=== PATIENT | female | born 1935 | race Caucasian/White ===

== ENCOUNTER 2016-12-16 13:09 | Observation (INO) | payer MEDICARE, OTHER ==
[~2016-12-16] VITALS: Ht 154.9 cm; Wt 85.9 kg
--- NOTE | ~2016-12-16 | OP ---
PATIENT NAME: VINAY SYED MEDICAL RECORD: [id number] :37 LOCATION:D.M2 D.2120 ADMISSION DATE:12/16/16 SURGEON: CYRUS JOHANSEN MD DATE OF OPERATION: 12/17/2016 PROCEDURES: 1. PTCA stent of the LAD. 2. Intravascular ultrasound of the LAD. 3. Left heart catheterization. 4. Selective coronary angiography. 5. Left ventriculogram. INDICATION: Angina and coronary artery disease. PROCEDURE IN DETAIL: After informed consent was obtained and after a detailed explanation of the risks, benefits as well as alternative therapies, the patient elected to proceed with angiogram and angioplasty. The right radial area was prepped and draped in normal sterile fashion. The right radial artery was cannulated via modified Seldinger technique with placement of 6-Pashto sheath. All catheters exchanged through this sheath. FINDINGS: The left ventriculogram was performed in standard 30-degree CHAHAL view, reveals preserved cardiac wall motion, ejection fraction 55%. SELECTIVE CORONARY ANGIOGRAPHY: 1. Left main showed no significant angiographic disease. 2. Left anterior descending has greater than 70% stenosis throughout the proximal portion confirmed by intravascular ultrasound. 3. Left circumflex shows moderate irregularities, but no flow-limiting stenosis. 4. Right coronary has mild irregularities, but no flow-limiting stenosis. PTCA STENT OF THE LAD: The stent used was a 3.0 x 26 mm Integrity. Result was 0% residual stenosis. OVERALL IMPRESSION: Successful percutaneous transluminal coronary angioplasty stent of the left anterior descending going from greater than 70% initial stenosis to 0% residual stenosis. TRANSINT:[id number] Voice Confirmation ID: [id number] DOCUMENT ID: [id number] CYRUS JOHANSEN MD CC: [id number] DICTATION DATE: 12/17/16 1126 ELASTIC ATTACHER OVERLOCK: 12/18/16 0136 DIS IN 12/17/16 [facility] [address] [place] [address]
--- NOTE | ~2016-12-16 | HEMODYNAMI ---
PATIENT:VINAY SYED MEDICAL RECORD: [id number] : 39 LOCATION:[facility] D.2120 ADMISSION DATE: 12/16/16 Generatedon:12/17/201611:31 Patient name: VINAY SYED Patient #: [id number] SSN: DO B: 1935 Date of study: 12/17/2016 Page: Of Hemodynamic Procedure Report Patient Data Patient Demographics Procedure consent was obtained First Name: VINAY Gender: Female Last Name: YAHAIRA : 1935 [facility] Initial: ANUPAM Age: 81 year(s) Patient #: [id number] Race: Unknown Additional ID: [id number] Contact details Address: [address] [place] [address] [address] State: [place] City: [facility] Zip code: [address] Past Medical History Allergies Allergen Reaction Date Comments Reported Other allergy 12/17/2016 codiene Admission Admission Data Admission Date: 12/16/2016 Admission Time: 17:47 Room #: D.2120 Procedure Procedure Types Cath Procedure Diagnostic Procedure [facility] w/Coronaries FFR/IVUS Intra-Coronary IVUS Initial PCI Procedure Coronary Stent Initial Miscellaneous Procedures Moderate Sedation up to 15 minutes Procedure Description Procedure Date Procedure Date: 12/17/2016 Procedure Start Time: 11:07 Procedure End Time: 11:26 Procedure Staff Name Function Will Kelly MD Performing Physician Adriano Peter RN Nurse Lorna Stevenson RT Monitor Toni Howard RT Scrub Rody Means RT Scrub Procedure Data Cath Procedure Fluoroscopy Diagnostic fluoroscopy Total fluoroscopy Time: 5.9 time: 5.9 min min Diagnostic fluoroscopy Total fluoroscopy dose: 674 dose: 674 mGy mGy Contrast Material Contrast Material Type Amount (ml) Isovue 300 89 Entry Location Entry Primary Successful Side Size Upsize Upsize Entry Closure Marsh ccessful Closure Location (Fr) 1 (Fr) 2 (Fr) Remarks Device Remarks Radial Right 6 Fr Mechanical TR band artery Short Compression Estimated blood loss: 10 ml Diagnostic catheters Device Type Used For End Catheter Placement Diagnostic Terumo 5Fr Procedure [place] 110cm catheter Procedure Complications No complications Procedure Medications Medication Administration Route Dosage 0.9% NaCl I.V. 100 ml/hr Oxygen NC 2 l/min Heparin Flush Bag added to field 2 bags (1000units/500ml NS) Lidocaine 2% added to field 20 Radial Cocktail added to field 1 syringe (Verapomil 2mg/Nitro 400mcg/Heparin 1500units) Versed I.V. 1 mg Fentanyl I.V. 50 mcg Versed I.V. 1 mg Fentanyl I.V. 50 mcg Radial Cocktail I.A. 1 syringe (Verapomil 2mg/Nitro 400mcg/Heparin 1500units) Heparin Bolus I.V. 4000 units Integrilin (Bolus I.V. 8.5 ml 2mg/ml) Plavix P.O. 600 mg Hemodynamics Rest Heart Rate: 85 (bpm) Snapshots Pre Cath Intra NCS Post Cath Vital Signs Time Heart Resp SPO2 etCO2 [id number] NIBP (mmHg) Rhythm Pain Sedation Rate (ipm) (%) (mmHg) (mmHg) Status Level (bpm) 10:57:43 86 26 94 0 0 165/89(121) NSR 0 (11) 10(A) , No pain 11:02:41 85 16 88 0 0 160/81(126) NSR 0 (11) 10(A) , No pain 11:07:31 84 14 98 0 0 153/74(116) NSR 0 (11) 10(A) , No pain 11:12:22 85 16 92 0 0 137/65(106) NSR 0 (11) 10(A) , No pain 11:17:11 87 19 94 0 0 145/75(113) NSR 0 (11) 10(A) , No pain 11:22:02 86 15 96 0 0 145/78(119) NSR 0 (11) 10(A) , No pain 11:26:54 86 14 97 0 0 153/78(127) NSR 0 (11) 10(A) , No pain Medications Time Medication Route Dose Verified Delivered Reason Note s Effectiveness by by 10:54:46 0.9% NaCl I.V. 100 Adriano Adriano Per physician ml/hr Brittani Peter RN RN 10:55:01 Oxygen NC 2 l/min Adriano Adriano Per physician Brittani Peter RN RN 10:55:22 Heparin Flush added 2 bags Adriano Adriano used for Bag to Brittani Peter procedure (1000units/500ml field RN RN NS) 10:55:44 Lidocaine 2% added 20ml Adriano Adriano for local to vial Lormessi Peter anesthetic RN RN 11:05:31 Radial Cocktail added 1 Adriano Adriano used for (Verapomil to syringe Brittani Peter procedure 2mg/Nitro RN RN 400mcg/Heparin 1500units) 11:05:42 Versed I.V. 1 mg Adriano Adriano for sedation Brittani Peter RN RN 11:05:54 Fentanyl I.V. 50 mcg Adriano Adriano for sedation Brittani Peter RN RN 11:08:12 Versed I.V. 1 mg Adriano Adriano for sedation Brittani Peter RN RN 11:08:23 Fentanyl I.V. 50 mcg Adriano Adriano for sedation Brittani Peter RN RN 11:09:17 Radial Cocktail I.A. 1 Adriano Will for (Verapomil syringe Brittani Kelly MD vasodilation 2mg/Nitro RN 400mcg/Heparin 1500units) 11:19:59 Heparin Bolus I.V. 4000 Adriano Adriano for units Brittani Peter anticoagulation RN RN 11:20:22 Integrilin I.V. 8.5ml Adriano Adriano for (Bolus 2mg/ml) Brittani Peter antiplatelet RN RN therapy 11:22:12 Plavix P.O. 600 mg Adriano Adriano for Brittani Peter antiplatelet RN RN therapy Procedure Log Time Note 10:35:36 Toni Howard RT(R) sent for patient. Start room use. 10:50:38 Time tracking: Regular hours 10:50:43 Plan of Care:Hemodynamics will remain stable., Cardiac rhythm will remain stable., Comfort level will be maintained., Respiratory function will remain adequate., Patient/ family verbilizes understanding of procedure., Procedure tolerated without complication., Recovers from procedure without complications.. 10:50:58 Patient received from PCU to CCL 1 Alert and oriented. Tansferred to table in Supine position. 10:50:59 Warm blankets applied, and pauline hugger turned on for patient comfort. 10:51:00 Correct patient and procedure confirmed by team. 10:51:01 Signed procedure consent form obtained from patient. 10:51:01 ECG and BP/O2 sat monitors applied to patient. 10:54:46 0.9% NaCl 100 ml/hr I.V. was administered by Adriano Peter RN; Per physician; 10:55:01 Oxygen 2 l/min NC was administered by Adriano Peter RN; Per physician; 10:55:22 Heparin Flush Bag (1000units/500ml NS) 2 bags added to field was administered by Adriano Peter RN; used for procedure; 10:55:44 Lidocaine 2% 20ml vial added to field was administered by Adriano Peter RN; for local anesthetic; 10:56:37 Baseline sample Acquired. 10:56:37 Vital chart was started 10:56:42 Rhythm: sinus rhythm 10:56:44 Full Disclosure recording started 10:57:07 H&P Date Dictated: 12/17/2016 Within 30 days and on chart.. 10:57:10 Pre-procedure instructions explained to patient. 10:57:12 Family in waiting room. 10:57:19 Patient NPO since Midnight. 10:57:32 Patient allergic to Other allergycodiene 10:57:35 Is the patient allergic to Iodine/contrast media? No. 10:57:46 Is patient on blood thinner?Yes 10:57:54 ACC The patient was administered the following blood thiners within the last 24 hours: Coumadin 10:57:59 Patient diabetic? No. 10:58:04 Snore? Yes 10:58:05 Sleep apnea? Yes 10:58:11 Airway obstruction? Yes COPD 10:58:15 Dentures? No ? 10:58:28 Patient pain scale 0/10 ?. 10:58:38 IV patent on arrival in right hand with 0.9% NaCl at O. 10:58:47 Lab results completed and on chart. 10:58:53 Right Radial & Right Groin area was prepped with chlora-prep and draped in sterile fashion 10:58:55 Alarms reviewed by R. N. 10:58:56 Sharps counted by scrub and verified by R.N. 10:58:58 Physician paged 10:59:09 Use device set Radial Dx 10:59:10 Acist Syringe opened to sterile field. 10:59:11 Medline Cath Pack opened to sterile field. 10:59:11 Bag Decanter opened to sterile field. 10:59:12 Terumo 6Fr Slender Glidesheath opened to sterile field. 10:59:12 St Elliot 260cm J .035 wire opened to sterile field. 10:59:12 Acist Hand Control opened to sterile field. 10:59:13 Acist Manifold opened to sterile field. 10:59:13 Tegaderm 4 x 4 opened to sterile field. 10:59:14 MBrace Wrist Support opened to sterile field. 11:02:31 Physician arrived ::32 --------ALL STOP TIME OUT------ ::32 Final Timeout: patient, procedure, and site verified with staff and physician. All members of the team are in agreement. 11:02:35 Right Radial & Right Groin site verified by team. 11:02:38 Physical assessment completed. ASA score P 2 - A patient with mild systemic disease as per Will Kelly MD. 11:02:42 Sedation plan: IV Moderate Sedation Versed, Fentanyl 11:03:38 Zero performed for pressure channel P1 11:05:31 Radial Cocktail (Verapomil 2mg/Nitro 400mcg/Heparin 1500units) 1 syringe added to field was administered by Adriano Peter RN; used for procedure; 11:05:42 Versed 1 mg I.V. was administered by Adriano Peter RN; for sedation; 11:05:54 Fentanyl 50 mcg I.V. was administered by Adriano Peter RN; for sedation; 11:07:32 Procedure started. 11:07:47 Local anesthetic to right radial artery with Lidocaine 2% by Will Kelly MD.INITIAL ACCESS ONLY 11:08:00 A 6 Fr Short sheath was inserted into the Right Radial artery 11:08:12 Versed 1 mg I.V. was administered by Adriano Peter RN; for sedation; 11:08:23 Fentanyl 50 mcg I.V. was administered by Adriano Peter RN; for sedation; :09:17 Radial Cocktail (Verapomil 2mg/Nitro 400mcg/Heparin 1500units) 1 syringe I.A. was administered by Will Kelly MD; for vasodilation; 11::17 A Diagnostic Terumo 5Fr [place] 110cm catheter was advanced over the wire and used for Procedure. 11:10:03 LV angiography performed. 11:10:23 LCA angiography performed. 11:12:28 RCA angiography performed. 11:12:30 Catheter removed. 11:13:51 6 Fr jl3.5 guide catheter was inserted over the wire 11:14:08 Whisper wire advanced. 11:16:06 Wire advanced across lesion. 11:16:15 IVUS catheter advanced over wire. 11:19:20 IVUS catheter removed over wire. 11:19:59 Heparin Bolus 4000 units I.V. was administered by Adriano Peter RN; for anticoagulation; 11:20:22 Integrilin (Bolus 2mg/ml) 8.5ml I.V. was administered by Adriano Peter RN; for antiplatelet therapy; 11:20:40 Inflation Number: 1 A [employer] Networkstr[employer] Integrity 3.0 X 26 stent was prepped and advanced across the Mid LAD. The stent was deployed at 13 RAYA for 0:10 (min:sec). 11:20:49 Medtronic Launcher 6Fr JL 3.5 guide catheter opened to sterile field. 11:20:50 [employer] BasixCompak Inflation Kit opened to sterile field. 11:20:51 [place] Kiana Eagleye IVUS Catheter opened to sterile field. 11:21:35 Stent catheter was removed intact over wire. 11:21:37 Wire removed. 11:21:39 Guide catheter removed. 11:22:12 Plavix 600 mg P.O. was administered by Adriano Peter RN; for antiplatelet therapy; 11:22:20 Terumo TR Band Standard opened to sterile field. 11:23:26 Sheath removed intact; hemostasis achieved with Mechanical Compression to the Right Radial artery. 11:23:32 Procedure ended.(Physican Out) 11:23:48 Fluoroscopy time 05.90 minutes. 11:23:54 Flurop Dose total: 674 11:23:54 Fluoroscopy dose: 674 mGy 11:23:57 Contrast amount:Isovue 300 89ml. 11:23:59 Sharps counted by scrub and verified by R.N. 11:24:05 TR band inflated with 10cc of air. 11:24:06 Insertion/operative site no bleeding no hematoma. 11:24:08 Post Procedure Pulses reassessed and unchanged 11:24:13 Post procedure rhythm: unchanged. 11:24:16 Estimated blood loss: 10 ml 11:24:18 Post procedure instruction explained to patient.Patient verbalizes understanding. 11:24:37 Procedure type changed to Cath procedure, Diagnostic procedure, LHC, LHC w/Coronaries, FFR/IVUS, Intra-Coronary IVUS Initial, PCI procedure, Coronary Stent Initial, Miscellaneous Procedures, Moderate Sedation up to 15 minutes 11:25:07 Procedure and supply charges have been captured, reviewed, submitted and are correct. 11:26:10 Procedure Complication : No complications 11:26:14 Vital chart was stopped 11::14 See physician's report for complete and final results. 11:26:17 Report given to [facility]. 11:26:20 Patient transfered to [facility] with Bed. 11:26:24 Procedure ended. 11:26:24 Full Disclosure recording stopped 11:26:27 End room use (Document Last) 11:26:44 ACC-PCI Only Patient was given prescriptions, or instructed by Will Kelly MD to start/continue the following medications upon discharge: Plavix Intervention Summary Intervention Notes Time ActionType Lesion and Equipment Action# Pressure Duration Attributes Used 11:20:40 Place stent Mid LAD Medtronic 1 13 00:10 Integrity 3.0 X 26 stent Device Usage Item Name Manufacture Quantity Catalog Hospital Part Current Minimal Lot# / Number Charge Number Stock Stock Serial# Code Acist Acist 1 62274 228234 946476 [id number] 20 Syringe Medical Systems Inc Medline Cardinal 1 [id number] 539140 91541 035293 5 Cath Pack Health Bag Microtek 1 2001S 828638 22181 906456 5 Polymer Vision Medical Inc. Terumo 6Fr Terumo 1 [id number] 113504 920610 330241 [address] Elliot 1 517442 932570 774402 304200 30 260cm J .035 wire Acist Hand Acist 1 05551 581331 870034 242852 5 Control Medical Systems Inc Acist Acist 1 75951 552845 232760 940075 5 Manifold Medical Systems Inc Tegaderm 4 3M 1 1626W 999808 001691 086729 5 x 4 MBrace Advanced 1 140-0250-00 195694 75845 420103 5 Wrist Vascular Support Dynamics Diagnostic Terumo 1 40-5013 231437 327705 406098 5 Terumo 5Fr [place] 110cm catheter Medtronic Medtronic 1 [id number] 023175 573012 1 [id number] Integrity 3.0 X 26 stent Medtronic Medtronic 1 [id number] 839384 02148 934460 1 Launcher 6Fr JL 3.5 guide catheter [facility] 1 [id number] 464135 797362 612306 15 BasixCompak Medical Inflation Kit [place] 1 [id number] 146039 752973 885531 8 Kiana Eagleye IVUS Catheter Terumo TR Terumo 1 [id number] 179556 790703 167719 40 Band Standard Signature Audit [place] Stage Time Signature Unsigned Intra-Procedure 12/17/2016 Lorna Stevenson 11:31:07 AM RT(R) Signatures Monitor : Lorna Stevenson Signature : RT Date : Time : [place] [address] [place] [address]
[2016-12-16 13:44] LABS: BASOPHILS 1.4 % (0-2); EOSINOPHILS 4.2 % (0-7); HEMATOCRIT 38.5 % (36.0-48.0); HEMOGLOBIN 12.5 g/dL (12-16); IMMATURE GRANULOCYTES 0.2 % (0-5); LYMPHOCYTES 31.1 % (15-50); MCH 29.9 pg (26.0-34.0); MCHC 32.5 g/dL (31.0-37.0); MCV 92.1 fL (80.0-100.0); MONOCYTES 9.2 % (2-11); NEUTROPHILS 53.9 % (40-80); PLATELET COUNT 236 10x3/uL (130-400); RBC 4.18 10x6/uL (4.00-5.40); RDW 16.2 % (11.5-14.5); WBC 5.7 10x3/uL (4.8-10.8)
[2016-12-16 14:20] LABS: ALKALINE PHOSPHATASE 105 U/L (46-116); ALT (SGPT) 16 U/L (10-68); BILIRUBIN - TOTAL 0.33 mg/dL (0.2-1.3); CALC OSMOLALITY 283 mosm/kg (275-300); CALCIUM 8.2 mg/dL (8.5-10.1); CARBON DIOXIDE 26.9 mmol/L (21.0-32.0); CHLORIDE - SERUM 104 mmol/L (98-107); GLUCOSE 148 mg/dL (74-106); PROTEIN - SERUM 7.4 g/dL (6.4-8.2); SODIUM 140 mmol/L (136-145); UREA NITROGEN 17 mg/dL (7-18); eGFR NON AFRICAN AMERICAN 57 mL/min (90-120)
[2016-12-16 14:28] LABS: D-DIMER-QUANTITATIVE < 0.27 ug/mLFEU (0.20-0.54)
[2016-12-16 14:32] LABS: CKMB 0.6 U/L (0.0-3.6); CREATINE KINASE 67 UL (21-215)
[2016-12-16 14:33] LABS: TROPONIN-I < 0.017 ng/mL (0.000-0.060)
[2016-12-16 14:34] LABS: INR 2.16 (0.85-1.17); PROTIME 24.1 SECONDS (11.6-15.0)
[2016-12-16 14:35] LABS: APTT 41.6 SECONDS (22.8-39.4)
[2016-12-16 19:00] VITALS: BP 115/48
--- NOTE | 2016-12-16 20:08 | NUR ---
RECIEVED PT TO ROOM 2120 @1930. PT ALERT/ORIENTED. TRANSFERRED FROM STRETCHER TO BED. ADMISSION ASSESSMENT COMPLETED. HISTORY OBTAINED. HOME MEDS REVIEWED. CALL TO DR JOHANSEN REGARDING PT BEING ON COUMADIN, ORDERS TO HOLD COUMADIN FOR TONIGHT, GIVE 2 UNITS OF FFP AND RECHECK PT/INR IN AM. ALSO TO PLACE PT ON CATH LIST FOR TOMORROW.
--- NOTE | 2016-12-16 22:07 | NUR ---
ASSISTED PT UP TO BATHROOM USING HER ROLLING WALKER. BACK TO BED AND STARTED IVF NS @ 50ML/HR TO LEFT A/C. WAITING FOR FFP TO BE READY.
--- NOTE | 2016-12-16 23:30 | NUR ---
CHECKED WITH BLOOD BANK AND THE FFP IS NOT READY YET.
[2016-12-17] VITALS: BP 114/58
--- NOTE | 2016-12-17 05:00 | NUR ---
0230 PT'S IV LEAKING. REMOVED FROM LEFT A/C. SITE 20 G TO RFA. 0310 OBTAINED FFP X 2 UNITS FROM LAB. BOTH UNITS INFUSED AND COMPLETED BY 0345AM. PT TOLERATED WELL. 0400 ASSISTED PT UP TO BATHROOM AND BACK TO BED. 0600 PT RESTING. MENTAL HEALTH TECH JUST TOOK PT TO BATHROOM TO VOID AGAIN. IVF INFUSING. PT HAS BEEN NPO SINCE MIDNIGHT
[2016-12-17 06:01] LABS: BASOPHILS 0.5 % (0-2); EOSINOPHILS 3.8 % (0-7); HEMATOCRIT 35.4 % (36.0-48.0); HEMOGLOBIN 11.4 g/dL (12-16); IMMATURE GRANULOCYTES 0.4 % (0-5); LYMPHOCYTES 28.8 % (15-50); MCH 29.5 pg (26.0-34.0); MCHC 32.2 g/dL (31.0-37.0); MCV 91.7 fL (80.0-100.0); MEAN PLATELET VOLUME 9.2 fL (7.4-10.4); MONOCYTES 11.6 % (2-11); NEUTROPHILS 54.9 % (40-80); PLATELET COUNT 236 10x3/uL (130-400); RBC 3.86 10x6/uL (4.00-5.40); RDW 16.3 % (11.5-14.5); WBC 5.5 10x3/uL (4.8-10.8)
[2016-12-17 06:05] VITALS: BP 115/48; Ht 154.9 cm; Wt 85.9 kg
[2016-12-17 06:05] LABS: PROTIME 19.7 SECONDS (11.6-15.0)
[2016-12-17 06:06] LABS: INR 1.67 (0.85-1.17)
[2016-12-17 06:15] LABS: CALC OSMOLALITY 279 mosm/kg (275-300); CALCIUM 8.7 mg/dL (8.5-10.1); CARBON DIOXIDE 28.7 mmol/L (21.0-32.0); CHLORIDE - SERUM 105 mmol/L (98-107); CREATININE - SERUM 0.8 mg/dL (0.6-1.3); GLUCOSE 107 mg/dL (74-106); POTASSIUM - SERUM 3.7 mmol/L (3.5-5.1); SODIUM 139 mmol/L (136-145); TROPONIN-I < 0.017 ng/mL (0.000-0.060); UREA NITROGEN 17 mg/dL (7-18); eGFR NON AFRICAN AMERICAN 73 mL/min (90-120)
[2016-12-17] MEDS ORDERED: DIOVAN320 MG PO (07:57)
[2016-12-17] MEDS ORDERED: FLOVENT DI50 MCG/DIS INH (07:59)
[2016-12-17] MEDS ORDERED: COREG6.25 MG PO (08:01)
[2016-12-17] MEDS ORDERED: KENALOG 0.1 % O15 GM TOPICAL (08:01)
[2016-12-17] MEDS ORDERED: ZYLOPRIM300 MG PO (08:02)
[2016-12-17] MEDS ORDERED: FUROSEMIDE20 MG PO (08:03)
[2016-12-17] MEDS ORDERED: PROTONIX40 MG PO (08:04)
[2016-12-17] MEDS ORDERED: ALBUTEROL1.25 MG/3 INH (08:06)
[2016-12-17] MEDS ORDERED: ADVAIR 250/501 DISK INH (08:07)
[2016-12-17] MEDS ORDERED: COUMADIN2 MG PO (08:07)
[2016-12-17] MEDS ORDERED: NORVASC5 MG PO (08:08)
[2016-12-17] MEDS ORDERED: MECLIZINE HCL25 MG PO (08:09)
[2016-12-17] MEDS ORDERED: XANAX0.5 MG PO (08:09)
[2016-12-17] MEDS ORDERED: CYMBALTA60 MG PO (08:10)
[2016-12-17] MEDS ORDERED: ULTRAM50 MG PO (08:11)
[2016-12-17] MEDS ORDERED: ATIVAN0.5 MG PO (08:11)
[2016-12-17] MEDS ORDERED: FERROUS GLUCON324 MG PO (08:13)
[2016-12-17 08:25] VITALS: BP 152/75
--- NOTE | 2016-12-17 09:57 | NUR ---
FFP INFUSING AT THIS TIME. TOLERATING FFP WELL. PATIENT TO MERCERIZER MACHINE OPERATOR AFTER INFUSION COMPLETE. NO DISTRESS.
--- NOTE | 2016-12-17 10:37 | NUR ---
PREOP MEDICATIONS ADMINSTERED AT THIS TIME AFTER FFP COMPLETED INFUSING. NO DISTRESS.
--- NOTE | 2016-12-17 10:50 | NUR ---
1040 PATIENT LEFT FOR CERTIFIED ORTHOTIST PRACTICE MANAGER VIA BED. NO DISTRESS UPON LEAVING UNIT.
--- NOTE | 2016-12-17 11:41 | NUR ---
RECEIVED PATIENT BACK FROM RVDA MASTER CERTIFIED RV TECHNICIAN. ONE STENT PLACED. TR BAND TO RIGHT WRIST. PULSES PATENT. NO BLEEDING FROM SITE. IV FLUIDS INFUSING ORDERED. NO DISTRESS. RESTING WITH EYES CLOSED, EASILY AROUSED.
--- NOTE | 2016-12-17 12:39 | NUR ---
5CC RELEASED FROM TR BAND TO RIGHT WRIST. ASSISTED PATIENT TO RESTROOM AND BACK TO BED. STUDENT NURSES AT BEDSIDE. NO DISTRESS.
--- NOTE | 2016-12-17 14:16 | NUR ---
TR BAND TO RIGHT WRIST REMOVED. NO BLEEDING FROM SITE. BOOD CAPILLARY REFIL. 2X2 APPLIED TO RIGHT WRIST AND COVERED WITH CLEAR TEGADERM. NO DISTRESS. CALL LIGHT WITHIN REACH.
[2016-12-17] MEDS ORDERED: ASPIRIN81 MG PO (15:27)
[2016-12-17] MEDS ORDERED: PLAVIX75 MG PO (15:27)
--- NOTE | 2016-12-17 18:23 | NUR ---
1630 20 GAUGE REMOVED FROM RIGHT FOREARM. CATHETER TIP INTACT.NO BLEEDING FROM SITE. 2X2 GAUZE APPLIED AND SECURED WITH TAPE. 1640 DISCHARGE INSTRUCTIONS PROVIDED. VERBALIZED UNDERSTANDING OF ALL INSTRUCTIONS PROVIDED. PRESCRIPTION GIVEN FOR PLAVIX. 1730 PATIENT LEFT UNIT VIA WHEELCHAIR. PATIENT DISCHARGING TO HOME. PATIENT LEFT UNIT VIA WHEELCHAIR WITH ALL PERSONAL BELONIGINGS IN NO ACUTE DISTRESS.
== END 2016-12-17 17:30 | disposition home or self-care (01) ==
LOC: D.ER 13:09 → D.M2 17:47 → OBSVTIME 17:47 → D.M2 17:47
PROVIDERS: Emergency Medicine; ADMIT Internal Medicine Interventional Cardiology
DX: I25.119 Atherosclerotic heart disease of native coronary artery with unspecified angina pectoris (principal)

== ENCOUNTER → 2017-01-14 12:23 | Outpatient (CLI) | payer MEDICARE, OTHER ==
[2016-12-17 06:05] VITALS: BMI 35.8
[~2017-01-14 12:23] MED LIST: ADVAIR 250/501 DISK INH; ALBUTEROL1.25 MG/3 INH; ASPIRIN81 MG PO; ATIVAN0.5 MG PO; COREG6.25 MG PO; COUMADIN2 MG PO; CYMBALTA60 MG PO; DIOVAN320 MG PO; FERROUS GLUCON324 MG PO; FLOVENT DI50 MCG/DIS INH; FLUTICASONE PRO16 GM NASAL; FUROSEMIDE20 MG PO; GABAPENTIN100 MG PO; K-TAB10 MEQ PO; KENALOG 0.1 % O15 GM TOPICAL; MECLIZINE HCL25 MG PO; NORVASC5 MG PO; PLAVIX75 MG PO; PROTONIX40 MG PO; ULTRAM50 MG PO; VOLTAREN100 GM TOPICAL; XANAX0.5 MG PO; ZYLOPRIM300 MG PO
[2017-01-14 13:17] LABS: INR 2.37 (0.85-1.17)
== END | disposition home or self-care (01) ==
LOC: D.LABREF 12:23
PROVIDERS: Family Medicine
DX: I25.119 Atherosclerotic heart disease of native coronary artery with unspecified angina pectoris (principal)

== ENCOUNTER → 2017-01-23 11:49 | Outpatient (CLI) | payer MEDICARE, OTHER ==
[2016-12-17 06:05] VITALS: BMI 35.8
[2017-01-23 15:10] LABS: INR 1.99 (0.85-1.17); PROTIME 22.6 SECONDS (11.6-15.0)
== END | disposition home or self-care (01) ==
LOC: D.LABREF 11:49
PROVIDERS: Family Medicine
DX: I21.3 ST elevation (STEMI) myocardial infarction of unspecified site (principal); Z51.81 Encounter for therapeutic drug level monitoring; Z79.01 Long term (current) use of anticoagulants

== ENCOUNTER → 2017-01-30 15:27 | Outpatient (CLI) | payer MEDICARE, OTHER ==
[2016-12-17 06:05] VITALS: BMI 35.8
[2017-01-30 16:09] LABS: INR 1.32 (0.85-1.17); PROTIME 16.3 SECONDS (11.6-15.0)
== END | disposition home or self-care (01) ==
LOC: D.LABREF 15:27
PROVIDERS: Family Medicine
DX: I25.119 Atherosclerotic heart disease of native coronary artery with unspecified angina pectoris (principal)

== ENCOUNTER → 2017-02-06 11:21 | Outpatient (CLI) | payer MEDICARE, OTHER ==
[2016-12-17 06:05] VITALS: BMI 35.8
[2017-02-06 13:51] LABS: INR 1.88 (0.85-1.17); PROTIME 21.6 SECONDS (11.6-15.0)
== END | disposition home or self-care (01) ==
LOC: D.LABREF 11:21
PROVIDERS: Family Medicine
DX: I25.119 Atherosclerotic heart disease of native coronary artery with unspecified angina pectoris (principal)

== ENCOUNTER → 2017-02-14 13:31 | Outpatient (CLI) | payer MEDICARE, OTHER ==
[2016-12-17 06:05] VITALS: BMI 35.8
[2017-02-14 14:55] LABS: INR 2.2 (0.85-1.17); PROTIME 24.5 SECONDS (11.6-15.0)
== END | disposition home or self-care (01) ==
LOC: D.LABREF 13:31
PROVIDERS: Family Medicine
DX: I25.119 Atherosclerotic heart disease of native coronary artery with unspecified angina pectoris (principal)

== ENCOUNTER 2017-03-24 20:34 | Inpatient (IN) | payer MEDICARE, OTHER ==
[~2017-03-24] VITALS: Ht 154.9 cm; Wt 85.5 kg
--- NOTE | ~2017-03-24 | HEMODYNAMI ---
PATIENT:VINAY SYED MEDICAL RECORD: [id number] : 39 LOCATION:[facility] D.2118 ADMISSION DATE: 03/24/17 Generatedon:03/25/201711:10 Patient name: VINAY SYED Patient #: [id number] SSN: DO B: 1935 Date of study: 03/25/2017 Page: Of Hemodynamic Procedure Report Patient Data Patient Demographics Procedure consent was obtained First Name: VINAY Gender: Female Last Name: YAHAIRA : 1935 [facility] Initial: ANUPAM Age: 81 year(s) Patient #: [id number] Race: Unknown Additional ID: [id number] Contact details Address: [address] [place] [address] [address] State: [place] City: [facility] Zip code: [address] Past Medical History Allergies Allergen Reaction Date Comments Reported Other allergy 12/17/2016 codiene Admission Admission Data Admission Date: 03/24/2017 Admission Time: 22:26 Room #: D.2118 Lab Results Lab Result Date: 03/25/2017 Lab Result Time: 0:00 Biochemistry Name Units Result Min Max BUN mg/dl 20 --(----)*- 7 18 Creatinine mg/dl 1 --(--*-)-- 0.6 1.3 CBC Name Units Result Min Max Hemoglobin g/dl 11.2 *-(----)-- 13.5 17.5 Procedure Procedure Types Cath Procedure Diagnostic Procedure LHC LHC w/Coronaries Miscellaneous Procedures Moderate Sedation up to 15 minutes Procedure Description Procedure Date Procedure Date: 03/25/2017 Procedure Start Time: 10:13 Procedure Staff Name Function Nitin Camacho MD Performing Physician Toni Howard RT Monitor Lorna Stevenson RT Scrub Rody Means RT Monitor Dianne Aly RN Livestock Producer Trena Leggett RN Nurse Procedure Medications Medication Administration Route Dosage 0.9% NaCl I.V. 100 ml/hr Oxygen NC 2 l/min Lidocaine 2% added to field 20 Heparin Flush Bag added to field 2 bags (1000units/500ml NS) Versed I.V. 1 mg Hemodynamics Rest HGB: 11.2 (g/dl) Heart Rate: 85 (bpm) Snapshots Pre Cath Intra NCS Post Cath Vital Signs Time Heart Resp SPO2 etCO2 NIBP (mmHg) Rhythm Pain Sedation Rate (ipm) (%) (mmHg) Status Level (bpm) 10:37:00 84 14 98 40.2 133/73(116) NSR 0 (11) 10(A) , No pain 10:41:49 84 14 99 34.2 126/71(103) NSR 0 (11) 10(A) , No pain 10:46:35 84 16 98 36.4 121/67(97) NSR 0 (11) 10(A) , No pain 10:51:20 84 14 98 35.7 120/70(95) NSR 0 (11) 10(A) , No pain 10:56:03 87 16 97 0 124/85(111) NSR 0 (11) 10(A) , No pain 11:00:47 83 14 98 38 135/72(109) NSR 0 (11) 10(A) , No pain 11:05:34 83 14 95 41.8 133/69(106) NSR 0 (11) 10(A) , No pain 11:10:15 0 No Cuff NSR 0 (11) 10(A) , No pain Medications Time Medication Route Dose Verified Delivered Reason Notes E ffectiveness by by 10:32:28 0.9% NaCl I.V. 100 Nitin Trena used for ml/hr Leonardo Leggett RN procedure 10:32:49 Oxygen NC 2 Nitin Trena Per l/min Leonardo Leggett RN physician 10:32:57 Lidocaine 2% added 20ml Nitin Nitin for local to vial Leonardo Camacho MD anesthetic field 10:33:07 Heparin Flush added 2 Nitin Nitin used for Bag to bags Leonardo Camacho MD procedure (1000units/500ml field GODOY NS) 10:58:12 Versed I.V. 1 mg Nitin Trena for given due Leonardo Leggett RN anxiety to MD patient anxiety awaiting lab results per dr. camacho, not for sedation. Procedure Log Time Note 10:14:13 Lorna Stevenson RT(R) sent for patient. Start room use. 10:14:14 Time tracking: Regular hours 10:14:19 Plan of Care:Hemodynamics will remain stable., Cardiac rhythm will remain stable., Comfort level will be maintained., Respiratory function will remain adequate., Patient/ family verbilizes understanding of procedure., Procedure tolerated without complication., Recovers from procedure without complications.. 10:15:01 Lab Result : BUN 20 mg/dl 10:15:01 Lab Result : Creatinine 1 mg/dl 10:15:01 Lab Result : Hemoglobin 11.2 g/dl 10:15:05 Lab results completed and on chart. 10:15:22 H&P Date Dictated: 03/24/2017 Within 30 days and on chart.. 10:20:32 Patient received from Med II to CCL 1 Alert and oriented. Tansferred to table in Supine position. 10:20:33 Warm blankets applied, and pauline hugger turned on for patient comfort. 10:20:34 Correct patient and procedure confirmed by team. 10:20:35 Signed procedure consent form obtained from patient. 10:20:36 ECG and BP/O2 sat monitors applied to patient. 10:23:18 Pre-procedure instructions explained to patient. 10:23:21 Family unavailable. 10:23:23 Patient NPO since Midnight. 10:23:29 Is the patient allergic to Iodine/contrast media? No. 10:23:44 Is patient on blood thinner?Yes 10:23:49 ACC The patient was administered the following blood thiners within the last 24 hours: Coumadin 10:23:52 Patient diabetic? No. 10:24:07 Snore? Yes 10:24:09 Sleep apnea? Yes 10:24:11 Deviated septum? No 10:24:18 Opens mouth fully? Yes 10:24:21 Sticks out tongue? Yes 10:24:49 Dentures? No ? 10:24:54 Patient pain scale 0/10 ?. 10:25:09 IV patent on arrival in right forearm with 0.9% NaCl at O. 10:25:18 Right groin area was prepped with chlora-prep and draped in sterile fashion 10:25:21 Alarms reviewed by R. N. 10:25:21 Sharps counted by scrub and verified by R.N. 10:31:37 Vital chart was started 10:32:28 0.9% NaCl 100 ml/hr I.V. was administered by Trena Leggett RN; used for procedure; 10:32:49 Oxygen 2 l/min NC was administered by Trena Leggett RN; Per physician; 10:32:57 Lidocaine 2% 20ml vial added to field was administered by Nitin Camacho MD; for local anesthetic; 10:33:07 Heparin Flush Bag (1000units/500ml NS) 2 bags added to field was administered by Nitin Camacho MD; used for procedure; 10:36:42 Baseline sample Acquired. 10:36:50 Rhythm: sinus rhythm 10:36:52 Full Disclosure recording started 10:40:07 Pt states she takes Warfarin daily. Lab was drawn in the General Service Technician and taken to Lab for a PT/INR. Results pending. 10:58:12 Versed 1 mg I.V. was administered by Trena Leggett RN; for anxiety; given due to patient anxiety awaiting lab results per dr. camacho, not for sedation. 11:09:11 PT/INR results called by John in the lab. Results are PT 29, INR 2.82. Procedure cancelled due to labs. 11:10:11 Report given to PCU. 11:10:16 Patient transfered to PCU with Bed. 11:10:17 End room use (Document Last) 11:10:37 Vital chart was stopped Signature Audit [place] Stage Time Signature Unsigned Intra-Procedure 03/25/2017 Toni Howard 11:10:34 AM RT(R) Signatures Monitor : Toni Howard RT Signature : Date : Time : Monitor : Rody Means Signature : RT Date : Time : [id number] [facility] [place] [address]
--- NOTE | ~2017-03-24 | HEMODYNAMI ---
PATIENT:VINAY SYED MEDICAL RECORD: [id number] : 39 LOCATION:[facility] D.2118 ADMISSION DATE: 03/26/17 Generatedon:03/27/20179:48 Patient name: VINAY SYED Patient #: [id number] SSN: DO B: 1935 Date of study: 03/27/2017 Page: Of Hemodynamic Procedure Report Patient Data Patient Demographics Procedure consent was obtained First Name: VINAY Gender: Female Last Name: YAHAIRA : 1935 [facility] Initial: ANUPAM Age: 81 year(s) Patient #: [id number] Race: Unknown Additional ID: [id number] Contact details Address: [address] [place] [address] [address] State: [place] City: [facility] Zip code: [address] Past Medical History Allergies Allergen Reaction Date Comments Reported Other allergy 12/17/2016 codiene Admission Admission Data Admission Date: 03/26/2017 Admission Time: 13:03 Room #: D.2118 Lab Results Lab Result Date: 03/27/2017 Lab Result Time: 0:00 Biochemistry Name Units Result Min Max BUN mg/dl 20 --(----)*- 7 18 Creatinine mg/dl 0.8 --(-*--)-- 0.6 1.3 CBC Name Units Result Min Max Hemoglobin g/dl 10.4 *-(----)-- 13.5 17.5 Procedure Procedure Types Cath Procedure Diagnostic Procedure LHC LHC w/Coronaries PCI Procedure PTCA PTCA Initial Miscellaneous Procedures Moderate Sedation up to 45 minutes Procedure Description Procedure Date Procedure Date: 03/27/2017 Procedure Start Time: 9:10 Procedure End Time: 9:43 Procedure Staff Name Function Nitin Patterson MD Performing Physician Gena Silva RT Monitor Lorna Stevenson RT Scrub Trena Leggett RN Nurse Toni Howard RT Contract Accountant Procedure Data Cath Procedure Fluoroscopy Diagnostic fluoroscopy Total fluoroscopy Time: 5.8 time: 5.8 min min Diagnostic fluoroscopy Total fluoroscopy dose: dose: 1498 mGy 1498 mGy Contrast Material Contrast Material Type Amount (ml) Isovue 300 106 Entry Location Entry Primary Successful Side Size Upsize Upsize Entry Closure Succes sful Closure Location (Fr) 1 (Fr) 2 (Fr) Remarks Device Remarks Femoral Right 5 Fr 6 Fr Exoseal artery Short Estimated blood loss: 5 ml Diagnostic catheters Device Type Used For End Catheter Placement MULTIPACK JL 4.0 5Fr Left Coronary catheter Angiography MULTIPACK 3DRC 5Fr Right Coronary catheter Angiography MULTIPACK Pigtail 5 Fr LV Angiography catheter Procedure Complications No complications Procedure Medications Medication Administration Route Dosage 0.9% NaCl I.V. 100 ml/hr Oxygen NC 2 l/min Lidocaine 2% added to field 20 Heparin Flush Bag added to field 2 bags (1000units/500ml NS) Versed I.V. 1 mg Fentanyl I.V. 25 mcg Versed I.V. 1 mg Versed I.V. 1 mg Heparin Bolus I.V. 6000 units Versed I.V. 0.5 mg Fentanyl I.V. 25 mcg Nitroglycerin IC/IA I.C. 150 mcg Fentanyl I.V. 50 mcg Hemodynamics Rest Heart Rate: 84 (bpm) Pressure Samples Time Site Value (mmHg) Purpose Heart Use Rate(bpm) 9:21 LV 119/-9,17 EDP 75 9:21 AO 112/53(79) Pullback 87 9:21 LV 114/12,22 Pullback 87 Gradients Valve Time Site 1 Site 2 Mean SEP/DFP Peak To Heart Use (mmHg) (sec/min) Peak Rate (mmHg) (bpm) Aortic 9:21 LV AO 5 16 2 87 114/12,22 112/53(79) Calculations Valve P-P Mean Valve Index Valve Source Name Gradient Area Flow (cm2) Aortic 2 5 2 5 Snapshots Pre Cath Intra NCS Post Cath Vital Signs Time Heart Resp SPO2 etCO2 NIBP (mmHg) Rhythm Pain Sedation Rate (ipm) (%) (mmHg) Status Level (bpm) 9:01:03 83 16 98 0 152/61(104) NSR 0 (11) 10(A) , No pain 9:05:23 87 16 98 13.7 134/69(104) NSR 0 (11) 10(A) , No pain 9:09:42 83 16 96 30.4 117/61(87) NSR 0 (11) 10(A) , No pain 9:13:58 83 15 98 28.9 125/65(98) NSR 0 (11) 10(A) , No pain 9:18:11 84 14 96 0 121/61(92) NSR 0 (11) 10(A) , No pain 9:22:27 85 16 96 0 123/64(97) NSR 0 (11) 10(A) , No pain 9:26:48 84 16 97 24.3 123/62(92) NSR 0 (11) 10(A) , No pain 9:31:06 84 18 97 18.2 125/67(100) NSR 0 (11) 9(A) , No pain 9:35:22 85 15 96 9.9 131/65(93) NSR 0 (11) 9(A) , No pain 9:39:38 83 17 95 130/67(102) NSR 0 (11) 9(A) , No pain 9:43:58 86 16 98 133/67(88) NSR 0 (11) 10(A) , No pain Medications Time Medication Route Dose Verified Delivered Reason Notes Effectiveness by by 8:45:25 0.9% NaCl I.V. 100 Nitin Trena used for ml/hr Leonardo alba MD 8:45:34 Oxygen NC 2 Nitin Trena Per physician l/min Leonardo Leggett RN, MD 8:45:41 Lidocaine 2% added 20ml Nitin Nitin for local to vial Leonardo Patterson MD anesthetic field GODOY 8:45:47 Heparin Flush added 2 bags Nitin Nitin used for Bag to Leonardo Patterson MD procedure (1000units/500ml field GODOY NS) 9:09:42 Versed I.V. 1 mg Nitin Trena for sedation Leonardo Leggett RN, MD 9:09:54 Fentanyl I.V. 25 mcg Nitin Trena for sedation Leonardo Leggett RN, MD 9:11:22 Versed I.V. 1 mg Nitin Trena for sedation Leonardo Leggett RN, MD 9:13:47 Heparin Bolus I.V. 6000 Nitin Trena for verifi ed units Leonardo Leggett RN anticoagulation by MD hairston 9:13:47 Versed I.V. 1 mg Nitin Trena for sedation Leonardo Leggett RN, MD 9:23:47 Versed I.V. 0.5 mg Nitin Trena for sedation verifi ed Leonardo Leggett RN by MD hairston 9:31:37 Fentanyl I.V. 25 mcg Nitin Trena for sedation verifi ed Leonardo Leggett RN by MD hairston 9:36:57 Nitroglycerin I.C. 150mcg Nitin Nitin for verifi ed IC/IA Leonardo Patterson MD vasodilation by MD hairston 9:40:53 Fentanyl I.V. 50 mcg Nitin Trena for back pain verifi ed Leonardo Leggett RN by MD hairston Procedure Log Time Note 8:30:21 Toni Howard RT(R) sent for patient. Start room use. 8:43:18 Diagnostic Cath status Elective 8:43:22 Time tracking: Regular hours 8:43:27 Plan of Care:Hemodynamics will remain stable., Cardiac rhythm will remain stable., Comfort level will be maintained., Respiratory function will remain adequate., Patient/ family verbilizes understanding of procedure., Procedure tolerated without complication., Recovers from procedure without complications.. 8:43:33 Patient received from Med II to CCL 2 Alert and oriented. Tansferred to table in Supine position. 8:45:25 0.9% NaCl 100 ml/hr I.V. was administered by Trena Leggett RN; used for procedure; 8:45:34 Oxygen 2 l/min NC was administered by Trena Leggett RN; Per physician; 8:45:41 Lidocaine 2% 20ml vial added to field was administered by Nitin Patterson MD; for local anesthetic; 8:45:47 Heparin Flush Bag (1000units/500ml NS) 2 bags added to field was administered by Nitin Patterson MD; used for procedure; 8:53:27 Warm blankets applied, and pauline hugger turned on for patient comfort. 8:53:28 Correct patient and procedure confirmed by team. 8:53:29 Signed procedure consent form obtained from patient. 8:53:29 ECG and BP/O2 sat monitors applied to patient. 8:56:31 H&P Date Dictated: 03/26/2017 Within 30 days and on chart.. 8:56:32 Pre-procedure instructions explained to patient. 8:56:33 Pre-op teaching completed and patient verbalized understanding. 8:56:35 Family unavailable. 8:56:36 Patient NPO since Midnight. 8:56:37 Is the patient allergic to Iodine/contrast media? No. 8:56:40 Is patient on blood thinner?Yes 8:56:43 ACC The patient was administered the following blood thiners within the last 24 hours: ACCPlavix 8:57:03 Patient diabetic? No. 8:57:06 Patient not . Patient is over age 55. 8:57:08 Previous problem with sedation/anesthesia? No ? 8:57:12 Snore? Yes 8:57:13 Sleep apnea? Yes 8:57:14 Deviated septum? No 8:57:15 Opens mouth fully? Yes 8:57:16 Sticks out tongue? Yes 8:57:21 Airway obstruction? Yes Asthma 8:57:25 Dentures? No ? 8:57:27 Pre procedure: right dorsailis pedis pulse 1+ Palpable, but thready & weak; easily obliterated 8:57:52 Physician opted for groin approach. 8:57:58 Patient pain scale 0/10 ?. 8:58:04 Lab results completed and on chart. 8:58:10 Right groin area was prepped with chlora-prep and draped in sterile fashion 8:58:11 Alarms reviewed by R. N. 8:58:11 Sharps counted by scrub and verified by R.N. 8:59:42 Vital chart was started 9:06:01 Physician arrived 9:06:01 --------ALL STOP TIME OUT------ 9:06:01 Final Timeout: patient, procedure, and site verified with staff and physician. All members of the team are in agreement. 9:06:10 Right groin site verified by team. 9:06:13 Physical assessment completed. ASA score P 2 - A patient with mild systemic disease as per Nitin Patterson MD. 9:06:16 Sedation plan: IV Moderate Sedation Medication:Versed, Fentanyl 9:07:09 Lab Result : Hemoglobin 10.4 g/dl 9:07:09 Lab Result : Creatinine 0.8 mg/dl 9:07:09 Lab Result : BUN 20 mg/dl 9:08:34 Use device set Femoral Dx 9:08:36 ACIST Syringe (93230) opened to sterile field. 9:08:36 Bag Decanter (2002S) opened to sterile field. 9:08:36 Medline Cath Pack ([id number]) opened to sterile field. 9:08:37 SHEATH 5FR [place]ola (AMS345) opened to sterile field. 9:08:38 DIAGNOSTIC WIRE .035 260cm J wire (786725) opened to sterile field. 9:08:40 ACIST Hand Control (70241) opened to sterile field. 9:08:40 ACIST Manifold (53938) opened to sterile field. 9:08:41 DIAGNOSTIC Multipack 5Fr catheter set (FF6535) opened to sterile field. 9:08:42 Tegaderm 4 x 4 (1626W) opened to sterile field. 9:09:42 Versed 1 mg I.V. was administered by Trena Leggett RN; for sedation; 9:09:54 Fentanyl 25 mcg I.V. was administered by Trena Leggett RN; for sedation; 9:10:14 Procedure started. 9:10:14 Full Disclosure recording started 9:10:19 Local anesthetic to right femoral artery with Lidocaine 2% by Nitin Patterson MD.INITIAL ACCESS ONLY 9:11:22 Versed 1 mg I.V. was administered by Trena Leggett RN; for sedation; 9:11:52 Access obtained with 4Fr micropunture. 9:12:16 Baseline sample Acquired. 9:12:28 Rhythm: sinus tachycardia 9:13:47 Heparin Bolus 6000 units I.V. was administered by Trena Leggett RN; for anticoagulation; verified by 9:13:47 Versed 1 mg I.V. was administered by Trena Leggett RN; for sedation; 9:15:02 A 5 Fr sheath was inserted into the Right Femoral artery 9:15:37 A MULTIPACK JL 4.0 5Fr catheter was advanced over the wire and used for Left Coronary Angiography. 9:16:45 Injector settings: Ml/sec: 3, Volume: 6, 9:18:31 Catheter removed. 9:18:36 A MULTIPACK 3DRC 5Fr catheter was advanced over the wire and used for Right Coronary Angiography. 9:18:48 RCA angiography performed. 9:18:52 Injector settings: Ml/sec: 3, Volume: 6, 9:20:29 Catheter removed. 9:20:35 A MULTIPACK Pigtail 5 Fr catheter was advanced over the wire and used for LV Angiography. 9:21:15 LV hemodynamics recorded. 9:21:17 LV gram done using CHAHAL 9:21:21 Injector settings: Ml/sec: 12, Volume: 8, 9:21:55 Catheter removed. 9:22:04 Proceeding to intervention. 9:22:33 SHEATH 6FR [place] (TEI500) opened to sterile field. 9:22:34 INFLATOR Merit BasixCompak (HZ0603) opened to sterile field. 9:22:35 GUIDE 6FR XBLAD 3.5 catheter ([id number]) opened to sterile field. 9:22:45 BMW 190cm [place] 2 J wire ([id number]) opened to sterile field. 9:22:46 BMW 190cm [place] 2 J wire ([id number]) opened to sterile field. 9:23:02 Sheath upsized to a 6 Fr Short. 9:23:10 6 Fr xblad 3.5 guide catheter was inserted over the wire 9:23:47 Versed 0.5 mg I.V. was administered by Trena Leggett RN; for sedation; verified by 9:26:49 bmw wire advanced. 9:31:37 Fentanyl 25 mcg I.V. was administered by Trena Leggett RN; for sedation; verified by 9:32:47 one bmw wire down LAD, other bmw wire down diagonal 9:33:11 Inflation number: 1 A EUPHORA 2.0 x 15 Balloon ([id number]) was prepped and advanced across the 1st Diag, then inflated to 10 RAYA for 0:10 (min:sec). 9:35:05 Balloon removed over the wire. 9:36:57 Nitroglycerin IC/IA 150mcg I.C. was administered by Nitin Patterson MD; for vasodilation; verified by 9:37:12 Inflation number: 2 A EUPHORA 2.5 x 12 Balloon ([id number]) was prepped and advanced across the 1st Diag, then inflated to 8 RAYA for 0:10 (min:sec). 9:38:23 Balloon removed over the wire. 9:40:53 Fentanyl 50 mcg I.V. was administered by Trena Leggett RN; for back pain; verified by 9:41:28 Wire removed. 9:41:28 Guide catheter removed. 9:41:41 EXOSEAL 6Fr (EX600) opened to sterile field. 9:42:09 Sheath removed intact; hemostasis achieved with Exoseal to the Right Femoral artery. 9:42:10 Procedure ended.(Physican Out) 9:42:51 Fluoroscopy time 05.80 minutes. 9:42:55 Flurop Dose total: 1498 9:42:55 Fluoroscopy dose: 1498 mGy 9:42:58 Contrast amount:Isovue 300 106ml. 9:43:00 Sharps counted by scrub and verified by R.N. 9:43:02 Insertion/operative site no bleeding no hematoma. 9:43:05 Post-op/insertion site Right Femoral artery dressed using a 4 x 4 and Tegaderm. 9:43:08 Post right femoral artery:stable 9:43:09 Post Procedure Pulses reassessed and unchanged 9:43:12 Post procedure rhythm: unchanged. 9:43:14 Estimated blood loss: 5 ml 9:43:16 Post procedure instruction explained to patient.Patient verbalizes understanding. 9:43:16 Patient needs reinforcement of post procedure teaching. 9:43:28 Procedure type changed to Cath procedure, Diagnostic procedure, LHC, LHC w/Coronaries, PCI procedure, PTCA, PTCA Initial, Miscellaneous Procedures, Moderate Sedation up to 45 minutes 9:43:29 Procedure and supply charges have been captured, reviewed, submitted and are correct. 9:43:33 Procedure Complication : No complications 9:43:35 Vital chart was stopped 9:43:36 See physician's report for complete and final results. 9:43:44 Report given to Med II. 9:43:48 Patient transfered to Med II with Stretcher. 9:43:50 Procedure ended. 9:43:50 Full Disclosure recording stopped 9:44:27 ACC-PCI Only Patient was given prescriptions, or instructed by Nitin Patterson MD to start/continue the following medications upon discharge: Plavix 9:44:29 End room use (Document Last) Intervention Summary Intervention Notes Time ActionType Lesion and Equipment Action# Pressure Duration Attributes Used 9:33:11 Inflate 1st Diag EUPHORA 1 10 00:10 balloon 2.0 x 15 Balloon ([id number]) 9:37:12 Inflate 1st Diag EUPHORA 2 8 00:10 balloon 2.5 x 12 Balloon ([id number]) Device Usage Item Name Manufacture Quantity Catalog Hospital Part Current Minimal L ot# / Number Charge Number Stock Stock Serial# Code ACIST Acist 1 55485 082746 713804 331160 20 Syringe Medical (42133) Systems Inc Bag Microtek 1 2001S 039145 39848 352168 5 Decanter Medical Inc. () Medline Cardinal 1 [id number] 920726 48764 878120 5 Cath Pack Health ([id number]) SHEATH 5FR Terumo 1 EYJ156 305820 897617 722584 40 Toivola (TLV974) DIAGNOSTIC [place] 1 461533 314977 316775 009288 30 WIRE .035 260cm J wire (606691) ACIST Hand Acist 1 55407 796296 123763 023835 5 Control Medical (84504) Systems Inc ACIST Acist 1 81117 044012 066635 174299 5 Manifold Medical (71764) Systems Inc DIAGNOSTIC Cardinal 1 IW6749 304461 70246 842810 30 Multipack Health 5Fr catheter set (QM1112) Tegaderm 4 3M 1 1626W 303047 524355 522769 5 x 4 (1626W) MULTIPACK Cardinal 1 336508 5 JL 4.0 5Fr Health catheter MULTIPACK Cardinal 1 605456 5 3DRC 5Fr Health catheter MULTIPACK Cardinal 1 860683 5 Pigtail 5 Health Fr catheter SHEATH 6FR Terumo 1 GSU875 913093 223500 441847 40 [place]ivola (RBV300) INFLATOR Merit 1 ZQ3170 806996 713671 955525 15 ENDOTRONIX Medical BasixCompak (NN0156) GUIDE 6FR Cardinal 1 [id number] 274911 909879 438984 10 XBLAD 3.5 Health catheter ([id number]) BMW 190cm Miller 2 [id number] 139856 29579 281792 5 [place] 2 Vascular J wire (2622647H) EUPHORA 2.0 Medtronic 1 [id number] 020365 172136 482044 5 2 [id number] x 15 Balloon (CVZ9261U) EUPHORA 2.5 Medtronic 1 [id number] 541565 897395 776466 5 2 [id number] x 12 Balloon ([id number]) EXOSEAL 6Fr Cardinal 1 EX600 275703 244232 289771 10 (EX600) Health Signature Audit [place] Stage Time Signature Unsigned Intra-Procedure 03/27/2017 Gena Silva 9:48:17 AM RT(R) Signatures Monitor : Gena Silva RT Signature : Date : Time : [id number] [place] [address]
--- NOTE | ~2017-03-24 | DS ---
PATIENT:VINAY SYED :[birth year] MEDICAL RECORD: [id number] DISCHARGE SUMMARY ADMISSION DATE: 03/26/17 DISCHARGE DATE: 03/27/17 DATE OF DISCHARGE: 03/27/2017 from the inpatient hospital. DISCHARGE DIAGNOSES: 1. Chest pain. 2. Coronary artery disease. 3. History of deep venous thrombosis. 4. History of pulmonary embolism. 5. Vertigo. 6. Non-Q-wave myocardial infarction. 7. Elevated INR. 8. Hypertension. 9. Depression. CONSULTS THIS HOSPITALIZATION: Cardiology with Leonardo. HOSPITAL COURSE: Dr. Patterson loaded with 300 mg of Plavix with plans for evaluation with angiography. She underwent repeat cardiac cath with PTCA to the diagonal times 2 and was continued on Plavix. She was hemodynamically stable post procedure and considered stable for discharge on 03/27/2017. DISCHARGE MEDICATIONS: As per discharge medication reconciliation. DISCHARGE DISPOSITION: The patient is discharged home. She will continue her current diet and level of activity. She will have home health for observation and assessment and follow up with [facility]. She will see primary care and specialist as directed. At least 30 minutes was spent in this discharge activity. TRANSINT:[id number] Voice Confirmation ID: [id number] DOCUMENT ID: [id number] Dictated By: ZAHIRA HOLGUIN I have interviewed/examined the above patient and agree with these documented findings. GOOD LARSEN MD at 1459 at 1500 CC: [id number] DICTATION DATE: 04/27/17 1530 SENIOR MANAGER MMCOE: 04/28/17 1052 DIS IN 03/27/17 [address] [place] [address]
[~2017-03-24 20:34] MED LIST changes: -FLUTICASONE PRO16 GM NASAL; -GABAPENTIN100 MG PO; -K-TAB10 MEQ PO; -VOLTAREN100 GM TOPICAL
[2017-03-24 21:05] LABS: BASOPHILS 1.1 % (0-2); EOSINOPHILS 5.9 % (0-7); HEMOGLOBIN 12.3 g/dL (12-16); IMMATURE GRANULOCYTES 0.3 % (0-5); LYMPHOCYTES 26.5 % (15-50); MCH 28.1 pg (26.0-34.0); MCHC 31.5 g/dL (31.0-37.0); MEAN PLATELET VOLUME 9.1 fL (7.4-10.4); MONOCYTES 11.8 % (2-11); NEUTROPHILS 54.4 % (40-80); RBC 4.38 10x6/uL (4.00-5.40); RDW 15.6 % (11.5-14.5); WBC 6.6 10x3/uL (4.8-10.8)
[2017-03-24 21:17] LABS: ALKALINE PHOSPHATASE 109 U/L (46-116); ALT (SGPT) 16 U/L (10-68); BILIRUBIN - TOTAL 0.33 mg/dL (0.2-1.3); CALC OSMOLALITY 281 mosm/kg (275-300); CALCIUM 8.6 mg/dL (8.5-10.1); CARBON DIOXIDE 29.5 mmol/L (21.0-32.0); CHLORIDE - SERUM 103 mmol/L (98-107); CREATININE - SERUM 0.9 mg/dL (0.6-1.3); GLUCOSE 108 mg/dL (74-106); POTASSIUM - SERUM 4.4 mmol/L (3.5-5.1); PROTEIN - SERUM 7.5 g/dL (6.4-8.2); SODIUM 139 mmol/L (136-145); UREA NITROGEN 20 mg/dL (7-18); eGFR NON AFRICAN AMERICAN 64 mL/min (90-120)
[2017-03-24 21:20] LABS: PLATELET COUNT 319 10x3/uL (130-400)
[2017-03-24 21:32] LABS: CHOL - HDL RATIO 3.3 ratio (2.3-4.1); CHOLESTEROL, TOTAL 151 mg/dL (0-200); CKMB 1.2 U/L (0.0-3.6); CREATINE KINASE 50 UL (21-215); HDL CHOLESTEROL 46 mg/dL (32-96); LDL CHOLESTEROL 78 mg/dL (0-100); LDL-HDL RATIO 1.7 ratio (1.5-3.5); PRO BNP 700 pg/mL (0-450); TRIGLYCERIDE 138 mg/dL (30-200)
[2017-03-24 21:39] LABS: TROPONIN-I 0.212 ng/mL (0.000-0.060)
[2017-03-25] VITALS (7 sets, daily range): BP systolic 110–138; BP diastolic 54–75; Ht 154.9 cm; Wt 85.5 kg
[2017-03-25] MEDS ORDERED: K-TAB10 MEQ PO (00:37)
[2017-03-25] MEDS ORDERED: ULTRAM50 MG PO (00:37)
[2017-03-25] MEDS ORDERED: VOLTAREN100 GM TOPICAL (00:37)
[2017-03-25] MEDS ORDERED: GABAPENTIN100 MG PO (00:39)
[2017-03-25] MEDS ORDERED: FLUTICASONE PRO16 GM NASAL (00:39)
[2017-03-25 09:36] LABS: ANION GAP 8.6 mmol/L (8-16); CALCIUM 8.6 mg/dL (8.5-10.1); CARBON DIOXIDE 30.9 mmol/L (21.0-32.0); POTASSIUM - SERUM 4.5 mmol/L (3.5-5.1)
[2017-03-25 09:45] LABS: BASOPHILS 0.9 % (0-2); HEMATOCRIT 36.5 % (36.0-48.0); HEMOGLOBIN 11.2 g/dL (12-16); IMMATURE GRANULOCYTES 0.2 % (0-5); LYMPHOCYTES 25.3 % (15-50); MCH 27.9 pg (26.0-34.0); MCHC 30.7 g/dL (31.0-37.0); MCV 90.8 fL (80.0-100.0); MEAN PLATELET VOLUME 9.2 fL (7.4-10.4); MONOCYTES 11.9 % (2-11); NEUTROPHILS 56.7 % (40-80); PLATELET COUNT 329 10x3/uL (130-400); RBC 4.02 10x6/uL (4.00-5.40); RDW 15.7 % (11.5-14.5); WBC 6.7 10x3/uL (4.8-10.8)
[2017-03-25 11:01] LABS: INR 2.82 (0.85-1.17)
[2017-03-26 00:48] VITALS: BP 138/59
[2017-03-26 04:21] VITALS: BP 100/58
[2017-03-26 06:11] LABS: BASOPHILS 0.6 % (0-2); EOSINOPHILS 4.6 % (0-7); HEMATOCRIT 35.5 % (36.0-48.0); HEMOGLOBIN 10.9 g/dL (12-16); IMMATURE GRANULOCYTES 0.2 % (0-5); MCH 27.5 pg (26.0-34.0); MCHC 30.7 g/dL (31.0-37.0); MCV 89.6 fL (80.0-100.0); MEAN PLATELET VOLUME 8.8 fL (7.4-10.4); MONOCYTES 14.1 % (2-11); NEUTROPHILS 57.5 % (40-80); PLATELET COUNT 289 10x3/uL (130-400); RBC 3.96 10x6/uL (4.00-5.40); RDW 15.7 % (11.5-14.5); WBC 6.5 10x3/uL (4.8-10.8)
[2017-03-26 06:35] LABS: ALBUMIN 2.5 g/dL (3.4-5.0); ANION GAP 9.2 mmol/L (8-16); BILIRUBIN - TOTAL 0.6 mg/dL (0.2-1.3); CALCIUM 8.4 mg/dL (8.5-10.1); CARBON DIOXIDE 30.1 mmol/L (21.0-32.0); CREATININE - SERUM 0.8 mg/dL (0.6-1.3); POTASSIUM - SERUM 4.3 mmol/L (3.5-5.1); PROTEIN - SERUM 6.6 g/dL (6.4-8.2)
[2017-03-26 07:57] VITALS: BP 143/68
[2017-03-26 08:15] LABS: INR 1.72 (0.85-1.17); PROTIME 19.6 SECONDS (11.6-15.0)
[2017-03-26 11:45] VITALS: BP 122/51
[2017-03-26 16:00] VITALS: BP 126/62
[2017-03-26 22:38] VITALS: BP 135/54
[2017-03-27 03:54] VITALS: BP 139/61
[2017-03-27 06:17] LABS: BASOPHILS 0.5 % (0-2); EOSINOPHILS 4.2 % (0-7); HEMATOCRIT 33.8 % (36.0-48.0); HEMOGLOBIN 10.4 g/dL (12-16); LYMPHOCYTES 25.2 % (15-50); MCH 27.4 pg (26.0-34.0); MCHC 30.8 g/dL (31.0-37.0); MCV 89.2 fL (80.0-100.0); MONOCYTES 15.2 % (2-11); NEUTROPHILS 54.9 % (40-80); PLATELET COUNT 307 10x3/uL (130-400); RBC 3.79 10x6/uL (4.00-5.40); RDW 15.7 % (11.5-14.5); WBC 6.7 10x3/uL (4.8-10.8)
[2017-03-27 06:48] LABS: ALBUMIN 2.5 g/dL (3.4-5.0); ANION GAP 7.8 mmol/L (8-16); BILIRUBIN - TOTAL 0.49 mg/dL (0.2-1.3); CALCIUM 8.6 mg/dL (8.5-10.1); CARBON DIOXIDE 31.3 mmol/L (21.0-32.0); CREATININE - SERUM 0.8 mg/dL (0.6-1.3); POTASSIUM - SERUM 4.1 mmol/L (3.5-5.1); PROTEIN - SERUM 6.6 g/dL (6.4-8.2)
[2017-03-27 07:33] LABS: INR 1.23 (0.85-1.17); PROTIME 15.1 SECONDS (11.6-15.0)
[2017-03-27 07:48] VITALS: BP 135/66
== END 2017-03-27 15:46 | disposition home health service (06) | DRG 251 ==
LOC: D.ER 20:34 → D.M2 22:26 → OBSVTIME 22:26 → D.M2 22:26
PROVIDERS: Family Medicine; Internal Medicine Cardiovascular Disease
PROC: B2111ZZ Fluoroscopy of Multiple Coronary Arteries using Low Osmolar Contrast (ICD-10-PCS; 2017-03-27)
PROC: B2151ZZ Fluoroscopy of Left Heart using Low Osmolar Contrast (ICD-10-PCS; 2017-03-27)
PROC: 02713ZZ Dilation of Coronary Artery, Two Arteries, Percutaneous Approach (ICD-10-PCS; principal; 2017-03-27 10:30)
PROC: 4A023N7 Measurement of Cardiac Sampling and Pressure, Left Heart, Percutaneous Approach (ICD-10-PCS; 2017-03-27 10:30)
DX: I21.4 Non-ST elevation (NSTEMI) myocardial infarction (principal); I25.10 Atherosclerotic heart disease of native coronary artery without angina pectoris; Z98.61 Coronary angioplasty status; I10 Essential (primary) hypertension

== ENCOUNTER 2017-04-03 21:18 | Inpatient (IN) | payer MEDICARE, OTHER ==
[~2017-04-03] VITALS: Ht 156.2 cm; Wt 85.0 kg
--- NOTE | ~2017-04-03 | CN ---
PATIENT NAME:VINAY SYED MEDICAL RECORD: [id number] : 39 LOCATION:[facility] ADMIT DATE: 04/04/17 ACCOUNT: [id number] CONSULTING PHYSICIAN: DEION MONSIVAIS MD REFERRING PHYSICIAN: HALINA HANKINS MD DATE OF CONSULTATION: 04/05/2017 HISTORY OF PRESENT ILLNESS: A 81-year-old female with history of coronary artery disease, status post PTCA to the diagonal approximately 2 weeks ago, admitted with shoulder pain. This is atypical for angina, worse with movement, not pleuritic in nature. She has been found to have calcific tendinitis. Enzymes are negative. ECG without acute changes. We are asked to see her concerning her cardiovascular status. PAST MEDICAL HISTORY: Includes; 1. History of coronary artery disease. 2. Hypertension. 3. Hyperlipidemia. 4. Osteoarthritis. 5. Gastroesophageal reflux disease. ALLERGIES: CODEINE and HYDROCODONE. MEDICATIONS: Typically include Plavix 75 every day, iron supplementation, warfarin per scale, Coreg 6.25 b.i.d., valsartan 320 at bedtime, amlodipine 5 every day, aspirin 81 every day, Cymbalta 60 every day, lorazepam 0.5 q.6 as needed, trazodone 50 mg q.8 as needed, and Protonix 40 every day. SOCIAL HISTORY: , lives in [place]. Nonsmoker. Does try to exercise on a regular basis. REVIEW OF SYSTEMS: The patient reports easy bruising but reports no swollen glands. The patient reports no fever, no night sweats, no significant weight gain, no significant weight loss. No significant exercise tolerance. The patient reports no dry eyes, no irritation, no vision change. Patient reports no difficulty hearing and no ear pain. Patient reports no frequent nose bleeds or nose and sinus problems. Patient reports on arm pain on exertion. No shortness of breath while lying down. No history of heart murmur. Patient reports no cough, no wheezing or coughing up blood. Patient reports no abdominal pain, no vomiting. Normal appetite. No diarrhea and not vomiting blood. No nausea and no constipation. Patient reports no incontinence. No difficulty urinating. No hematuria. No increased frequency. Patient reports no muscle aches. No weakness, no arthralgias, no back pain. No swelling of the extremities. Patient reports no abnormal mole, no jaundice, no rashes. Reports no loss of consciousness. No weakness and no numbness. No seizures, dizziness, or headaches. The patient reports no depression, no sleep disturbance, feeling safe in a relationship and no alcohol abuse. Patient reports on fatigue. Reports no runny nose or sinus pressure. No itching, no hives, and no frequent sneezing. PHYSICAL EXAMINATION: GENERAL: Pleasant female in no acute distress. VITAL SIGNS: Blood pressure 131/58, pulse is 88 and regular. HEENT: Normocephalic, atraumatic. NECK: No JVD or bruit. CONSULT REPORT [id number] VINAY SYED HEART: Regular. LUNGS: Means clear. ABDOMEN: Soft, nontender. EXTREMITIES: Pulses well preserved, 2+. No edema. NEUROLOGIC: Grossly intact. IMPRESSION: Somewhat atypical for coronary artery disease. Agree with current management. Nothing to add from cardiovascular standpoint. TRANSINT:[id number] Voice Confirmation ID: [id number] DOCUMENT ID: [id number] DEION MONSIVAIS MD at 1129 CC: [id number] DICTATION DATE: 04/05/17 1246 VP ORGANIZATIONAL DEVELOPMENT: 04/05/17 1438 DIS IN 04/05/17 [facility] [address] [place] [address]
[~2017-04-03 21:18] MED LIST changes: +FLUTICASONE PRO16 GM NASAL; +GABAPENTIN100 MG PO; +K-TAB10 MEQ PO; +VOLTAREN100 GM TOPICAL
[2017-04-03 22:55] LABS: BASOPHILS 0.8 % (0-2); EOSINOPHILS 5.7 % (0-7); HEMATOCRIT 34.9 % (36.0-48.0); HEMOGLOBIN 10.9 g/dL (12-16); IMMATURE GRANULOCYTES 0.3 % (0-5); LYMPHOCYTES 24.7 % (15-50); MCH 27.7 pg (26.0-34.0); MCHC 31.2 g/dL (31.0-37.0); MCV 88.8 fL (80.0-100.0); MEAN PLATELET VOLUME 8.8 fL (7.4-10.4); MONOCYTES 12.6 % (2-11); NEUTROPHILS 55.9 % (40-80); PLATELET COUNT 311 10x3/uL (130-400); RBC 3.93 10x6/uL (4.00-5.40); RDW 15.8 % (11.5-14.5); WBC 6.1 10x3/uL (4.8-10.8)
[2017-04-03 23:13] LABS: INR 1.64 (0.85-1.17); PROTIME 18.9 SECONDS (11.6-15.0)
[2017-04-03 23:18] LABS: ALBUMIN 2.9 g/dL (3.4-5.0); ALKALINE PHOSPHATASE 101 U/L (46-116); ALT (SGPT) 11 U/L (10-68); BILIRUBIN - TOTAL 0.25 mg/dL (0.2-1.3); CALC OSMOLALITY 285 mosm/kg (275-300); CALCIUM 8.7 mg/dL (8.5-10.1); CARBON DIOXIDE 27.8 mmol/L (21.0-32.0); CHLORIDE - SERUM 106 mmol/L (98-107); CREATININE - SERUM 0.9 mg/dL (0.6-1.3); GLUCOSE 121 mg/dL (74-106); POTASSIUM - SERUM 4.5 mmol/L (3.5-5.1); PROTEIN - SERUM 7.1 g/dL (6.4-8.2); SODIUM 141 mmol/L (136-145); UREA NITROGEN 23 mg/dL (7-18); eGFR NON AFRICAN AMERICAN 64 mL/min (90-120)
[2017-04-03 23:31] LABS: AMYLASE - SERUM 16 U/L (25-115); CKMB 1.5 U/L (0.0-3.6); CREATINE KINASE 45 UL (21-215); PRO BNP 768 pg/mL (0-450)
[2017-04-03 23:35] LABS: TROPONIN-I < 0.017 ng/mL (0.000-0.060)
[2017-04-04 05:56] VITALS: BP 141/66; BMI 34.8
[2017-04-04 06:28] LABS: ALBUMIN 3.1 g/dL (3.4-5.0); ALKALINE PHOSPHATASE 100 U/L (46-116); ALT (SGPT) 13 U/L (10-68); BILIRUBIN - TOTAL 0.32 mg/dL (0.2-1.3); CALC OSMOLALITY 280 mosm/kg (275-300); CARBON DIOXIDE 28.5 mmol/L (21.0-32.0); CHLORIDE - SERUM 104 mmol/L (98-107); CREATININE - SERUM 0.8 mg/dL (0.6-1.3); GLUCOSE 87 mg/dL (74-106); POTASSIUM - SERUM 4.4 mmol/L (3.5-5.1); PRO BNP 814 pg/mL (0-450); PROTEIN - SERUM 6.8 g/dL (6.4-8.2); SODIUM 140 mmol/L (136-145); UREA NITROGEN 21 mg/dL (7-18); eGFR NON AFRICAN AMERICAN 73 mL/min (90-120)
[2017-04-04 06:30] LABS: CREATINE KINASE 231 UL (21-215); TROPONIN-I < 0.017 ng/mL (0.000-0.060)
[2017-04-04 08:17] VITALS: BP 142/62
[2017-04-04 12:45] VITALS: BP 141/76
[2017-04-04 12:51] VITALS: Ht 156.2 cm; Wt 85.0 kg
[2017-04-04 16:51] VITALS: BP 108/58
[2017-04-04 17:28] LABS: APPEARANCE CLEAR (CLEAR); BILIRUBIN NEGATIVE (NEGATIVE); COLOR YELLOW (YELLOW); GLUCOSE NEGATIVE (NEGATIVE); KETONE NEGATIVE (NEGATIVE); NITRITE NEGATIVE (NEGATIVE); PROTEIN NEGATIVE (NEGATIVE); SPECIFIC GRAVITY 1.015 (1.005-1.020); UROBILINOGEN NORMAL (NORMAL)
[2017-04-04 20:00] VITALS: BP 154/74
[2017-04-05 04:46] LABS: BASOPHILS 0.8 % (0-2); EOSINOPHILS 4.4 % (0-7); HEMATOCRIT 36.2 % (36.0-48.0); HEMOGLOBIN 11.3 g/dL (12-16); IMMATURE GRANULOCYTES 0.2 % (0-5); LYMPHOCYTES 29.4 % (15-50); MCH 27.4 pg (26.0-34.0); MCHC 31.2 g/dL (31.0-37.0); MCV 87.9 fL (80.0-100.0); MEAN PLATELET VOLUME 9.1 fL (7.4-10.4); MONOCYTES 14.7 % (2-11); NEUTROPHILS 50.5 % (40-80); PLATELET COUNT 332 10x3/uL (130-400); RBC 4.12 10x6/uL (4.00-5.40); RDW 15.9 % (11.5-14.5); WBC 5.9 10x3/uL (4.8-10.8)
[2017-04-05 04:57] LABS: ANION GAP 10.6 mmol/L (8-16); CALCIUM 8.9 mg/dL (8.5-10.1); CARBON DIOXIDE 30.3 mmol/L (21.0-32.0); CREATININE - SERUM 0.8 mg/dL (0.6-1.3); POTASSIUM - SERUM 3.9 mmol/L (3.5-5.1)
[2017-04-05 08:16] VITALS: BP 153/82
[2017-04-05 12:11] VITALS: BP 131/58
== END 2017-04-05 17:15 | disposition home health service (06) | DRG 74 ==
LOC: D.ER 21:18 → D.MS 04-04 02:53 → OBSVTIME 04-04 02:53 → D.MS 04-04 13:04
PROVIDERS: Family Medicine; Internal Medicine Nephrology; Nurse Practitioner Family
DX: M54.12 Radiculopathy, cervical region (principal); M50.021 Cervical disc disorder at C4-C5 level with myelopathy; M75.32 Calcific tendinitis of left shoulder; I25.10 Atherosclerotic heart disease of native coronary artery without angina pectoris; I10 Essential (primary) hypertension; E78.5 Hyperlipidemia, unspecified; K21.9 Gastro-esophageal reflux disease without esophagitis; K44.9 Diaphragmatic hernia without obstruction or gangrene; D64.9 Anemia, unspecified; Z86.718 Personal history of other venous thrombosis and embolism; Z95.5 Presence of coronary angioplasty implant and graft

== ENCOUNTER → 2017-04-22 19:35 | Outpatient (CLI) | payer MEDICARE, OTHER ==
[2017-04-04 12:51] VITALS: BMI 34.8
[2017-04-22 20:12] LABS: INR 2.66 (0.85-1.17); PROTIME 27.6 SECONDS (11.6-15.0)
== END | disposition home or self-care (01) ==
LOC: D.LABREF 19:35
PROVIDERS: Family Medicine
DX: Z51.81 Encounter for therapeutic drug level monitoring (principal); Z79.01 Long term (current) use of anticoagulants

== ENCOUNTER → 2017-05-06 10:30 | Outpatient (CLI) | payer MEDICARE, OTHER ==
[2017-04-04 12:51] VITALS: BMI 34.8
[2017-05-06 14:39] LABS: INR 3.44 (0.85-1.17); PROTIME 33.9 SECONDS (11.6-15.0)
== END | disposition home or self-care (01) ==
LOC: D.LABREF 10:30
PROVIDERS: Family Medicine
DX: Z51.81 Encounter for therapeutic drug level monitoring (principal); Z79.01 Long term (current) use of anticoagulants

== ENCOUNTER → 2017-05-19 13:20 | Outpatient (CLI) | payer MEDICARE, OTHER ==
[2017-04-04 12:51] VITALS: BMI 34.8
[2017-05-19 16:18] LABS: INR 3.42 (0.85-1.17); PROTIME 33.7 SECONDS (11.6-15.0)
== END | disposition home or self-care (01) ==
LOC: D.LABREF 13:20
PROVIDERS: Family Medicine
DX: Z51.81 Encounter for therapeutic drug level monitoring (principal); Z79.01 Long term (current) use of anticoagulants

== ENCOUNTER → 2017-05-28 13:02 | Outpatient (CLI) | payer MEDICARE, OTHER ==
[2017-04-04 12:51] VITALS: BMI 34.8
[~2017-05-28 13:02] MED LIST changes: +CARAFATE1 G/10 ML PO
[2017-05-28 13:18] LABS: BASOPHILS 1.6 % (0-2); EOSINOPHILS 4.9 % (0-7); HEMATOCRIT 32.5 % (36.0-48.0); HEMOGLOBIN 9.9 g/dL (12-16); IMMATURE GRANULOCYTES 0.2 % (0-5); LYMPHOCYTES 26.5 % (15-50); MCH 26.1 pg (26.0-34.0); MCHC 30.5 g/dL (31.0-37.0); MCV 85.5 fL (80.0-100.0); MONOCYTES 11.1 % (2-11); NEUTROPHILS 55.7 % (40-80); PLATELET COUNT 341 10x3/uL (130-400); WBC 4.9 10x3/uL (4.8-10.8)
[2017-05-28 13:33] LABS: INR 3.52 (0.85-1.17); PROTIME 34.5 SECONDS (11.6-15.0)
== END | disposition home or self-care (01) ==
LOC: D.LABREF 13:02
PROVIDERS: Internal Medicine Cardiovascular Disease
DX: I48.91 Unspecified atrial fibrillation (principal); Z51.81 Encounter for therapeutic drug level monitoring; Z79.01 Long term (current) use of anticoagulants

== ENCOUNTER → 2017-06-02 12:41 | Outpatient (CLI) | payer MEDICARE, OTHER ==
[2017-04-04 12:51] VITALS: BMI 34.8
[2017-06-02 14:12] LABS: INR 2.08 (0.85-1.17); PROTIME 22.8 SECONDS (11.6-15.0)
== END | disposition home or self-care (01) ==
LOC: D.LABREF 12:41
PROVIDERS: Family Medicine
DX: Z51.81 Encounter for therapeutic drug level monitoring (principal); Z79.01 Long term (current) use of anticoagulants

== ENCOUNTER → 2017-06-11 14:13 | Outpatient (CLI) | payer MEDICARE, OTHER ==
[2017-04-04 12:51] VITALS: BMI 34.8
[2017-06-11 14:36] LABS: INR 1.76 (0.85-1.17)
== END | disposition home or self-care (01) ==
LOC: D.LABREF 14:13
PROVIDERS: Family Medicine
DX: Z51.81 Encounter for therapeutic drug level monitoring (principal); Z79.01 Long term (current) use of anticoagulants; I25.10 Atherosclerotic heart disease of native coronary artery without angina pectoris

== ENCOUNTER → 2017-06-18 16:03 | Outpatient (CLI) | payer MEDICARE, OTHER ==
[2017-04-04 12:51] VITALS: BMI 34.8
[2017-06-18 17:15] LABS: PROTIME 12.8 SECONDS (11.6-15.0)
== END | disposition home or self-care (01) ==
LOC: D.LABREF 16:03
PROVIDERS: Family Medicine
DX: Z51.81 Encounter for therapeutic drug level monitoring (principal); Z79.01 Long term (current) use of anticoagulants; Z86.718 Personal history of other venous thrombosis and embolism

== ENCOUNTER 2017-07-16 13:15 | Inpatient (IN) | payer MEDICARE, OTHER ==
[~2017-07-16] VITALS: Ht 156.2 cm; Wt 91.3 kg
[~2017-07-16 13:15] MED LIST changes: -CARAFATE1 G/10 ML PO
[2017-07-16 14:36] LABS: BASOPHILS 2.5 % (0-2); EOSINOPHILS 4.7 % (0-7); HEMATOCRIT 25.6 % (36.0-48.0); IMMATURE GRANULOCYTES 0.3 % (0-5); LYMPHOCYTES 22.6 % (15-50); MCH 22.4 pg (26.0-34.0); MCHC 28.5 g/dL (31.0-37.0); MCV 78.5 fL (80.0-100.0); MEAN PLATELET VOLUME 9.1 fL (7.4-10.4); NEUTROPHILS 55.9 % (40-80); PLATELET COUNT 321 10x3/uL (130-400); RBC 3.26 10x6/uL (4.00-5.40); RDW 17.3 % (11.5-14.5); WBC 5.9 10x3/uL (4.8-10.8)
[2017-07-16 14:41] LABS: HEMOGLOBIN 7.3 g/dL (12-16)
[2017-07-16 15:03] LABS: ALBUMIN 2.8 g/dL (3.4-5.0); ALKALINE PHOSPHATASE 80 U/L (46-116); ALT (SGPT) 9 U/L (10-68); BILIRUBIN - TOTAL 0.47 mg/dL (0.2-1.3); CALC OSMOLALITY 275 mosm/kg (275-300); CALCIUM 8.4 mg/dL (8.5-10.1); CARBON DIOXIDE 26.7 mmol/L (21.0-32.0); CHLORIDE - SERUM 104 mmol/L (98-107); CREATININE - SERUM 1.1 mg/dL (0.6-1.3); GLUCOSE 91 mg/dL (74-106); POTASSIUM - SERUM 4.7 mmol/L (3.5-5.1); PROTEIN - SERUM 6.9 g/dL (6.4-8.2); SODIUM 137 mmol/L (136-145); UREA NITROGEN 19 mg/dL (7-18); eGFR NON AFRICAN AMERICAN 51 mL/min (90-120)
[2017-07-16 15:12] LABS: CKMB 0.9 U/L (0.0-3.6); CREATINE KINASE 32 UL (21-215); PRO BNP 350 pg/mL (0-450)
[2017-07-16 15:14] LABS: TROPONIN-I < 0.017 ng/mL (0.000-0.060)
[2017-07-16 16:25] LABS: % SATURATION 4 % (15-55); IRON 16 ug/dl (35-150); TOTAL IRON BIND CAPACITY 396 ug/dl (260-445); UNSAT IRON BIND CAPACITY 380 ug/dl (150-375)
[2017-07-16 16:37] LABS: INR 1.06 (0.85-1.17); PROTIME 13.4 SECONDS (11.6-15.0)
[2017-07-16 16:39] LABS: APTT 29.1 SECONDS (22.8-39.4)
[2017-07-16 16:40] LABS: D-DIMER-QUANTITATIVE 0.56 ug/mLFEU (0.20-0.54)
[2017-07-16 17:49] LABS: CKMB 0.8 U/L (0.0-3.6); CREATINE KINASE 32 UL (21-215); PRO BNP 358 pg/mL (0-450)
[2017-07-16 17:55] LABS: TROPONIN-I < 0.017 ng/mL (0.000-0.060)
[2017-07-16 18:20] LABS: % SATURATION 4 % (15-55); IRON 16 ug/dl (35-150); TOTAL IRON BIND CAPACITY 373 ug/dl (260-445); UNSAT IRON BIND CAPACITY 357 ug/dl (150-375)
[2017-07-16 18:35] LABS: FERRITIN 9 ng/mL (3-244); LDH 156 U/L (81-234)
[2017-07-16 19:00] VITALS: BP 141/69
[2017-07-16 23:44] VITALS: Ht 156.2 cm; Wt 91.3 kg
[2017-07-16 23:54] LABS: CKMB 0.9 U/L (0.0-3.6); CREATINE KINASE 34 UL (21-215); TROPONIN-I < 0.017 ng/mL (0.000-0.060)
[2017-07-17 04:00] VITALS: BP 143/61
[2017-07-17 06:10] LABS: BASOPHILS 1.3 % (0-2); EOSINOPHILS 4.3 % (0-7); IMMATURE GRANULOCYTES 0.1 % (0-5); LYMPHOCYTES 21.7 % (15-50); MCH 24.3 pg (26.0-34.0); MCHC 30.5 g/dL (31.0-37.0); MCV 79.9 fL (80.0-100.0); MEAN PLATELET VOLUME 9.5 fL (7.4-10.4); NEUTROPHILS 58.6 % (40-80); PLATELET COUNT 286 10x3/uL (130-400); WBC 6.9 10x3/uL (4.8-10.8)
[2017-07-17 06:16] LABS: HEMATOCRIT 32.5 % (36.0-48.0); HEMOGLOBIN 9.9 g/dL (12-16); RBC 4.07 10x6/uL (4.00-5.40)
[2017-07-17 06:38] LABS: ALBUMIN 2.8 g/dL (3.4-5.0); ALKALINE PHOSPHATASE 80 U/L (46-116); ALT (SGPT) 9 U/L (10-68); BILIRUBIN - TOTAL 1.55 mg/dL (0.2-1.3); CALC OSMOLALITY 279 mosm/kg (275-300); CALCIUM 8.3 mg/dL (8.5-10.1); CARBON DIOXIDE 27.6 mmol/L (21.0-32.0); CHLORIDE - SERUM 103 mmol/L (98-107); CKMB 0.7 U/L (0.0-3.6); CREATINE KINASE 24 UL (21-215); GLUCOSE 93 mg/dL (74-106); POTASSIUM - SERUM 4.2 mmol/L (3.5-5.1); PROTEIN - SERUM 6.8 g/dL (6.4-8.2); SODIUM 139 mmol/L (136-145); UREA NITROGEN 17 mg/dL (7-18)
[2017-07-17 06:40] LABS: CREATININE - SERUM 0.8 mg/dL (0.6-1.3); TROPONIN-I < 0.017 ng/mL (0.000-0.060); eGFR NON AFRICAN AMERICAN 73 mL/min (90-120)
[2017-07-17 08:36] VITALS: BP 144/67
[2017-07-17 09:16] LABS: FOLATE (FOLIC ACID) - SERUM >20.0 ng/mL (>3.0)
[2017-07-17 11:52] VITALS: BP 153/74
[2017-07-17 11:59] LABS: APPEARANCE CLEAR (CLEAR); BILIRUBIN NEGATIVE (NEGATIVE); COLOR YELLOW (YELLOW); GLUCOSE NEGATIVE (NEGATIVE); KETONE NEGATIVE (NEGATIVE); NITRITE NEGATIVE (NEGATIVE); PROTEIN NEGATIVE (NEGATIVE); SPECIFIC GRAVITY 1.015 (1.005-1.020); UROBILINOGEN NORMAL (NORMAL)
[2017-07-17 15:40] VITALS: BP 150/72
[2017-07-17 20:00] VITALS: BP 117/63
[2017-07-18] VITALS: BP 143/62
[2017-07-18 05:50] VITALS: BP 149/62
[2017-07-18 06:32] LABS: BASOPHILS 1.8 % (0-2); EOSINOPHILS 4.4 % (0-7); HEMATOCRIT 35.6 % (36.0-48.0); HEMOGLOBIN 10.6 g/dL (12-16); IMMATURE GRANULOCYTES 0.1 % (0-5); LYMPHOCYTES 26.1 % (15-50); MCH 24.1 pg (26.0-34.0); MCHC 29.8 g/dL (31.0-37.0); MCV 80.9 fL (80.0-100.0); MEAN PLATELET VOLUME 9.6 fL (7.4-10.4); MONOCYTES 12.6 % (2-11); PLATELET COUNT 310 10x3/uL (130-400); RDW 17.8 % (11.5-14.5); WBC 6.8 10x3/uL (4.8-10.8)
[2017-07-18 07:14] LABS: ALBUMIN 2.9 g/dL (3.4-5.0); ANION GAP 11.7 mmol/L (8-16); CALCIUM 8.4 mg/dL (8.5-10.1); CREATININE - SERUM 0.9 mg/dL (0.6-1.3); POTASSIUM - SERUM 3.7 mmol/L (3.5-5.1); PROTEIN - SERUM 7.3 g/dL (6.4-8.2)
[2017-07-18 11:23] VITALS: BP 150/58
[2017-07-18 13:18] LABS: SPE - A/G RATIO 1.1 (0.7-1.7); SPE - ALBUMIN 3.2 g/dL (2.9-4.4); SPE - ALPHA-1 GLOBULIN 0.2 g/dL (0.0-0.4); SPE - ALPHA-2 GLOBULIN 0.6 g/dL (0.4-1.0); SPE - GAMMA GLOBULIN 1.2 g/dL (0.4-1.8); SPE - M-SPIKE 0.6 g/dL (Not Observed); SPE - TOTAL PROTEIN 6.2 g/dL (6.0-8.5)
[2017-07-18 15:20] VITALS: BP 140/70
[2017-07-18 19:00] VITALS: BP 143/61
[2017-07-19] VITALS: BP 140/66
[2017-07-19 04:00] VITALS: BP 151/62
[2017-07-19 06:40] LABS: BASOPHILS 1.4 % (0-2); EOSINOPHILS 4.4 % (0-7); HEMATOCRIT 33.4 % (36.0-48.0); IMMATURE GRANULOCYTES 0.1 % (0-5); LYMPHOCYTES 25.7 % (15-50); MCH 24.2 pg (26.0-34.0); MCHC 29.9 g/dL (31.0-37.0); MCV 80.7 fL (80.0-100.0); MEAN PLATELET VOLUME 9.6 fL (7.4-10.4); MONOCYTES 14.5 % (2-11); NEUTROPHILS 53.9 % (40-80); PLATELET COUNT 290 10x3/uL (130-400); RBC 4.14 10x6/uL (4.00-5.40); RDW 18.8 % (11.5-14.5); WBC 7.1 10x3/uL (4.8-10.8)
[2017-07-19 06:58] LABS: ALBUMIN 2.6 g/dL (3.4-5.0); ALKALINE PHOSPHATASE 76 U/L (46-116); ALT (SGPT) 11 U/L (10-68); CALC OSMOLALITY 278 mosm/kg (275-300); CARBON DIOXIDE 26.7 mmol/L (21.0-32.0); CHLORIDE - SERUM 104 mmol/L (98-107); CREATININE - SERUM 0.7 mg/dL (0.6-1.3); GLUCOSE 97 mg/dL (74-106); POTASSIUM - SERUM 3.6 mmol/L (3.5-5.1); PROTEIN - SERUM 6.6 g/dL (6.4-8.2); SODIUM 139 mmol/L (136-145); UREA NITROGEN 14 mg/dL (7-18); eGFR NON AFRICAN AMERICAN 85 mL/min (90-120)
[2017-07-19 08:52] VITALS: BP 131/56
[2017-07-19] MEDS ORDERED: CARAFATE1 G/10 ML PO (11:11)
[2017-07-19 11:35] VITALS: BP 138/63
[2017-07-19 16:21] VITALS: BP 142/67
== END 2017-07-19 17:04 | disposition home or self-care (01) | DRG 812 ==
LOC: D.ER 13:15 → D.M2 16:42 → D.EDHOLD 16:42 → D.M2 18:50
PROVIDERS: Family Medicine; Internal Medicine Gastroenterology; Internal Medicine Hematology & Oncology
PROC: 0DB78ZX Excision of Stomach, Pylorus, Via Natural or Artificial Opening Endoscopic, Diagnostic (ICD-10-PCS; principal; 2017-07-18 07:20)
DX: D50.9 Iron deficiency anemia, unspecified (principal); D68.59 Other primary thrombophilia; I25.10 Atherosclerotic heart disease of native coronary artery without angina pectoris; Z79.01 Long term (current) use of anticoagulants; I50.9 Heart failure, unspecified; F32.9 Major depressive disorder, single episode, unspecified; K20.9 Esophagitis, unspecified; K25.9 Gastric ulcer, unspecified as acute or chronic, without hemorrhage or perforation; K29.80 Duodenitis without bleeding; K44.9 Diaphragmatic hernia without obstruction or gangrene; I11.0 Hypertensive heart disease with heart failure; Z86.718 Personal history of other venous thrombosis and embolism; Z86.711 Personal history of pulmonary embolism; Z95.5 Presence of coronary angioplasty implant and graft

== ENCOUNTER 2017-08-19 10:34 | Emergency (ER) | payer MEDICARE, OTHER ==
[~2017-08-19 10:34] MED LIST changes: +CARAFATE1 G/10 ML PO
[2017-08-19 11:30] LABS: HEMATOCRIT 36.8 % (36.0-48.0); LYMPHOCYTES 15.4 % (15-50); MCH 23.8 pg (26.0-34.0); MCHC 29.9 g/dL (31.0-37.0); MCV 79.5 fL (80.0-100.0); MEAN PLATELET VOLUME 8.3 fL (7.4-10.4); NEUTROPHILS 66.6 % (40-80); PLATELET COUNT 253 10x3/uL (130-400); RBC 4.63 10x6/uL (4.00-5.40); RDW 19.5 % (11.5-14.5); WBC 6.7 10x3/uL (4.8-10.8)
[2017-08-19 11:42] LABS: ALBUMIN 2.6 g/dL (3.4-5.0); ANION GAP 13.1 mmol/L (8-16); BILIRUBIN - TOTAL 0.39 mg/dL (0.2-1.3); CALCIUM 8.2 mg/dL (8.5-10.1); CARBON DIOXIDE 25.4 mmol/L (21.0-32.0); CREATININE - SERUM 0.8 mg/dL (0.6-1.3); POTASSIUM - SERUM 3.5 mmol/L (3.5-5.1); PROTEIN - SERUM 6.8 g/dL (6.4-8.2)
[2017-08-19 12:00] LABS: CREATINE KINASE 24 UL (21-215); PRO BNP 273 pg/mL (0-450); TROPONIN-I < 0.017 ng/mL (0.000-0.060)
== END 2017-08-19 13:32 | disposition home or self-care (01) ==
LOC: D.ER 10:34
PROVIDERS: Family Medicine
DX: J06.9 Acute upper respiratory infection, unspecified (principal); I50.9 Heart failure, unspecified; K21.9 Gastro-esophageal reflux disease without esophagitis; I10 Essential (primary) hypertension

== ENCOUNTER 2017-10-07 13:40 | Emergency (ER) | payer MEDICARE, OTHER ==
[~2017-10-07] VITALS: Ht 156.2 cm; Wt 90.9 kg
[2017-10-07 13:43] VITALS: BP 123/55; Ht 156.2 cm; Wt 90.9 kg
[2017-10-07 14:14] LABS: BASOPHILS 0.8 % (0-2); EOSINOPHILS 3.3 % (0-7); HEMATOCRIT 33.5 % (36.0-48.0); HEMOGLOBIN 9.9 g/dL (12-16); IMMATURE GRANULOCYTES 0.3 % (0-5); LYMPHOCYTES 22.6 % (15-50); MCH 23.5 pg (26.0-34.0); MCHC 29.6 g/dL (31.0-37.0); MCV 79.4 fL (80.0-100.0); MONOCYTES 15.6 % (2-11); NEUTROPHILS 57.4 % (40-80); PLATELET COUNT 301 10x3/uL (130-400); RBC 4.22 10x6/uL (4.00-5.40); RDW 18.6 % (11.5-14.5); WBC 7.7 10x3/uL (4.8-10.8)
[2017-10-07 14:22] LABS: APTT 31.8 SECONDS (22.8-39.4)
[2017-10-07 14:23] LABS: D-DIMER-QUANTITATIVE 0.56 ug/mLFEU (0.20-0.54)
[2017-10-07 14:28] LABS: INR 1.06 (0.85-1.17); PROTIME 13.4 SECONDS (11.6-15.0)
[2017-10-07 14:30] LABS: ALBUMIN 2.8 g/dL (3.4-5.0); ALKALINE PHOSPHATASE 102 U/L (46-116); ALT (SGPT) 14 U/L (10-68); BILIRUBIN - TOTAL 0.46 mg/dL (0.2-1.3); CALC OSMOLALITY 278 mosm/kg (275-300); CALCIUM 8.2 mg/dL (8.5-10.1); CARBON DIOXIDE 27.2 mmol/L (21.0-32.0); CHLORIDE - SERUM 105 mmol/L (98-107); CREATININE - SERUM 0.7 mg/dL (0.6-1.3); GLUCOSE 104 mg/dL (74-106); POTASSIUM - SERUM 3.6 mmol/L (3.5-5.1); PROTEIN - SERUM 7.4 g/dL (6.4-8.2); SODIUM 139 mmol/L (136-145); UREA NITROGEN 15 mg/dL (7-18); eGFR NON AFRICAN AMERICAN 85 mL/min (90-120)
[2017-10-07 14:43] LABS: CREATINE KINASE 29 UL (21-215)
[2017-10-07 14:50] LABS: TROPONIN-I < 0.017 ng/mL (0.000-0.060)
[2017-10-07 15:54] LABS: LIPASE 59 U/L (73-393); PRO BNP 241 pg/mL (0-450)
[2017-10-07 15:55] LABS: TROPONIN-I < 0.017 ng/mL (0.000-0.060)
== END 2017-10-07 17:24 | disposition home or self-care (01) ==
LOC: D.ER 13:40
PROVIDERS: Family Medicine
DX: I10 Essential (primary) hypertension (principal); R07.9 Chest pain, unspecified; K21.9 Gastro-esophageal reflux disease without esophagitis; Z86.718 Personal history of other venous thrombosis and embolism

== ENCOUNTER 2018-01-01 10:24 | Day surgery (SDC) | payer MEDICARE, OTHER ==
[~2018-01-01] VITALS: Ht 156.2 cm; Wt 92.7 kg
--- NOTE | ~2018-01-01 | OP ---
PATIENT NAME: VINAY SYED MEDICAL RECORD: [id number] :39 LOCATION:[facility] ADMISSION DATE: SURGEON: MARINA HINOJOSA MD DATE OF OPERATION: 01/01/2018 PROCEDURE: EGD with biopsy. INTERNET NETWORK SPECIALIST: Marina Hinojosa MD SCOPE: Olympus video gastroscope. MEDICATIONS: Per TIVA. The patient received 190 mg of propofol for this procedure, O2 4 liters. INDICATION FOR THE PROCEDURE: Previous EGD with multiple gastric ulcers in the antral area. Helicobacter pylori negative. Repeat EGD to document healing of ulcers. FINDINGS: Informed consent was given. The patient was made comfortable with the above medications. After reaching an adequate level of sedation by slow IV push, the patient was placed on her left side. The endoscope was then advanced under direct visualization through the posterior pharyngeal area and advanced to the distal esophagus. At the distal esophageal area, only mild inflammation was appreciated. A biopsy was obtained. On entering the stomach, very large hiatal hernia was encountered. The patient had very small ulcerations within this hernia as well as inflammation and erosions. We then advanced the scope to the antral area where the previously documented gastric ulcers were observed. The patient had had some resolution of this problem with residual erosions and a few scattered ulcers remaining. We did see some progress in healing. Multiple biopsies were taken in this area. The hiatal hernia was also noted on retroflexion of the scope. The duodenal bulb to the second portion had fairly normal tissue. The scope was then withdrawn. IMPRESSION: 1. Antral ulcers partially healed. A few ulcers were remaining. The patient mainly has some erythema and erosions. 2. Small ulcerations outlining the large hiatal hernia. 3. Normal duodenum. PLAN: 1. We will continue the Protonix at 40 mg p.o. b.i.d. 2. Carafate slurry 1 g p.o. q.i.d. 3. Repeat EGD in 3 months to fully document healing of the ulcerations. 4. No anti-inflammatory drugs. 5. It is my understanding that the patient has been told she could stop the Plavix and the only anticoagulant medicine she has right now is aspirin 81 mg. TRANSINT:[id number] Voice Confirmation ID: [id number] DOCUMENT ID: [id number] OPERATIVE REPORT [id number] VINAY SYED MARINA HINOJOSA MD at 1304 CC: [facility] [place] [id number] DICTATION DATE: 01/01/18 1259 [employer]ETERANS EMPLOYMENT REPRESENTATIVE: 01/01/18 1320 [facility] [place] 01/01/18 [place] [id number] [place] [address]
[2018-01-01 10:58] LABS: ANION GAP 9.9 mmol/L (8-16); CALCIUM 8.6 mg/dL (8.5-10.1); CARBON DIOXIDE 26.8 mmol/L (21.0-32.0); CREATININE - SERUM 0.9 mg/dL (0.6-1.3); POTASSIUM - SERUM 3.7 mmol/L (3.5-5.1)
[2018-01-01] MEDS ORDERED: ASPIRIN81 MG PO (10:59)
[2018-01-01] MEDS ORDERED: GABAPENTIN100 MG PO (10:59)
[2018-01-01 11:04] LABS: BASOPHILS 2.4 % (0-2); EOSINOPHILS 5.5 % (0-7); HEMATOCRIT 30.4 % (36.0-48.0); HEMOGLOBIN 8.7 g/dL (12-16); LYMPHOCYTES 26.9 % (15-50); MCH 21.2 pg (26.0-34.0); MCHC 28.6 g/dL (31.0-37.0); MCV 74.1 fL (80.0-100.0); MONOCYTES 10.2 % (2-11); PLATELET COUNT 326 10x3/uL (130-400); RDW 16.7 % (11.5-14.5); WBC 5.8 10x3/uL (4.8-10.8)
[2018-01-01 11:08] VITALS: BP 119/53; Ht 156.2 cm; Wt 92.7 kg
== END 2018-01-01 14:10 | disposition home or self-care (01) ==
LOC: D.OPS 10:24
PROVIDERS: Anesthesiology
DX: K29.50 Unspecified chronic gastritis without bleeding (principal); K44.9 Diaphragmatic hernia without obstruction or gangrene; K20.9 Esophagitis, unspecified; Z01.812 Encounter for preprocedural laboratory examination

== ENCOUNTER 2018-06-25 17:33 | Inpatient (IN) | payer MEDICARE, OTHER ==
[~2018-06-25] VITALS: Ht 156.2 cm; Wt 72.6 kg
[2018-06-25] MEDS ORDERED: MECLIZINE HCL25 MG PO (17:43)
[2018-06-25] MEDS ORDERED: TESSALON PERLE100 MG PO (17:44)
[2018-06-25] MEDS ORDERED: NITROSTAT0.4 MG SL (17:44)
[2018-06-25] MEDS ORDERED: POTASSIUM CHLO10 ME1 PO (17:46)
[2018-06-25] MEDS ORDERED: VOLTAREN100 GM TOPICAL (17:47)
[2018-06-25] MEDS ORDERED: ISOSORBIDE MONO10 MG PO (17:47)
[2018-06-25] MEDS ORDERED: MORPHINE SULFAT15 M4 PO (17:47)
[2018-06-25] MEDS ORDERED: FUROSEMIDE20 MG PO (17:48)
[2018-06-25] MEDS ORDERED: INDOCIN25 MG PO (17:48)
--- NOTE | 2018-06-25 18:45 | NUR ---
URINE COLLECTED FROM INDWELLING DOMINGO CATH AND SENT TO LAB
[2018-06-25 18:50] LABS: BASOPHILS 0.5 % (0-2); EOSINOPHILS 6.5 % (0-7); HEMATOCRIT 26.9 % (36.0-48.0); IMMATURE GRANULOCYTES 0.1 % (0-5); LYMPHOCYTES 20.3 % (15-50); MCV 69.7 fL (80.0-100.0); MEAN PLATELET VOLUME 9.2 fL (7.4-10.4); MONOCYTES 10.4 % (2-11); NEUTROPHILS 62.2 % (40-80); PLATELET COUNT 346 10x3/uL (130-400); RBC 3.86 10x6/uL (4.00-5.40); WBC 8.1 10x3/uL (4.8-10.8)
[2018-06-25 19:03] LABS: ALBUMIN 2.7 g/dL (3.4-5.0); ANION GAP 8.4 mmol/L (8-16); BILIRUBIN - TOTAL 0.68 mg/dL (0.2-1.3); CALCIUM 8.5 mg/dL (8.5-10.1); CREATININE - SERUM 1.3 mg/dL (0.6-1.3); POTASSIUM - SERUM 3.4 mmol/L (3.5-5.1); PROTEIN - SERUM 7.2 g/dL (6.4-8.2)
[2018-06-25 19:15] LABS: APPEARANCE CLEAR (CLEAR); BILIRUBIN NEGATIVE (NEGATIVE); COLOR YELLOW (YELLOW); GLUCOSE NEGATIVE (NEGATIVE); KETONE NEGATIVE (NEGATIVE); NITRITE NEGATIVE (NEGATIVE); PROTEIN NEGATIVE (NEGATIVE); UROBILINOGEN NORMAL (NORMAL)
[2018-06-25 19:16] LABS: BACTERIA MODERATE /hpf (NONE SEEN); RED CELLS - URINE 0-5 /hpf (0-5)
[2018-06-25 19:17] LABS: HYALINE CAST OCC /lpf (NONE SEEN)
[2018-06-25 19:18] LABS: MCH 18.1 pg (26.0-34.0)
[2018-06-25 22:05] VITALS: BP 149/52
[2018-06-25 22:20] VITALS: BP 152/57
[2018-06-25 22:30] VITALS: BP 149/52; BMI 29.8
[2018-06-26] VITALS (7 sets, daily range): BP systolic 129–156; BP diastolic 51–67; BMI 29.7
--- NOTE | 2018-06-26 07:30 | NUR ---
PT AWAKE AND CONFUSED. ASKING WHY HER ISN'T HERE YET. INFORMED PT IT WAS STILL VERY EARLY AND PERHAPS HE WAS STILL SLEEPING. NO OTHER QUESTIONS/COMPLAINTS AT THIS TME. CL IN REACH. SRX2.
[2018-06-26 09:58] LABS: ANION GAP 11.7 mmol/L (8-16); POTASSIUM - SERUM 3.7 mmol/L (3.5-5.1)
[2018-06-26 09:59] LABS: CREATININE - SERUM 0.9 mg/dL (0.6-1.3)
[2018-06-26 10:08] LABS: BASOPHILS 0.4 % (0-2); EOSINOPHILS 3.6 % (0-7); HEMATOCRIT 30.3 % (36.0-48.0); IMMATURE GRANULOCYTES 0.2 % (0-5); LYMPHOCYTES 17.4 % (15-50); MCH 21.1 pg (26.0-34.0); MCHC 28.7 g/dL (31.0-37.0); MEAN PLATELET VOLUME 9.3 fL (7.4-10.4); MONOCYTES 10.9 % (2-11); NEUTROPHILS 67.5 % (40-80); PLATELET COUNT 291 10x3/uL (130-400); RBC 4.12 10x6/uL (4.00-5.40); RDW 20.3 % (11.5-14.5); WBC 8.3 10x3/uL (4.8-10.8)
[2018-06-26 10:09] LABS: HEMOGLOBIN 8.7 g/dL (12-16); MCV 73.5 fL (80.0-100.0)
--- NOTE | 2018-06-26 11:22 | NUR ---
PT HAS HAD MOOD SWING. AID AND I WENT IN TO GET HER OFF THE BEDPN SHE HAD NOT YET HIT THE CALL LIGHT. PTS CL WAS PLACED IN HER HANDS WHEN I LEFT. UPON ENTERING CL WAS ON FLOOR AND PT STATED "OH SO YOU FINALLY CAME TO CHECK ON ME. I KNOW YA'LL HAVE BEEN OUT THERE TALKING SHIT. YOU HACE TO CALL ME. DON'T TALK TO ME IN THAT CUTESY VOICE". TREID TO EXPLAIN TO PT SHE NEEDED TO USE HER CL. PT WAS CLEARLY CONFUSED. NO BM NOTED. FAMILY COMING TO VISIT SOON. CL IN REACH. PHONE IN REACH. SRX2.
--- NOTE | 2018-06-26 14:52 | NUR ---
PT PULLED OUT IV. STATED IT WAS ITCHING SO SHE DIDNT WANT IT.
--- NOTE | 2018-06-26 15:45 | NUR ---
IV RESITED 22G RFA, 2 STICKS. N/S BACK AT 60CC/HR
--- NOTE | 2018-06-26 18:44 | NUR ---
PT I/V SL. DAUGHTER AT [facility]. CL IN REACH. SRX2. NO CONCNERNS/COMPLAINTS OTHER THAN WANTING TO LEAVE.
[2018-06-27 04:00] VITALS: BP 142/69
[2018-06-27 06:29] LABS: BASOPHILS 0.6 % (0-2); EOSINOPHILS 2.8 % (0-7); HEMATOCRIT 30.3 % (36.0-48.0); HEMOGLOBIN 8.7 g/dL (12-16); IMMATURE GRANULOCYTES 0.1 % (0-5); LYMPHOCYTES 14.2 % (15-50); MCH 21.2 pg (26.0-34.0); MCHC 28.7 g/dL (31.0-37.0); MCV 73.7 fL (80.0-100.0); MONOCYTES 11.1 % (2-11); NEUTROPHILS 71.2 % (40-80); PLATELET COUNT 280 10x3/uL (130-400); RBC 4.11 10x6/uL (4.00-5.40); RDW 20.7 % (11.5-14.5); WBC 6.8 10x3/uL (4.8-10.8)
[2018-06-27 06:51] LABS: ALBUMIN 2.2 g/dL (3.4-5.0); ALKALINE PHOSPHATASE 86 U/L (46-116); ALT (SGPT) 9 U/L (10-68); BILIRUBIN - TOTAL 0.87 mg/dL (0.2-1.3); CALCIUM 8.1 mg/dL (8.5-10.1); CARBON DIOXIDE 27.6 mmol/L (21.0-32.0); CHLORIDE - SERUM 107 mmol/L (98-107); GLUCOSE 96 mg/dL (74-106); MAGNESIUM - SERUM 1.6 mg/dL (1.8-2.4); POTASSIUM - SERUM 3.3 mmol/L (3.5-5.1); PROTEIN - SERUM 6.3 g/dL (6.4-8.2); SODIUM 144 mmol/L (136-145)
[2018-06-27 06:52] LABS: CALC OSMOLALITY 287 mosm/kg (275-300); CREATININE - SERUM 0.6 mg/dL (0.6-1.3); UREA NITROGEN 15 mg/dL (7-18); eGFR NON AFRICAN AMERICAN > 90 mL/min (90-120)
--- NOTE | 2018-06-27 07:20 | NUR ---
PT IS RESTING IN BED WITH EYES OPEN. RESPIRATIONS ARE EVEN AND UNLABORED. SCDS ARE IN ROOM, BUT PT IS NOT WEARING AT THIS TIME. PT REFUSES SCDS. DOMINGO CATHETER NOTED WITH YELLOW URINE IN COLLECTION BAG AND DRAINING FREELY. TELEMTRY IS ON. SEE ASSESSMENT FOR RATE AND RHYTHM. BED IS IN THE LOWEST POSITION. CALL LIGHT AND BEDSIDE TABLE ARE WITHIN REACH. WILL CONT TO MONITOR.
[2018-06-27 08:03] VITALS: BP 166/74
[2018-06-27 12:05] VITALS: Ht 156.2 cm; Wt 72.6 kg
--- NOTE | 2018-06-27 12:37 | NUR ---
PT REPORTS TIGHTNESS IN CHEST. DENIES CHEST PAIN. REPORTS "I AM JUST HAVING A HARD TIME GETTING A BIG BREATH". PATRICIA TSAI APRN NOTIFIED AND WILL PLACE ORDERS FOR PT. LUNGS SOUNDS ARE CLEAR BILATERALLY WITH DIMINISHED SOUNDS IN THE BASES. PT DENIES PRESENCE OF COUGH AND IS ON ROOM AIR. WILL CONT TO MONITOR.
[2018-06-27 16:23] VITALS: BP 147/69
--- NOTE | 2018-06-27 17:00 | NUR ---
DOMINGO CATHETER REMOVED PER DR HANKINS VERBAL ORDER AND AT PT REQUEST. 10ML REMOVED FROM STABILIZATION BALLOON. 425ML OF CLEAR DARK YELLOW URINE EMPTIED FROM COLLECTION BAG. PT REQUESTS ASSISTANCE TO BATHROOM. PT ASSISTED TO BATHROOM WITH WALKER AND 2 PERSON ASSIST. PT DENIES PRESENCE OF DIZZINESS UPON STANDING BUT HAS UNTABLE GAIT. PT SITTING ON COMMODE AND WILL USE CALL SYSTEM FOR ASSISTANCE POST VOID AND DEFACATION. FAMILY IS IN ROOM.
[2018-06-27 20:00] VITALS: BP 155/71
--- NOTE | 2018-06-27 20:00 | NUR ---
ALERT SITTING UP IN BED, SEE SHIFT ASSESSMENT, CALL LIGHT IN REACH
[2018-06-28] VITALS: BP 150/61
[2018-06-28 03:00] VITALS: BP 147/58
[2018-06-28 05:44] LABS: BASOPHILS 0.6 % (0-2); EOSINOPHILS 3.1 % (0-7); HEMATOCRIT 31.6 % (36.0-48.0); HEMOGLOBIN 9.1 g/dL (12-16); IMMATURE GRANULOCYTES 0.7 % (0-5); LYMPHOCYTES 18.3 % (15-50); MCH 21.3 pg (26.0-34.0); MCHC 28.8 g/dL (31.0-37.0); MEAN PLATELET VOLUME 9.3 fL (7.4-10.4); MONOCYTES 13.3 % (2-11); PLATELET COUNT 302 10x3/uL (130-400); RBC 4.27 10x6/uL (4.00-5.40); RDW 21.9 % (11.5-14.5); WBC 6.8 10x3/uL (4.8-10.8)
[2018-06-28 06:02] LABS: ALBUMIN 2.3 g/dL (3.4-5.0); ALKALINE PHOSPHATASE 89 U/L (46-116); ALT (SGPT) 7 U/L (10-68); BILIRUBIN - TOTAL 0.51 mg/dL (0.2-1.3); CALC OSMOLALITY 283 mosm/kg (275-300); CALCIUM 8.3 mg/dL (8.5-10.1); CARBON DIOXIDE 25.7 mmol/L (21.0-32.0); CHLORIDE - SERUM 107 mmol/L (98-107); CREATININE - SERUM 0.6 mg/dL (0.6-1.3); GLUCOSE 105 mg/dL (74-106); MAGNESIUM - SERUM 1.7 mg/dL (1.8-2.4); POTASSIUM - SERUM 3.5 mmol/L (3.5-5.1); PROTEIN - SERUM 6.5 g/dL (6.4-8.2); SODIUM 143 mmol/L (136-145); eGFR NON AFRICAN AMERICAN > 90 mL/min (90-120)
[2018-06-28 06:05] LABS: UREA NITROGEN 11 mg/dL (7-18)
--- NOTE | 2018-06-28 07:13 | NUR ---
PT IS RESTING IN BED WITH EYES OPEN. RESPIRATIONS ARE EVEN AND UNLABORED. PT REQUESTS ASSISTANCE TO BATHROOM. WALKER IS AVAILABLE. ASSISTANCE TO BATHROOM GIVEN. PT WITH LARGE VOID AND MEDIUM SIZED FORMED BM. PT ASSISSTED BACK TO BED. PT DENIES PRESENCE OF PAIN AND N/V AT THIS TIME. BED IS IN THE LOWEST POSITION. CALL LIGHT AND BEDSIDE TABLE ARE WITHIN REACH. WILL CONT TO MONITOR. ALL FALL PRECAUTIONS ARE IN PLACE.
[2018-06-28 12:25] VITALS: BP 168/68
[2018-06-28 17:10] VITALS: BP 125/56
[2018-06-28 19:55] VITALS: BP 144/68
--- NOTE | 2018-06-28 20:00 | NUR ---
ALERT SITTING UP IN BED SEE SHIFT ASSESSMENT, FAMILY AT BEDSIDE, DENIES NEEDS AT THIS TIME CALL LIGHT IN REACH
[2018-06-29 00:01] VITALS: BP 157/74
[2018-06-29 05:11] VITALS: BP 173/84
[2018-06-29 05:30] LABS: ALBUMIN 2.2 g/dL (3.4-5.0); ALKALINE PHOSPHATASE 85 U/L (46-116); BILIRUBIN - TOTAL 0.48 mg/dL (0.2-1.3); CALCIUM 7.9 mg/dL (8.5-10.1); CARBON DIOXIDE 25.5 mmol/L (21.0-32.0); CHLORIDE - SERUM 108 mmol/L (98-107); CREATININE - SERUM 0.6 mg/dL (0.6-1.3); GLUCOSE 98 mg/dL (74-106); MAGNESIUM - SERUM 1.8 mg/dL (1.8-2.4); POTASSIUM - SERUM 3.7 mmol/L (3.5-5.1); PROTEIN - SERUM 6.1 g/dL (6.4-8.2); SODIUM 141 mmol/L (136-145); eGFR NON AFRICAN AMERICAN > 90 mL/min (90-120)
[2018-06-29 05:31] LABS: ALT (SGPT) 12 U/L (10-68); CALC OSMOLALITY 278 mosm/kg (275-300); UREA NITROGEN 6 mg/dL (7-18)
[2018-06-29 05:38] LABS: BASOPHILS 0.7 % (0-2); EOSINOPHILS 2.7 % (0-7); HEMATOCRIT 30.3 % (36.0-48.0); HEMOGLOBIN 8.8 g/dL (12-16); IMMATURE GRANULOCYTES 0.6 % (0-5); LYMPHOCYTES 19.7 % (15-50); MCH 21.5 pg (26.0-34.0); MCV 73.9 fL (80.0-100.0); MEAN PLATELET VOLUME 9.3 fL (7.4-10.4); MONOCYTES 11.5 % (2-11); NEUTROPHILS 64.8 % (40-80); PLATELET COUNT 302 10x3/uL (130-400)
--- NOTE | 2018-06-29 07:58 | NUR ---
PATIENT ALERT AND ORIENTED X3. LUNGS CLEAR BILATERALLY IN ALL SANTO. HEART SOUNDS HEARD AT S1 AND S2 IN ALL SANTO. BOWEL SOUNDS ACTIVE X4. IV SITES TO LEFT AND RIGHT FOREARM PATENT WITHOUT REDNESS. SKIN INTACT WITHOUT REDNESS. DENIES PAIN. STATES FENTANYL PATCH "MADE EVERYTHING BETTER." CALL LIGHT AND PERSONAL ITEMS IN REACH. BED LOW. DENIES NEEDS. WILL CONTINUE TO MONITOR. .
[2018-06-29 08:44] VITALS: BP 118/73
--- NOTE | 2018-06-29 09:15 | NUR ---
PATIENT ASSISTED TO BATHROOM. LARGE VOID AND MEDIUM FORMED BM NOTED. DRESSED IN PERSONAL BED CLOTHING PER REQUEST. ASSISTED BACK TO BED AND ADJUSTED NECESSARY. DENIES PAIN. DENIES FUTHER NEEDS AT THIS TIME.
--- NOTE | 2018-06-29 12:04 | NUR ---
PATIENT C/O BACK PAIN 10/07. JET INSPECTOR NOTIFIED. NEW ORDER FOR FLEXERIL 5MG TID PRN.
--- NOTE | 2018-06-29 12:33 | NUR ---
ATTEMPTED TO GET FORM SIGNED FOR TLSO BRACE. PATIENT STATED MAY POSSIBLY HAVE BACK SURGERY AND DOES NOT WANT BRACE AT THIS TIME. STATES IF SHE DOES NOT HAVE SURGERY SHE WILL ASK FOR BRACE. CENTRAL SUPPLY NOTIFIED AND BRACE RETURNED.
[2018-06-29 13:15] VITALS: BP 148/73
--- NOTE | 2018-06-29 13:40 | NUR ---
STATES "FEELING BETTER" NOW. DENIES PAIN. DENIES FURTHER NEEDS. DAUGHTER AT BEDSIDE. WILL CONTINUE TO MONITOR.
--- NOTE | 2018-06-29 13:56 | NUR ---
NUTRITION F/U PT TOLERATING REG DIET. 75% INTAKE RECENT MEALS. WILL CONTINUE TO PROVIDE DIET, MONITOR INTAKE. RD FOLLOWING
--- NOTE | 2018-06-29 14:13 | NUR ---
ASSITED PATIENT TO BATHROOM. MEDIUM VOID NOTED. DENIES FURTHER NEEDS. WILL CONTINUE TO MONITOR.
--- NOTE | 2018-06-29 15:49 | NUR ---
MEDICATIONS GIVEN WITHOUT DIFFICULTY. DENIES FURTHER NEEDS AT THIS TIME. WILL CONTINUE TO MONITOR.
[2018-06-29 16:30] VITALS: BP 183/84
--- NOTE | 2018-06-29 18:18 | NUR ---
PATIENT RESTING IN BED. DENIES PAIN. DENIES NEEDS AT THIS TIME
--- NOTE | 2018-06-29 20:00 | NUR ---
A&O X 4. DENIES PAIN WHEN LAYING STILL. SALINE LOCKED IV. MOVED UP IN BED SO PT COULD SIT UP BETTER. SCDs APPLIED. PT VERBALIZED HISTORY OF BLOOD CLOTS AND STATES SHE NEEDS SCDs AT HOME. DENIES FURTHER NEEDS AT THIS MOMENT.
[2018-06-29 21:35] VITALS: BP 147/66
[2018-06-30 01:14] VITALS: BP 148/70
--- NOTE | 2018-06-30 03:26 | NUR ---
I have reviewed this patient and I concur with the Shift Assessment completed by the Licensed Practical Nurse today this shift.
[2018-06-30 04:47] VITALS: BP 146/67
[2018-06-30 05:19] LABS: BASOPHILS 0.6 % (0-2); EOSINOPHILS 2.8 % (0-7); HEMOGLOBIN 8.8 g/dL (12-16); IMMATURE GRANULOCYTES 0.8 % (0-5); LYMPHOCYTES 24.7 % (15-50); MCH 21.4 pg (26.0-34.0); MCHC 28.4 g/dL (31.0-37.0); MCV 75.4 fL (80.0-100.0); MEAN PLATELET VOLUME 9.3 fL (7.4-10.4); MONOCYTES 12.7 % (2-11); NEUTROPHILS 58.4 % (40-80); PLATELET COUNT 300 10x3/uL (130-400); RBC 4.11 10x6/uL (4.00-5.40); RDW 24.4 % (11.5-14.5); WBC 6.5 10x3/uL (4.8-10.8)
[2018-06-30 05:44] LABS: ALBUMIN 2.2 g/dL (3.4-5.0); ANION GAP 14.5 mmol/L (8-16); BILIRUBIN - TOTAL 0.68 mg/dL (0.2-1.3); CALCIUM 7.8 mg/dL (8.5-10.1); CARBON DIOXIDE 24.8 mmol/L (21.0-32.0); MAGNESIUM - SERUM 1.6 mg/dL (1.8-2.4); POTASSIUM - SERUM 3.3 mmol/L (3.5-5.1); PROTEIN - SERUM 6.4 g/dL (6.4-8.2)
[2018-06-30 05:45] LABS: CREATININE - SERUM 0.8 mg/dL (0.6-1.3)
--- NOTE | 2018-06-30 07:45 | NUR ---
PATIENT LYING IN BED ALERT AND ORIENTED X3. LUNGS CLEAR BILATERALLY IN ALL SANTO. HEART SOUNDS S1 AND S2 HEARD IN ALL SANTO. BOWEL SOUNDS ACTIVE X4. STATES NO PROBLEMS WITH BOWEL MOVEMENTS. SKIN INTACT WITHOUT REDNESS. IVS TO LEFT AND RIGHT FOREARMS INTACT AND PATENT WITHOUT REDNESS. DENIES PAIN. STATES "I FEEL MUCH BETTER TODAY." SCDS IN PLACE. CALL LIGHT AND PERSONAL ITEMS IN REACH. DENIES FURTHER NEEDS. WILL CONTINUE TO MONITOR.
--- NOTE | 2018-06-30 08:00 | NUR ---
LYING IN BED,WITHOUT DISTRESS.CALL LIGHT IN REACH
--- NOTE | 2018-06-30 08:11 | NUR ---
MEDICATIONS GIVEN WITHOUT DIFFICULTY. BREAKFAST AT BEDSIDE.
[2018-06-30 08:22] VITALS: BP 171/77
--- NOTE | 2018-06-30 10:40 | NUR ---
PATIENT GIVEN PRN TIZANIDINE FOR BACK PAIN. WILL CONTINUE TO MONITOR
--- NOTE | 2018-06-30 12:53 | NUR ---
PATIENT READJUSTED IN BED PER REQUEST. DAUGHTER AT BEDSIDE.
--- NOTE | 2018-06-30 14:17 | NUR ---
PATIENT RESTING IN BED. DENIES NEEDS AT THIS TIME
--- NOTE | 2018-06-30 14:31 | MORECARE ---
CASE MANAGEMENT DISCHARGE SUMMARY PATIENT: VINAY SYED UNIT: [id number] ADM DATE: 06/26/18 AGE: 82 : 37 SEX: F ROOM/BED: D.2214 AUTHOR: KYE MCCORMICK PHYSICIAN: REFERRING PHYSICIAN: HALINA HANKINS MD DATE OF SERVICE: 06/30/18 Discharge Plan Patient Name: VINAY SYED Facility: [facility]:[place] : 1935 Planned Disposition: Home with Hospice Anticipated Discharge Date: Discharge Date: Expected LOS: Initial Reviewer: [email or web address] Initial Review Date: 06/25/2018 Generated: 06/30/18 3:30 pm Patient Name: VINAY SYED Page [phone] at 1431 All edits/amendments must be made on the electronic document DICTATION DATE: 06/30/18 1430 STUDENT CAREER DEVELOPMENT SPECIALIST: ANN 06/30/18 1430 RPT#: [id number] DC DATE: STATUS: ADM IN [facility] [address] [place] [address] END OF REPORT
--- NOTE | 2018-06-30 14:41 | MORECARE ---
CASE MANAGEMENT DISCHARGE SUMMARY PATIENT: VINAY SYED UNIT: [id number] ADM DATE: 06/26/18 AGE: 82 : 37 SEX: F ROOM/BED: D.2214 AUTHOR: KYE MCCORMICK PHYSICIAN: REFERRING PHYSICIAN: HALINA HANKINS MD DATE OF SERVICE: 06/30/18 Discharge Plan Patient Name: VINAY SYED [facility] [facility] 1935 Planned Disposition: Home with Hospice Anticipated Discharge Date: Discharge Date: Expected LOS: Initial Reviewer: [email or web address] Initial Review Date: 06/25/2018 Generated: 06/30/18 3:41 pm Comments DCP- Discharge Planning Updated by [email or web address]: Marissa Rueda on 06/30/18 1:[address] Patient's plan [facility]. Dr Barber wanted to do a face to face with the patient before they accepted her back. Last DP export: 06/30/18 1:30 pm Patient Name: VINAY SYED Page [phone] at 1441 All edits/amendments must be made on the electronic document DICTATION DATE: 06/30/181440 RADIATION ONCOLOGY THERAPIST: ANN 06/30/18 144 RPT#: [id number] DC DATE: STATUS: ADM IN [facility] [address] [place] [address] END OF REPORT
[2018-06-30 16:34] VITALS: BP 96/63
--- NOTE | 2018-06-30 17:03 | NUR ---
PATIENT RESTING IN BED. MEDICATIONS GIVEN WITHOUT DIFFICULTY. DENIES PAIN. DENIES FURTHER NEEDS. WILL CONTINUE TO MONITOR.
--- NOTE | 2018-06-30 18:46 | NUR ---
PATIENT RESTING IN BED. DENIES PAIN. DENIES NEEDS AT THIS TIME.
[2018-06-30 21:12] VITALS: BP 134/59
--- NOTE | 2018-06-30 23:16 | NUR ---
[facility] WAS IN TO SEE PATIENT ABOUT [facility]MIT. hOSPICE NURSE STATED THAT DR. SORTO DID A FACE TO FACE WITH HER TODAY, AND SHE WAS HERE TO DO THE PAPPER WORK. WENT TO PATIENT ROOM . LEFT A NOTE FOR THIS NURSE STATED THAT MRS RED SAID SHE DID NOT WANT HOSPICE.
[2018-07-01 05:09] VITALS: BP 151/67
[2018-07-01 06:40] LABS: BASOPHILS 0.2 % (0-2); HEMATOCRIT 30.5 % (36.0-48.0); HEMOGLOBIN 8.6 g/dL (12-16); IMMATURE GRANULOCYTES 0.5 % (0-5); LYMPHOCYTES 23.6 % (15-50); MCH 21.6 pg (26.0-34.0); MCHC 28.2 g/dL (31.0-37.0); MCV 76.4 fL (80.0-100.0); MEAN PLATELET VOLUME 9.3 fL (7.4-10.4); MONOCYTES 11.8 % (2-11); NEUTROPHILS 59.9 % (40-80); PLATELET COUNT 277 10x3/uL (130-400); RBC 3.99 10x6/uL (4.00-5.40); RDW 25.1 % (11.5-14.5); WBC 5.7 10x3/uL (4.8-10.8)
[2018-07-01 06:53] LABS: ALBUMIN 2.2 g/dL (3.4-5.0); ANION GAP 11.4 mmol/L (8-16); BILIRUBIN - TOTAL 0.6 mg/dL (0.2-1.3); CARBON DIOXIDE 27.2 mmol/L (21.0-32.0); CREATININE - SERUM 0.8 mg/dL (0.6-1.3); MAGNESIUM - SERUM 1.5 mg/dL (1.8-2.4); POTASSIUM - SERUM 3.6 mmol/L (3.5-5.1); PROTEIN - SERUM 6.1 g/dL (6.4-8.2)
--- NOTE | 2018-07-01 09:01 | NUR ---
PT LYING IN BED EATING BREAKFAST, STATES SHE FEELS BETTER TODAY THAN SHE HAS IN WEEKS. BED IN LOW POSITION CL IN REACH. PT REFUSED HOSPICE LAST NIGHT WHEN HOSPICE NURSE CAME TO TALK TO HER. NO OTHER NEEDS VOICED. CONTINUE WITH PLAN OF CARE
[2018-07-01 09:35] VITALS: BP 123/61
--- NOTE | 2018-07-01 11:13 | MORECARE ---
CASE MANAGEMENT DISCHARGE SUMMARY PATIENT: VINAY SYED UNIT: [id number] ADM DATE: 06/26/18 AGE: 82 : 37 SEX: F ROOM/BED: D.2214 AUTHOR: KYE MCCORMICK PHYSICIAN: REFERRING PHYSICIAN: HALINA HANKINS MD DATE OF SERVICE: 07/01/18 Discharge Plan Patient Name: [facility]INAY SYED [facility] [facility] 1935 Planned Disposition: Home with Hospice Anticipated Discharge Date: Discharge Date: Expected LOS: Initial Reviewer: [email or web address] Initial Review Date: 06/25/2018 Generated: 07/01/18 12:12 pm DCP- Discharge Planning Updated by [email or web address]: Marissa Rueda on 06/30/18 1:[address] Patient's plan [facility]. Dr Barber wanted to do a face to face with the patient before they accepted her back. Coverage Notice Reviewer: [email or web address] Maria Isabel Rueda Notice Issued Date-Time: 07/01/2018 11:00 Notice Type: IM Discharge Notice Notice Delivered To: Patient Relationship to Patient: Resort Housekeeper Name: Delivery Method: HAND - Hand Delivered Yuliana Days: Prior Verbal Notification: Recipient Understood Notice: Yes Recipient Signature: Yes Med Rec Note Co-signed by Attending: Coverage Notice Comment: Reviewer: [email or web address] Maria Isabel Rueda Notice Issued Date-Time: 07/01/2018 11:10 Notice Type: Patient Choice Letter Notice Delivered To: Patient Relationship to Patient: Resort Housekeeper Name: Delivery Method: - Yuliana Days: Prior Verbal Notification: Recipient Understood Notice: Recipient Signature: Yes Med Rec Note Co-signed by Attending: Coverage Notice Comment: [facility]IN WITH [facility] Last DP export: 06/30/18 1:41 pm Patient Name: VINAY SYED Page [phone] at 1113 All edits/amendments must be made on the electronic document DICTATION DATE: 07/01/18 1112 BECK TENDER: ANN 07/01/18 1112 RPT#: [id number] DC DATE: STATUS: ADM IN [facility] [address] [place] [address] END OF REPORT
--- NOTE | 2018-07-01 11:22 | MORECARE ---
CASE MANAGEMENT DISCHARGE SUMMARY PATIENT: VINAY SYED UNIT: [id number] ADM DATE: 06/26/18 AGE: 82 : 37 SEX: F ROOM/BED: D.2214 AUTHOR: KYE MCCORMICK PHYSICIAN: REFERRING PHYSICIAN: HALINA HANKINS MD DATE OF SERVICE: 07/01/18 Discharge Plan Patient Name: VINAY SYED Facility: [facility]:[place] : 1935 Planned Disposition: Home with Hospice Anticipated Discharge Date: Discharge Date: Expected LOS: Initial Reviewer: [email or web address] Initial Review Date: 06/25/2018 Generated: 07/01/18 12:22 pm Comments DCP- Discharge Planning Updated by [email or web address]: Marissa Rueda on 07/01/18 10:[address] Patient Name: VINAY SYED Admission Status: ER Accout number: [id number] Admission Date: 06-26-2018 : 1935 Admission Diagnosis:ANEMIA IN OTHER CHRONIC DISEASES CLASSIFIED ELSEWHERE Attending: HALINA HANKINS Current LOS: 5 Anticipated DC Date: Planned Disposition: Home with Hospice Primary Insurance: MEDICARE A & B Discharge Planning Comments: CM met with patient to complete initial dc planning assessment. CM educated patient on the CM role and verbal consent given by patient to complete assessment. Patient lives at home with her and her adult daughter, Lora. At discharge patient plans to return home, but would like to have [facility]. TEVIN signed and placed in chart and feels this is a safe discharge. CM discussed availability of rehab services, but she did not think she could do inpatient rehab due to her pain. Patient was with [facility], but does not want to go back on hospice. She has a Nebulizer, home O2, walker, shower chair, TLSO brace, and electric wheelchair. IMM served and explained. Lora will be the one to drive her home at [place]. CM will continue to follow and will assist as needed with dc plans/needs. Distributor Sales Consultant: Marissa Rueda DCP- Discharge Planning Updated by [email or web address]: Marissa Rueda on 06/30/18 1:[address] Patient's plan [facility]. Dr Barber wanted to do a face to face with the patient before they accepted her back. DCPIA - Discharge Planning Initial Assessment Updated by [id number]: Marissa Rueda on 07/01/18 11:14 am * Is the patient Alert and Oriented? Yes * How many steps to enter\exit or inside your home? * PCP NONE [facility] * [facility] * Preadmission Environment Home with Family * ADLs Partial Dependent * Partial ADLs (Assistance needed) Ambulation Bathing Medication Management * Equipment Back Brace Nebulizer Oxygen Power Chair or Electric Scooter Rolling Walker Shower Chair * List name and contact numbers for known caregivers / representatives who currently or will assist patient after discharge: LORA (DAUGHTER) [phone] * Verbal permission to speak to the caregivers and representatives has been obtained from the patient. Yes * Community resources currently utilized Hospice Home * Please name any agencies selected above. WAS [facility] * Additional services required to return to the preadmission environment? Yes * Can the patient safely return to the preadmission environment? Yes * Has this patient been hospitalized within the prior 30 days at any hospital? No Coverage Notice Reviewer: [email or web address] Maria Isabel Rueda Notice Issued Date-Time: 07/01/2018 11:00 Notice Type: IM Discharge Notice Notice Delivered To: Patient Relationship to Patient: Corrugator Operator Helper Name: Delivery Method: HAND - Hand Delivered Yuliana Days: Prior Verbal Notification: Recipient Understood Notice: Yes Recipient Signature: Yes Med Rec Note Co-signed by Attending: Coverage Notice Comment: Reviewer: [id number] - Mraissa Rueda Notice Issued Date-Time: 07/01/2018 11:10 Notice Type: Patient Choice Letter Notice Delivered To: Patient Relationship to Patient: Corrugator Operator Helper Name: Delivery Method: - Yuliana Days: Prior Verbal Notification: Recipient Understood Notice: Recipient Signature: Yes Med Rec Note Co-signed by Attending: Coverage Notice Comment: [facility] Last DP export: 07/01/18 10:12 am Patient Name: VINAY SYED Page [phone] at 1122 All edits/amendments must be made on the electronic document DICTATION DATE: 07/01/18 1121 LOSS PREVENTION SUPERVISOR: ANN 07/01/18 1121 RPT#: [id number] DC DATE: STATUS: ADM IN [facility] [address] [place] [address] END OF REPORT
--- NOTE | 2018-07-01 11:33 | MORECARE ---
CASE MANAGEMENT DISCHARGE SUMMARY PATIENT: VINAY SYED UNIT: [id number] ADM DATE: 06/26/18 AGE: 82 : 37 SEX: F ROOM/BED: D.2214 AUTHOR: KYE MCCORMICK PHYSICIAN: REFERRING PHYSICIAN: HALINA HANKINS MD DATE OF SERVICE: 07/01/18 Discharge Plan Patient Name: VINAY SYED Facility: [facility]:[place] : 1935 Planned Disposition: Home with Hospice Anticipated Discharge Date: Discharge Date: Expected LOS: Initial Reviewer: [email or web address] Initial Review Date: 06/25/2018 Generated: 07/01/18 12:33 pm Comments DCP- Discharge Planning Updated by [email or web address]: Marissa Rueda on 07/01/18 10:[address] Patient Name: VINAY SYED Admission Status: ER Accout number: [id number] Admission Date: 06-26-2018 : 1935 Admission Diagnosis:ANEMIA IN OTHER CHRONIC DISEASES CLASSIFIED ELSEWHERE Attending: HALINA HANKINS Current LOS: 5 Anticipated DC Date: Planned Disposition: Home with Hospice Primary Insurance: MEDICARE A & B Discharge Planning Comments: CM met with patient to complete initial dc planning assessment. CM educated patient on the CM role and verbal consent given by patient to complete assessment. Patient lives at home with her and her adult daughter, Lora. At discharge patient plans to return home, but would like to have [facility]. TEVIN signed and placed in chart and feels this is a safe discharge. CM discussed availability of rehab services, but she did not think she could do inpatient rehab due to her pain. Patient was with [facility], but does not want to go back on hospice. She has a Nebulizer, home O2, walker, shower chair, TLSO brace, and electric wheelchair. IMM served and explained. Lora will be the one to drive her home at [place]. CM will continue to follow and will assist as needed with dc plans/needs. Advertising Layout Worker: Marissa Rueda DCP- Discharge Planning Updated by [id number]: Marissa Rueda on 06/30/18 1:[address] Patient's plan [facility]. Dr Barber wanted to do a face to face with the patient before they accepted her back. DCPIA - Discharge Planning Initial Assessment Updated by [email or web address]: Marissa Rueda on 07/01/18 11:14 am * Is the patient Alert and Oriented? Yes * How many steps to enter\exit or inside your home? * PCP NONE [facility] * [facility] * Preadmission Environment Home with Family * ADLs Partial Dependent * Partial ADLs (Assistance needed) Ambulation Bathing Medication Management * Equipment Back Brace Nebulizer Oxygen Power Chair or Electric Scooter Rolling Walker Shower Chair * List name and contact numbers for known caregivers / representatives who currently or will assist patient after discharge: LORA (DAUGHTER) [phone] * Verbal permission to speak to the caregivers and representatives has been obtained from the patient. Yes * Community resources currently utilized Hospice Home * Please name any agencies selected above. [facility] * Additional services required to return to the preadmission environment? Yes * Can the patient safely return to the preadmission environment? Yes * Has this patient been hospitalized within the prior 30 days at any hospital? No External Providers [facility] Next Contact Date: Service Request Date: Service Type: Resolution: Reviewer: Comments: Coverage Notice Reviewer: [id number] Maria Isabel Rueda Notice Issued Date-Time: 07/01/2018 11:00 Notice Type: IM Discharge Notice Notice Delivered To: Patient Relationship to Patient: Flask Cleaner Name: Delivery Method: HAND - Hand Delivered Yuliana Days: Prior Verbal Notification: Recipient Understood Notice: Yes Recipient Signature: Yes Med Rec Note Co-signed by Attending: Coverage Notice Comment: Reviewer: [id number] Maria Isabel Rueda Notice Issued Date-Time: 07/01/2018 11:10 Notice Type: Patient Choice Letter Notice Delivered To: Patient Relationship to Patient: Flask Cleaner Name: Delivery Method: - Yuliana Days: Prior Verbal Notification: Recipient Understood Notice: Recipient Signature: Yes Med Rec Note Co-signed by Attending: Coverage Notice Comment: TEVIN WITH [facility] Last DP export: 07/01/18 10:22 am Patient Name: VINAY SYED Page 29159 at 1133 All edits/amendments must be made on the electronic document DICTATION DATE: 07/01/18 113 POTATO GRADER: ANN 07/01/18 1132 RPT#: [id number] DC DATE: STATUS: ADM IN [facility] [address] [place] [address] END OF REPORT
[2018-07-01 13:58] VITALS: BP 107/55
--- NOTE | 2018-07-01 14:02 | NUR ---
SPOKE TO GEORGE RESEARCH METHODOLOGIST IN REGARDS TO PT BACKBRACE, REORDERED BRACE FOR PT WILL CONTINUE WITH PLAN OF CARE
--- NOTE | 2018-07-01 15:21 | NUR ---
I have reviewed this patient and I concur with the Shift Assessment completed by the Licensed Practical Nurse today this shift.
[2018-07-01 18:01] VITALS: BP 99/49
[2018-07-01 21:11] VITALS: BP 113/44
[2018-07-02 01:32] VITALS: BP 124/50
[2018-07-02 05:18] VITALS: BP 139/53
[2018-07-02 07:13] LABS: BASOPHILS 0.4 % (0-2); EOSINOPHILS 4.4 % (0-7); HEMATOCRIT 33.9 % (36.0-48.0); HEMOGLOBIN 9.7 g/dL (12-16); IMMATURE GRANULOCYTES 0.4 % (0-5); LYMPHOCYTES 25.8 % (15-50); MCHC 28.6 g/dL (31.0-37.0); MCV 76.9 fL (80.0-100.0); MEAN PLATELET VOLUME 9.4 fL (7.4-10.4); MONOCYTES 11.4 % (2-11); NEUTROPHILS 57.6 % (40-80); PLATELET COUNT 314 10x3/uL (130-400); RBC 4.41 10x6/uL (4.00-5.40); RDW 26.2 % (11.5-14.5); WBC 5.6 10x3/uL (4.8-10.8)
[2018-07-02 07:37] LABS: ALBUMIN 2.5 g/dL (3.4-5.0); ANION GAP 11.5 mmol/L (8-16); BILIRUBIN - TOTAL 0.44 mg/dL (0.2-1.3); CALCIUM 8.1 mg/dL (8.5-10.1); CARBON DIOXIDE 27.1 mmol/L (21.0-32.0); CREATININE - SERUM 0.9 mg/dL (0.6-1.3); POTASSIUM - SERUM 3.6 mmol/L (3.5-5.1); PROTEIN - SERUM 6.8 g/dL (6.4-8.2)
[2018-07-02 09:19] VITALS: BP 152/65
[2018-07-02 12:27] VITALS: BP 144/63
[2018-07-02 18:03] VITALS: BP 136/56
--- NOTE | 2018-07-02 19:00 | NUR ---
REPORT RECEIVED AND CARE OF PT ASSUMED. PT LYING IN LOW FLEMING'S POSITION WATCHING TV. IV IN RIGHT FA SALINE LOCKED. WILL MONITOR FOR NEEDS.
[2018-07-02 21:00] VITALS: BP 128/56
--- NOTE | 2018-07-02 21:00 | NUR ---
HS MEDICATIONS GIVEN TO INCLUDE TYLENOL AND ZANAFLEX PER REQUEST FOR PAIN. WILL CONTINUE TO MONITOR FOR NEEDS.
[2018-07-03 01:06] VITALS: BP 113/53
[2018-07-03 04:36] VITALS: BP 131/54
[2018-07-03 06:18] LABS: BASOPHILS 0.6 % (0-2); EOSINOPHILS 3.4 % (0-7); HEMATOCRIT 36.7 % (36.0-48.0); HEMOGLOBIN 10.6 g/dL (12-16); IMMATURE GRANULOCYTES 0.4 % (0-5); LYMPHOCYTES 27.9 % (15-50); MCH 22.6 pg (26.0-34.0); MCHC 28.9 g/dL (31.0-37.0); MCV 78.1 fL (80.0-100.0); MEAN PLATELET VOLUME 9.5 fL (7.4-10.4); MONOCYTES 14.2 % (2-11); NEUTROPHILS 53.5 % (40-80); PLATELET COUNT 361 10x3/uL (130-400); RDW 26.8 % (11.5-14.5); WBC 6.7 10x3/uL (4.8-10.8)
[2018-07-03 06:40] LABS: ALBUMIN 2.7 g/dL (3.4-5.0); ANION GAP 11.5 mmol/L (8-16); BILIRUBIN - TOTAL 0.42 mg/dL (0.2-1.3); CALCIUM 8.1 mg/dL (8.5-10.1); CARBON DIOXIDE 28.2 mmol/L (21.0-32.0); CREATININE - SERUM 0.9 mg/dL (0.6-1.3); POTASSIUM - SERUM 3.7 mmol/L (3.5-5.1); PROTEIN - SERUM 7.5 g/dL (6.4-8.2)
[2018-07-03 12:16] LABS: AEROBE ID Final report (()); RESULT 1 Aerococcus urinae (())
[2018-07-03 13:11] VITALS: BP 128/76
[2018-07-03] MEDS ORDERED: ZANAFLEX4 MG PO (14:18)
[2018-07-03] MEDS ORDERED: FERROUS SULFAT325 MG PO (14:18)
[2018-07-03] MEDS ORDERED: AUGMENTIN 875-11 TAB PO (14:19)
--- NOTE | 2018-07-03 15:46 | MORECARE ---
CASE MANAGEMENT DISCHARGE SUMMARY PATIENT: VINAY SYED UNIT: [id number] ADM DATE: 06/26/18 AGE: 82 : 37 SEX: F ROOM/BED: D.2214 AUTHOR: KYE MCCORMICK PHYSICIAN: REFERRING PHYSICIAN: HALINA HANKINS MD DATE OF SERVICE: 07/03/18 Discharge Plan Patient Name: VINAY SYED Facility: [facility]:[place] : 1935 Planned Disposition: Home with Hospice Anticipated Discharge Date: Discharge Date: Expected LOS: Initial Reviewer: [id number] Initial Review Date: 06/25/2018 Generated: 07/03/18 4:45 pm Comments DCP- Discharge Planning Updated by [email or web address]: Marissa Rueda on 07/03/18 2:[address] PATIENT WILL BE DISCHARGING HOME WITH [facility]. FAXED CLINICAL TO [facility] AND SPOKE TO TIARA LOZANO TO FOLLOW NEEDED DCP- Discharge Planning Updated by [email or web address]: Marissa Rueda on 07/01/18 10:[address] Patient Name: VINAY SYED Admission Status: ER Accout number: [id number] Admission Date: 06-26-2018 : 1935 Admission Diagnosis:ANEMIA IN OTHER CHRONIC DISEASES CLASSIFIED ELSEWHERE Attending: HALINA HANKINS Current LOS: 5 Anticipated DC Date: Planned Disposition: Home with Hospice Primary Insurance: MEDICARE A & B Discharge Planning Comments: CM met with patient to complete initial dc planning assessment. CM educated patient on the CM role and verbal consent given by patient to complete assessment. Patient lives at home with her and her adult daughter, Lora. At discharge patient plans to return home, but would like to have [facility]. TEVIN signed and placed in chart and feels this is a safe discharge. CM discussed availability of rehab services, but she did not think she could do inpatient rehab due to her pain. Patient was with [facility], but does not want to go back on hospice. She has a Nebulizer, home O2, walker, shower chair, TLSO brace, and electric wheelchair. IMM served and explained. Lora will be the one to drive her home at [place]. CM will continue to follow and will assist as needed with dc plans/needs. Lining Mechanic: Marissa Rueda DCP- Discharge Planning Updated by [email or web address]: Marissa Rueda on 06/30/18 1:[address] Patient's plan was to go home with [facility] that she is current with. Dr Barber wanted to do a face to face with the patient before they accepted her back. DCPIA - Discharge Planning Initial Assessment Updated by [email or web address]: Marissa Rueda on 07/01/18 11:14 am * Is the patient Alert and Oriented? Yes * How many steps to enter\exit or inside your home? * [facility]CP NONE [facility] * [facility] * Preadmission Environment Home with Family * ADLs Partial Dependent * Partial ADLs (Assistance needed) Ambulation Bathing Medication Management * Equipment Back Brace Nebulizer Oxygen Power Chair or Electric Scooter Rolling Walker Shower Chair * List name and contact numbers for known caregivers / representatives who currently or will assist patient after discharge: LORA (DAUGHTER) [phone] * Verbal permission to speak to the caregivers and representatives has been obtained from the patient. Yes * Community resources currently utilized Hospice Home * Please name any agencies selected above. WAS ON [facility] * Additional services required to return to the preadmission environment? Yes * Can the patient safely return to the preadmission environment? Yes * Has this patient been hospitalized within the prior 30 days at any hospital? No Coverage Notice Reviewer: [email or web address] Maria Isabel Rueda Notice Issued Date-Time: 07/01/2018 11:00 Notice Type: IM Discharge Notice Notice Delivered To: Patient Relationship to Patient: Real Estate Account Executive Name: Delivery Method: HAND - Hand Delivered Yuliana Days: Prior Verbal Notification: Recipient Understood Notice: Yes Recipient Signature: Yes Med Rec Note Co-signed by Attending: Coverage Notice Comment: Reviewer: [id number] Maria Isabel Rueda Notice Issued Date-Time: 07/01/2018 11:10 Notice Type: Patient Choice Letter Notice Delivered To: Patient Relationship to Patient: Real Estate Account Executive Name: Delivery Method: - Yuliana Days: Prior Verbal Notification: Recipient Understood Notice: Recipient Signature: Yes Med Rec Note Co-signed by Attending: Coverage Notice Comment: TEVIN WITH [facility] Last DP export: 07/01/18 10:33 am Patient Name: VINAY SYED Page 25291 at 1546 All edits/amendments must be made on the electronic document DICTATION DATE: 07/03/181544 SAP MOBILITY ARCHITECT: ANN 07/03/181544 RPT#: [id number] DC DATE: STATUS: ADM IN [facility] [address] [place] [address] END OF REPORT
--- NOTE | 2018-07-03 16:24 | NUR ---
I have reviewed this patient and I concur with the Shift Assessment completed by the Licensed Practical Nurse today this shift.
--- NOTE | 2018-07-06 13:58 | MORECARE ---
CASE MANAGEMENT DISCHARGE SUMMARY PATIENT: VINAY SYED UNIT: [id number] ADM DATE: 06/26/18 AGE: 82 : 37 SEX: F ROOM/BED: D.2214 AUTHOR: KYE MCCORMICK PHYSICIAN: REFERRING PHYSICIAN: HALINA HANKINS MD DATE OF SERVICE: 07/06/18 Discharge Plan Patient Name: VINAY SYED Facility: [facility]:[place] : 1935 Planned Disposition: Home with Hospice Anticipated Discharge Date: Discharge Date: 07/03/2018 Expected LOS: 0 Initial Reviewer: [email or web address] Initial Review Date: 06/25/2018 Generated: 07/06/18 2:58 pm Comments DCP- Discharge Planning Updated by [email or web address]: Marissa Rueda on 07/03/18 2:[address] PATIENT WILL BE DISCHARGING HOME WITH [facility]. FAXED CLINICAL TO [facility] AND SPOKE TO TIARA LOZANO TO FOLLOW NEEDED DCP- Discharge Planning Updated by [email or web address]: Marissa Rueda on 07/01/18 10:[address] Patient Name: VINAY SYED Admission Status: ER Accout number: [id number] Admission Date: 06-26-2018 : 1935 Admission Diagnosis:ANEMIA IN OTHER CHRONIC DISEASES CLASSIFIED ELSEWHERE Attending: HALINA HANKINS Current LOS: 5 Anticipated DC Date: Planned Disposition: Home with Hospice Primary Insurance: MEDICARE A & B Discharge Planning Comments: CM met with patient to complete initial dc planning assessment. CM educated patient on the CM role and verbal consent given by patient to complete assessment. Patient lives at home with her and her adult daughter, Lora. At discharge patient plans to return home, but would like to have [facility]. TEVIN signed and placed in chart and feels this is a safe discharge. CM discussed availability of rehab services, but she did not think she could do inpatient rehab due to her pain. Patient was with [facility], but does not want to go back on hospice. She has a Nebulizer, home O2, walker, shower chair, TLSO brace, and electric wheelchair. IMM served and explained. Lora will be the one to drive her home at [place]. CM will continue to follow and will assist as needed with dc plans/needs. Flash Ranging Crewmember: Marissa Rueda DCP- Discharge Planning Updated by [email or web address]: Marissa Rueda on 06/30/18 1:[address] Patient's plan was to go home with [facility] that she is current with. Dr Barber wanted to do a face to face with the patient before they accepted her back. DCPIA - Discharge Planning Initial Assessment Updated by [email or web address]: Marissa Rueda on 07/01/18 11:14 am * Is the patient Alert and Oriented? Yes * How many steps to enter\exit or inside your home? * PCP NONE [facility] WAS ON [facility] * [facility] * Preadmission Environment Home with Family * ADLs Partial Dependent * Partial ADLs (Assistance needed) Ambulation Bathing Medication Management * Equipment Back Brace Nebulizer Oxygen Power Chair or Electric Scooter Rolling Walker Shower Chair * List name and contact numbers for known caregivers / representatives who currently or will assist patient after discharge: LORA (DAUGHTER) [phone] * Verbal permission to speak to the caregivers and representatives has been obtained from the patient. Yes * Community resources currently utilized Hospice Home * Please name any agencies selected above. WAS ON [facility] * Additional services required to return to the preadmission environment? Yes * Can the patient safely return to the preadmission environment? Yes * Has this patient been hospitalized within the prior 30 days at any hospital? No Coverage Notice Reviewer: [email or web address] Maria Isabel Rueda Notice Issued Date-Time: 07/01/2018 11:00 Notice Type: IM Discharge Notice Notice Delivered To: Patient Relationship to Patient: Sandstone Splitter Name: Delivery Method: HAND - Hand Delivered Yuliana Days: Prior Verbal Notification: Recipient Understood Notice: Yes Recipient Signature: Yes Med Rec Note Co-signed by Attending: Coverage Notice Comment: Reviewer: [id number] Maria Isabel Rueda Notice Issued Date-Time: 07/01/2018 11:10 Notice Type: Patient Choice Letter Notice Delivered To: Patient Relationship to Patient: Sandstone Splitter Name: Delivery Method: - Yuliana Days: Prior Verbal Notification: Recipient Understood Notice: Recipient Signature: Yes Med Rec Note Co-signed by Attending: Coverage Notice Comment: TEVIN WITH [facility] Last DP export: 07/03/18 2:45 pm Patient Name: VINAY SYED Page 67039 at 1358 All edits/amendments must be made on the electronic document DICTATION DATE: 07/06/188 FLATWORK IRONER: ANN 07/06/18 1356 RPT#: [id number] DC DATE:07/03/18 STATUS: DIS IN [facility] [address] [place] [address] END OF REPORT
== END 2018-07-03 18:15 | disposition home health service (06) | DRG 551 ==
LOC: D.ER 17:33 → OBSVTIME 20:08 → D.MS 20:08
PROVIDERS: Emergency Medicine; Family Medicine; ADMIT Internal Medicine Nephrology; ATTEND Internal Medicine Nephrology
DX: S32.009A Unspecified fracture of unspecified lumbar vertebra, initial encounter for closed fracture (principal); J96.21 Acute and chronic respiratory failure with hypoxia; I26.99 Other pulmonary embolism without acute cor pulmonale; N39.0 Urinary tract infection, site not specified; D63.8 Anemia in other chronic diseases classified elsewhere; E86.0 Dehydration; W19.XXXA Unspecified fall, initial encounter; I10 Essential (primary) hypertension; I25.10 Atherosclerotic heart disease of native coronary artery without angina pectoris; I11.0 Hypertensive heart disease with heart failure; I50.9 Heart failure, unspecified

== ENCOUNTER 2018-09-29 20:32 | Inpatient (IN) | payer MEDICARE, OTHER ==
[~2018-09-29] VITALS: Ht 156.2 cm; Wt 111.1 kg
[~2018-09-29 20:32] MED LIST changes: +AUGMENTIN 875-11 TAB PO; +FERROUS SULFAT325 MG PO; +INDOCIN25 MG PO; +ISOSORBIDE MONO10 MG PO; +MORPHINE SULFAT15 M4 PO; +NITROSTAT0.4 MG SL; +POTASSIUM CHLO10 ME1 PO; +TESSALON PERLE100 MG PO; +ZANAFLEX4 MG PO
[2018-09-29 21:18] LABS: BASOPHILS 0.9 % (0-2); EOSINOPHILS 3.7 % (0-7); HEMATOCRIT 31.2 % (36.0-48.0); HEMOGLOBIN 10.1 g/dL (12-16); IMMATURE GRANULOCYTES 0.3 % (0-5); LYMPHOCYTES 24.7 % (15-50); MCH 30.8 pg (26.0-34.0); MCHC 32.4 g/dL (31.0-37.0); MCV 95.1 fL (80.0-100.0); MEAN PLATELET VOLUME 8.4 fL (7.4-10.4); MONOCYTES 14.6 % (2-11); NEUTROPHILS 55.8 % (40-80); RBC 3.28 10x6/uL (4.00-5.40); WBC 6.7 10x3/uL (4.8-10.8)
[2018-09-29 21:21] LABS: PLATELET COUNT 288 10x3/uL (130-400)
[2018-09-29 21:39] LABS: ALBUMIN 2.7 g/dL (3.4-5.0); ALKALINE PHOSPHATASE 93 U/L (46-116); ALT (SGPT) 18 U/L (10-68); BILIRUBIN - TOTAL 0.28 mg/dL (0.2-1.3); CALC OSMOLALITY 286 mosm/kg (275-300); CALCIUM 8.3 mg/dL (8.5-10.1); CARBON DIOXIDE 30.5 mmol/L (21.0-32.0); CHLORIDE - SERUM 104 mmol/L (98-107); CREATININE - SERUM 0.8 mg/dL (0.6-1.3); GLUCOSE 101 mg/dL (74-106); POTASSIUM - SERUM 3.7 mmol/L (3.5-5.1); PROTEIN - SERUM 6.6 g/dL (6.4-8.2); SODIUM 142 mmol/L (136-145); UREA NITROGEN 25 mg/dL (7-18); eGFR NON AFRICAN AMERICAN 73 mL/min (90-120)
[2018-09-29 21:47] LABS: PRO BNP 320 pg/mL (0-450)
[2018-09-29 21:48] LABS: TROPONIN-I < 0.017 ng/mL (0.000-0.060)
--- NOTE | 2018-09-29 22:47 | NUR ---
URINE SENT TO LAB.
[2018-09-29 22:58] LABS: APPEARANCE CLEAR (CLEAR); BILIRUBIN NEGATIVE (NEGATIVE); COLOR YELLOW (YELLOW); GLUCOSE NEGATIVE (NEGATIVE); KETONE NEGATIVE (NEGATIVE); NITRITE NEGATIVE (NEGATIVE); PROTEIN NEGATIVE (NEGATIVE); SPECIFIC GRAVITY 1.015 (1.005-1.020); UROBILINOGEN NORMAL (NORMAL)
[2018-09-29 23:00] LABS: BACTERIA FEW /hpf (NONE SEEN); EPITHELIAL CELLS 0-5 /hpf (0-5); RED CELLS - URINE RARE /hpf (0-5); WHITE CELLS - URINE 0-5 /hpf (0-5)
[2018-09-29 23:01] LABS: YEAST RARE /hpf (NONE SEEN)
--- NOTE | 2018-09-30 01:52 | NUR ---
I have reviewed this patient and I concur with the Shift Assessment completed by the Licensed Practical Nurse today this shift.
[2018-09-30] MEDS ORDERED: COUMADIN5 MG PO (02:32)
[2018-09-30 02:39] VITALS: BP 112/52; BMI 45.6
[2018-09-30 06:01] LABS: BASOPHILS 0.7 % (0-2); EOSINOPHILS 3.9 % (0-7); HEMATOCRIT 30.7 % (36.0-48.0); HEMOGLOBIN 9.8 g/dL (12-16); IMMATURE GRANULOCYTES 0.2 % (0-5); MCH 30.2 pg (26.0-34.0); MCHC 31.9 g/dL (31.0-37.0); MCV 94.5 fL (80.0-100.0); MONOCYTES 12.9 % (2-11); NEUTROPHILS 55.3 % (40-80); PLATELET COUNT 310 10x3/uL (130-400); RBC 3.25 10x6/uL (4.00-5.40); RDW 17.8 % (11.5-14.5); WBC 5.6 10x3/uL (4.8-10.8)
[2018-09-30 06:12] LABS: ALBUMIN 2.4 g/dL (3.4-5.0); ALKALINE PHOSPHATASE 85 U/L (46-116); ALT (SGPT) 15 U/L (10-68); BILIRUBIN - TOTAL 0.31 mg/dL (0.2-1.3); CALC OSMOLALITY 289 mosm/kg (275-300); CALCIUM 8.1 mg/dL (8.5-10.1); CARBON DIOXIDE 29.8 mmol/L (21.0-32.0); CHLORIDE - SERUM 106 mmol/L (98-107); CREATININE - SERUM 0.7 mg/dL (0.6-1.3); GLUCOSE 102 mg/dL (74-106); POTASSIUM - SERUM 3.4 mmol/L (3.5-5.1); SODIUM 144 mmol/L (136-145); UREA NITROGEN 21 mg/dL (7-18); eGFR NON AFRICAN AMERICAN 85 mL/min (90-120)
[2018-09-30 08:02] LABS: INR 4.78 (0.85-1.17)
[2018-09-30 09:17] VITALS: BP 136/44
[2018-09-30 09:41] VITALS: BMI 45.5
--- NOTE | 2018-09-30 11:39 | NUR ---
I have reviewed this patient and I concur with the Shift Assessment completed by the Licensed Practical Nurse today this shift.
--- NOTE | 2018-09-30 12:56 | NUR ---
Rehab Prescreening Consult recieved and the chart has been reviewed. She was not able to participate in therapy and does not at this time have a medical necessity documented. Rehab will wait for the H&P. recommend an OT eval as well. Leigha Gresham RN Clinical Liaison, Rehab
[2018-09-30 12:57] VITALS: Ht 156.2 cm; Wt 111.1 kg
[2018-09-30 13:34] VITALS: BP 121/48
[2018-09-30 13:54] LABS: % SATURATION 9 % (15-55); IRON 20 ug/dl (35-150); TOTAL IRON BIND CAPACITY 219 ug/dl (260-445); UNSAT IRON BIND CAPACITY 199 ug/dl (150-375)
--- NOTE | 2018-09-30 14:17 | NUR ---
PT REFUSED SCD'S AND NO-SKID SOCKS.
[2018-09-30 15:07] LABS: ERYTHROCYTE SEDIMENTATION RATE 47 mm/hr (0-30)
[2018-09-30 17:36] VITALS: BP 129/54
[2018-09-30 20:00] VITALS: BP 132/58
--- NOTE | 2018-09-30 20:28 | NUR ---
16 FR. DOMINGO CATH PLACED USING STERILE TECHNIQUE. PT TOLERATED WELL.
--- NOTE | 2018-09-30 22:28 | NUR ---
DOMINGO CATH LEAKING, CATH REMOVED. PT REQUEST THAT DOMINGO BE LEFT OUT AT THIS TIME.
--- NOTE | 2018-10-01 00:56 | NUR ---
I have reviewed this patient and I concur with the Shift Assessment completed by the Licensed Practical Nurse today this shift.
[2018-10-01 04:00] VITALS: BP 128/56
--- NOTE | 2018-10-01 07:11 | NUR ---
REPORT RECEIVED. WILL CONTINUE WITH POC. PT CURRENTLY LYING SEMI FOWLERS. CALL LIGHT W/I REACH. PT IS RESTING AT THE MOMENT. RR EVEN AND UNLABORED ON RA. LEFT AC PIV IS SALINE LOCKED. PT DENIES ANY NEEDS AT THIS TIME. NO S/S OF DISTRESS NOTED. WILL CTM.
[2018-10-01 07:21] LABS: CALCIUM 8.3 mg/dL (8.5-10.1); CARBON DIOXIDE 33.8 mmol/L (21.0-32.0); CHLORIDE - SERUM 103 mmol/L (98-107); CREATININE - SERUM 0.7 mg/dL (0.6-1.3); EOSINOPHILS 2.7 % (0-7); GLUCOSE 111 mg/dL (74-106); HEMATOCRIT 31.6 % (36.0-48.0); HEMOGLOBIN 10.4 g/dL (12-16); IMMATURE GRANULOCYTES 0.3 % (0-5); LYMPHOCYTES 23.3 % (15-50); MCH 30.7 pg (26.0-34.0); MCHC 32.9 g/dL (31.0-37.0); MCV 93.2 fL (80.0-100.0); MEAN PLATELET VOLUME 8.9 fL (7.4-10.4); NEUTROPHILS 60.7 % (40-80); PLATELET COUNT 313 10x3/uL (130-400); RBC 3.39 10x6/uL (4.00-5.40); RDW 17.2 % (11.5-14.5); SODIUM 142 mmol/L (136-145); eGFR NON AFRICAN AMERICAN 85 mL/min (90-120)
[2018-10-01 07:25] LABS: INR 3.88 (0.85-1.17); PROTIME 37.3 SECONDS (11.6-15.0)
[2018-10-01 07:26] LABS: CALC OSMOLALITY 284 mosm/kg (275-300); POTASSIUM - SERUM 3.3 mmol/L (3.5-5.1); UREA NITROGEN 15 mg/dL (7-18)
[2018-10-01 09:20] VITALS: BP 154/57
[2018-10-01 13:19] VITALS: BP 140/70
--- NOTE | 2018-10-01 14:23 | MORECARE ---
CASE MANAGEMENT DISCHARGE SUMMARY PATIENT: VINAY SYED UNIT: [id number] ADM DATE: 09/30/18 AGE: 82 : 37 SEX: F ROOM/BED: D.2124 AUTHOR: KYE MCCORMICK PHYSICIAN: REFERRING PHYSICIAN: HALINA HANKINS MD DATE OF SERVICE: 10/01/18 Discharge Plan Patient Name: VINAY SYED Facility: [facility]:[place] : 1935 Planned Disposition: Inpatient Rehab Anticipated Discharge Date: 10/02/18 Discharge Date: Expected LOS: 2 Initial Reviewer: [email or web address] Initial Review Date: 10/01/2018 Generated: 10/01/18 3:23 pm DCPIA - Discharge Planning Initial Assessment Updated by [email or web address]: Jayy Oseguera on 10/01/18 2:22 pm * Is the patient Alert and Oriented? Yes * How many steps to enter\exit or inside your home? RAMP * PCP DR. MAHONEY * [facility] * Preadmission Environment Home with Family * ADLs Partial Dependent * Partial ADLs (Assistance needed) Bathing * Equipment Nebulizer Oxygen Walker Wheelchair * Other Equipment OXYGEN AT NIGHT ONLY [facility] PATIENT - MEDICAL EQUIPMENT PROVIDER * List name and contact numbers for known caregivers / representatives who currently or will assist patient after discharge: LORA BILLS, DTR, * Verbal permission to speak to the caregivers and representatives has been obtained from the patient. Yes * Community resources currently utilized Home Health * Please name any agencies selected above. [facility], NURSING, PHYSICAL THERAPY AND AIDE SERVICE FOR [place] * Additional services required to return to the preadmission environment? No * Can the patient safely return to the preadmission environment? Yes * Has this patient been hospitalized within the prior 30 days at any hospital? Yes Coverage Notice Reviewer: [id number] - Jayy Oseguera Notice Issued Date-Time: 10/01/2018 12:20 Notice Type: IM Discharge Notice Notice Delivered To: Patient Relationship to Patient: Fiberglass Boat Assembly Supervisor Name: Delivery Method: HAND - Hand Delivered Yuliana Days: Prior Verbal Notification: Recipient Understood Notice: Yes Recipient Signature: Yes Med Rec Note Co-signed by Attending: Coverage Notice Comment: Patient Name: VINAY SYED Page 74912 at 1423 All edits/amendments must be made on the electronic document DICTATION DATE: 10/01/181422 AIRFREIGHT LOADING SUPERVISOR: ANN 10/01/181422 RPT#: [id number] DC DATE: STATUS: ADM IN [facility] [address] [place] [address] END OF REPORT
--- NOTE | 2018-10-01 14:50 | MORECARE ---
CASE MANAGEMENT DISCHARGE SUMMARY PATIENT: VINAY SYED UNIT: [id number] ADM DATE: 09/30/18 AGE: 82 : 37 SEX: F ROOM/BED: D.0247 AUTHOR: KYE MCCORMICK PHYSICIAN: REFERRING PHYSICIAN: HALINA HANKINS MD DATE OF SERVICE: 10/01/18 Discharge Plan Patient Name: VINAY SYED [facility] [facility] 1935 Planned Disposition: Inpatient Rehab Anticipated Discharge Date: 10/02/18 Discharge Date: Expected LOS: 2 Initial Reviewer: [id number] Initial Review Date: 10/01/2018 Generated: 10/01/18 3:49 pm Comments DCP- Discharge Planning Updated by [email or web address]: Jayy Oseguera on 10/01/18 1:[address] Patient Name: VINAY SYED Admission Status: ER Accout number: [id number] Admission Date: 09-30-2018 : 1935 Admission Diagnosis: Attending: HALINA HANKINS Current LOS: 1 Anticipated DC Date: 10-02-2018 Planned Disposition: Inpatient Rehab Primary Insurance: MEDICARE A & B PLANED EXTERNAL PROVIDER: [facility] Discharge Planning Comments: CM RECEIVED ORDER FOR INPATIENT REHAB PRESCREENING. CM MET WITH PT AND DAUGHTER IN ROOM TO DISCUSS DISCHARGE PLANNING AND NEEDS. VINAY SYDE provided verbal consent to discuss current and ongoing needs with/in the presence of: DAUGHTERLORA. PT REPORTS LIVING AT HOME WITH HER SPOUSE. PT REPORTS SHE HAS BEEN HAVING HELP FROM HOME HEALTH AIDE FOR [place]. PT HAS NEBULIZER, HOME OXYGEN FOR NIGHTTIME USE, WALKER AND WHEELCHAIR FROM [facility] [place] PATIENT. PT HAS NO OUTSIDE SERVICES ASSISTING IN THE HOME OTHER THAN [facility] FOR NURSING, PHYSICAL THERAPY AND MANUFACTURING ENGINEERING PROFESSOR SERVICES FOR [place] ASSISTANCE. CM DISCUSSED AVAILABILITY OF HOME HEALTH, REHAB SERVICES AND MEDICAL EQUIPMENT. PT DENIES DISCHARGE NEEDS, REPORTS DAUGHTER WILL PICK HER UP FOR DISCHARGE HOME. IMPORTANT MESSAGE FROM MEDICARE PROVIDED AND EXPLAINED. CM DISCUSSED INPATIENT REHAB. PT REPORTS WANTING TO BE ON THE REHAB LIST FOR [place]. CM INFORMED PT THAT SHE WILL NEED TO PARTICIPATE FULLY WITH EACH OFFERED SESSION OF THERAPY. PT REPORTED UNDERSTANDING AND ASSURED PT SHE WILL PARTICIPATE WITH THERAPY. CM WAITING MEDICAL STABILITY WELL ADMISSION DETERMINATION / INPATIENT REHAB PRESCREENING FROM [facility]. Child & Adolescent Psychiatrist: Jayy Oseguera DCPIA - Discharge Planning Initial Assessment Updated by [email or web address]: Jayy Oseguera on 10/01/18 2:22 pm * Is the patient Alert and Oriented? Yes * How many steps to enter\exit or inside your home? RAMP * PCP DR. MAHONEY * [facility] [address] * Preadmission Environment Home with Family * ADLs Partial Dependent * Partial ADLs (Assistance needed) Bathing * Equipment Nebulizer Oxygen Walker Wheelchair * Other Equipment OXYGEN AT NIGHT ONLY [facility] [place] PATIENT - MEDICAL EQUIPMENT PROVIDER * List name and contact numbers for known caregivers / representatives who currently or will assist patient after discharge: LORA BILLS, DTR, * Verbal permission to speak to the caregivers and representatives has been obtained from the patient. Yes * Community resources currently utilized Home Health * Please name any agencies selected above. [facility], NURSING, PHYSICAL THERAPY AND AIDE SERVICE FOR [place]ATH * Additional services required to return to the preadmission environment? No * Can the patient safely return to the preadmission environment? Yes * Has this patient been hospitalized within the prior 30 days at any hospital? Yes Coverage Notice Reviewer: [id number] - Jayy Oseguera Notice Issued Date-Time: 10/01/2018 12:20 Notice Type: IM Discharge Notice Notice Delivered To: Patient Relationship to Patient: Direct Support Professional Name: Delivery Method: HAND - Hand Delivered Yuliana Days: Prior Verbal Notification: Recipient Understood Notice: Yes Recipient Signature: Yes Med Rec Note Co-signed by Attending: Coverage Notice Comment: Last DP export: 10/01/18 1:23 pm Patient Name: VINAY SYED Page 93425 at 1450 All edits/amendments must be made on the electronic document DICTATION DATE: 10/01/181448 SUSTAINABLE AGRICULTURE FACULTY: ANN 10/01/181448 RPT#: [id number] DC DATE: STATUS: ADM IN [facility] [address] [place] [address] END OF REPORT
--- NOTE | 2018-10-01 15:07 | NUR ---
PT ASSISTED TO AND FROM BATHROOM WHERE PT VOIDED PALE YELLOW URINE. PT REFUSED CATHETER STATING "I DONT THINK I NEED IT ANYMORE, IM NOT PEEING LIKE I USE TO." WILL CTM.
[2018-10-01 15:13] LABS: ERYTHROCYTE SEDIMENTATION RATE 65 mm/hr (0-30)
[2018-10-01 16:41] LABS: APPEARANCE CLEAR (CLEAR); BILIRUBIN NEGATIVE (NEGATIVE); COLOR YELLOW (YELLOW); GLUCOSE NEGATIVE (NEGATIVE); KETONE NEGATIVE (NEGATIVE); NITRITE NEGATIVE (NEGATIVE); PROTEIN NEGATIVE (NEGATIVE); UROBILINOGEN NORMAL (NORMAL)
[2018-10-01 16:42] LABS: BACTERIA FEW /hpf (NONE SEEN); EPITHELIAL CELLS OCC /hpf (0-5); WHITE CELLS - URINE 0-5 /hpf (0-5)
[2018-10-01 17:43] VITALS: BP 113/68
--- NOTE | 2018-10-01 18:33 | NUR ---
OT NOTE: PT COMPLETED BED MOB WITH MOD A. PT COMPLETED ADL MOB WITH MOD A. PT COMPLETED TOILETING TASKS WITH MIN/MOD A. THANK YOU, KELLY COCHRAN
--- NOTE | 2018-10-01 19:40 | NUR ---
AWAKE AND ALERT BED LOW AND LOCKED SR X2 PT DENIES ANY NEEDS AT THIS TIME IV SL....LCTA AND SKIN WARM AND DRY AND BOWEL SOUNS X4
[2018-10-01 20:00] VITALS: BP 143/67
[2018-10-02] VITALS: BP 118/61
--- NOTE | 2018-10-02 01:45 | NUR ---
I have reviewed this patient and I concur with the Shift Assessment completed by the Licensed Practical Nurse today this shift.
[2018-10-02 04:00] VITALS: BP 144/73
[2018-10-02 05:44] LABS: EOSINOPHILS 2.9 % (0-7); HEMATOCRIT 31.4 % (36.0-48.0); HEMOGLOBIN 10.2 g/dL (12-16); IMMATURE GRANULOCYTES 0.7 % (0-5); LYMPHOCYTES 29.3 % (15-50); MCH 30.3 pg (26.0-34.0); MCHC 32.5 g/dL (31.0-37.0); MCV 93.2 fL (80.0-100.0); MEAN PLATELET VOLUME 9.3 fL (7.4-10.4); MONOCYTES 14.2 % (2-11); NEUTROPHILS 51.9 % (40-80); PLATELET COUNT 356 10x3/uL (130-400); RBC 3.37 10x6/uL (4.00-5.40); RDW 17.2 % (11.5-14.5); WBC 5.8 10x3/uL (4.8-10.8)
[2018-10-02 06:00] LABS: CALC OSMOLALITY 285 mosm/kg (275-300); CALCIUM 8.3 mg/dL (8.5-10.1); CARBON DIOXIDE 33.9 mmol/L (21.0-32.0); CHLORIDE - SERUM 103 mmol/L (98-107); CREATININE - SERUM 0.7 mg/dL (0.6-1.3); GLUCOSE 108 mg/dL (74-106); POTASSIUM - SERUM 3.4 mmol/L (3.5-5.1); SODIUM 143 mmol/L (136-145); UREA NITROGEN 13 mg/dL (7-18); eGFR NON AFRICAN AMERICAN 85 mL/min (90-120)
[2018-10-02 07:18] LABS: INR 3.16 (0.85-1.17); PROTIME 31.7 SECONDS (11.6-15.0)
--- NOTE | 2018-10-02 07:36 | NUR ---
REPORT RECEIVED. WILL CONTINUE WITH POC. PT CURRENTLY LYING SEMI FOWLERS. CALL LIGHT W/I REACH. PT IS RESTING AT THE MOMENT. RR EVEN AND UNLABORED ON RA. L.AC PIV IS SALINE LOCKED. PT DENIES ANY NEEDS AT THIS TIME. NO S/S OF DISTRESS NOTED. WILL CTM.
[2018-10-02 07:52] VITALS: BP 130/67
[2018-10-02 12:01] VITALS: BP 129/67
--- NOTE | 2018-10-02 12:36 | NUR ---
OT NOTE: BED MOB WITH MIN ASSIST FOR SUPINE TO SIT; AMB FROM BED TO TOILET WITH CGA AND USE OF ROLATOR WALKER. TOILET TRANSFER WITH MIN ASSIST; SPV WITH HYGIENE AND CLOTHING MGMT; SET UP FOR FEEDING AND GROOMING. AMB WITH P.T. ; BACK TO BED WITH MOD ASSIST FOR SIT TO SUPINE. ABLE TO REPOSITION WITHOUT ASSIST. PT DOING MUCH BETTER. IGGY MANNING, OTR/L
--- NOTE | 2018-10-02 14:30 | NUR ---
Nutrition Follow Up: Diet: CHRIS PO Intake: 83% meal avg BM: 10/01/18 Labs and meds reviewed Rec continue current diet. RD following.
--- NOTE | 2018-10-02 15:28 | NUR ---
PT CURRENTLY LYING SEMI FOWLERS. CALL LIGHT W/I REACH. RR EVEN AND UNLABORED ON RA. NO S/S OF DISTRESS NOTED. PT DENIES ANY NEEDS. WILL CTM.
[2018-10-02 15:38] VITALS: BP 118/36
[2018-10-02 20:00] VITALS: BP 120/61
--- NOTE | 2018-10-02 20:00 | NUR ---
INITIAL ROUNDS AND ASSESSMENT COMPLETED. PT RESTING WITH NO DISTRESS. RESPS EVEN/NONLABORED. SEE ASSESSMENT. CALL LIGHT IN REACH. CPOC.
--- NOTE | 2018-10-02 21:25 | NUR ---
BEDTIME MEDS GIVEN.
[2018-10-03] VITALS: BP 141/62
[2018-10-03 04:00] VITALS: BP 93/44
--- NOTE | 2018-10-03 04:32 | NUR ---
AM LABS COLLECTED PER VENIPUCTURE/ISOTOPE HYDROLOGIST. PT RESTING. NO NEEDS VOICED. CPOC.
[2018-10-03 05:02] LABS: INR 2.53 (0.85-1.17); PROTIME 26.5 SECONDS (11.6-15.0)
[2018-10-03 05:03] LABS: BASOPHILS 1.3 % (0-2); HEMATOCRIT 33.2 % (36.0-48.0); HEMOGLOBIN 10.7 g/dL (12-16); IMMATURE GRANULOCYTES 0.7 % (0-5); LYMPHOCYTES 29.5 % (15-50); MCH 30.4 pg (26.0-34.0); MCHC 32.2 g/dL (31.0-37.0); MCV 94.3 fL (80.0-100.0); MEAN PLATELET VOLUME 8.7 fL (7.4-10.4); MONOCYTES 12.9 % (2-11); NEUTROPHILS 52.6 % (40-80); PLATELET COUNT 317 10x3/uL (130-400); RBC 3.52 10x6/uL (4.00-5.40); RDW 17.2 % (11.5-14.5); WBC 6.1 10x3/uL (4.8-10.8)
[2018-10-03 05:04] LABS: CALC OSMOLALITY 288 mosm/kg (275-300); CALCIUM 8.7 mg/dL (8.5-10.1); CARBON DIOXIDE 32.7 mmol/L (21.0-32.0); CHLORIDE - SERUM 103 mmol/L (98-107); CREATININE - SERUM 0.7 mg/dL (0.6-1.3); GLUCOSE 126 mg/dL (74-106); POTASSIUM - SERUM 3.6 mmol/L (3.5-5.1); SODIUM 143 mmol/L (136-145); eGFR NON AFRICAN AMERICAN 85 mL/min (90-120)
[2018-10-03 05:13] LABS: UREA NITROGEN 17 mg/dL (7-18)
--- NOTE | 2018-10-03 07:36 | NUR ---
REPORT RECIEVED AND ROUNDING COMPLETE. PATIENT LAYING IN SUPINE POSTITON WITH HOB ELEVATED TO 30%. PATIENT'S EYES CLOSED, BREATHING SHALLOW YET EVEN. PATIENT IS SHOWING NO S/SX OF DISTRESS AT THIS TIME. CALL LIGHT WITH REACH AND BED IN LOWEST POSITION.
--- NOTE | 2018-10-03 08:24 | NUR ---
OT NOTE: (DOS 10/02/18) PT EXHIBITED INCREASED I WITH BED MOB TASKS AND ADL MOB . PT REQUIRED MIN A/CGA. PT COMPLETED TOILETING TASKS WITH SBA. PT STATED SHE FEELS MUCH BETTER THIS AM. THANK YOU, KELLY COCHRAN
--- NOTE | 2018-10-03 08:42 | NUR ---
PATIENT COMPLAINING OF SOME LEFT LEG AROUND LEFT GROIN AREA. PATIENT REFUSES TO LET ME LOOK AT IT. PATIENT STATES SHE THINKS ITS FROM NOT TAKING COUMADIN. PATIENT STATES SHE IS READY TO GO HOME. ADVISED PATIENT TO TALK IT OVER WITH THE DOCTOR BEFORE MAKING AND DECISIONS. NO OTHER NEEDS AT THIS TIME CALL MAL LOO REACH AND BED INLOWEST POSITON.
[2018-10-03 09:33] VITALS: BP 119/71
--- NOTE | 2018-10-03 10:56 | NUR ---
I have reviewed this patient and I concur with the Shift Assessment completed by the Licensed Practical Nurse today this shift.
[2018-10-03 16:10] VITALS: BP 121/53
--- NOTE | 2018-10-03 18:42 | NUR ---
PATIENTS LEFT AC LEAKING, REMOVED CATH INTACT. PLACED NEW 22 GAUGE RIGHT FOREARM 1 STICK PATIENT TOLERATED WELL.
[2018-10-03 19:10] VITALS: BP 123/57
--- NOTE | 2018-10-03 20:00 | NUR ---
INITIAL ROUNDS AND ASSESSMENT COMPLETED. PT RESTING IN BED WITH NO DISTRESS. CALL LIGHT IN REACH. CPOC.
--- NOTE | 2018-10-03 23:00 | NUR ---
BEDTIME MEDS GIVEN. PT RESTING WITH DISTRESS. CPOC.
[2018-10-04] VITALS: BP 120/63
[2018-10-04 04:00] VITALS: BP 130/76
[2018-10-04 05:09] LABS: BASOPHILS 0.9 % (0-2); EOSINOPHILS 2.4 % (0-7); HEMATOCRIT 31.4 % (36.0-48.0); HEMOGLOBIN 10.2 g/dL (12-16); IMMATURE GRANULOCYTES 0.4 % (0-5); LYMPHOCYTES 18.5 % (15-50); MCH 30.7 pg (26.0-34.0); MCHC 32.5 g/dL (31.0-37.0); MCV 94.6 fL (80.0-100.0); MEAN PLATELET VOLUME 9.1 fL (7.4-10.4); MONOCYTES 14.8 % (2-11); PLATELET COUNT 308 10x3/uL (130-400); RBC 3.32 10x6/uL (4.00-5.40); RDW 16.9 % (11.5-14.5)
[2018-10-04 05:14] LABS: WBC 7.8 10x3/uL (4.8-10.8)
[2018-10-04 05:17] LABS: CALC OSMOLALITY 284 mosm/kg (275-300); CARBON DIOXIDE 32.2 mmol/L (21.0-32.0); CHLORIDE - SERUM 104 mmol/L (98-107); CREATININE - SERUM 0.7 mg/dL (0.6-1.3); GLUCOSE 125 mg/dL (74-106); POTASSIUM - SERUM 3.5 mmol/L (3.5-5.1); SODIUM 142 mmol/L (136-145); UREA NITROGEN 14 mg/dL (7-18); eGFR NON AFRICAN AMERICAN 85 mL/min (90-120)
[2018-10-04 05:18] LABS: INR 2.31 (0.85-1.17); PROTIME 24.7 SECONDS (11.6-15.0)
--- NOTE | 2018-10-04 06:15 | NUR ---
PT ANXIOUS, CRYING THAT HER LEGS/CALVES ARE CRAMPING BADLY. THIS IS NIGHT #2 FOR PAIN IN HER LEGS. MEDICATED WITH TYLENOL AND ZANAFLEX AND WILL REPORT TO DAY NURSE THIS ONGOING PROBLEM TO FOLLOW UP ON AM ROUNDS WITH MD. ELLISON.
--- NOTE | 2018-10-04 07:10 | NUR ---
REPORT RECEIVED. ALERT ABLE TO VOICE NEEDS. RESP EVEN WITHOUT LABOR. USED ROLLING WALKER TO AMBULATE TO THE BATHROOM. DIGNA WELL. SHE HAD OUT 100CC OF CLOUDY YELLOW URINE. SPOKE WITH HER ABOUT INCREASING HER WATER INTAKE SOME, STATED SHE HAD NOT BEEN DRINKING MUCH BECAUSE SHE DIDNT WANT TO HAVE TO GET UP AND URINATE AND FOR FEAR LEG CRAMPS WOULD START UP AGAIN.
[2018-10-04 07:41] VITALS: BP 102/44
[2018-10-04 11:38] VITALS: BP 103/41
--- NOTE | 2018-10-04 14:23 | NUR ---
CAREPLAN REVIEW DONE AND SAFETY PRECAUTIONS IN PLACE. SHE IS ALERT AND ORIENT, RESP EVEN WITHOUT LABOR. WE TALKED FOR AWHILE ABOUT HER HOME LIFE AND SOME STRESSORS SUCH HER IS CURRENTLY IN THE HOSPITAL AND HER DAUGHTER SARY RAN OFF THIS AM
[2018-10-04 16:12] VITALS: BP 104/43
[2018-10-04 20:00] VITALS: BP 125/62
[2018-10-05] VITALS: BP 126/51
[2018-10-05 05:26] LABS: BASOPHILS 0.8 % (0-2); EOSINOPHILS 1.9 % (0-7); HEMOGLOBIN 10.4 g/dL (12-16); IMMATURE GRANULOCYTES 0.4 % (0-5); LYMPHOCYTES 20.1 % (15-50); MCH 30.4 pg (26.0-34.0); MCHC 31.5 g/dL (31.0-37.0); MCV 96.5 fL (80.0-100.0); MEAN PLATELET VOLUME 9.2 fL (7.4-10.4); MONOCYTES 13.6 % (2-11); NEUTROPHILS 63.2 % (40-80); PLATELET COUNT 314 10x3/uL (130-400); RBC 3.42 10x6/uL (4.00-5.40); WBC 8.9 10x3/uL (4.8-10.8)
[2018-10-05 05:29] LABS: CALCIUM 7.7 mg/dL (8.5-10.1); CARBON DIOXIDE 29.2 mmol/L (21.0-32.0); CHLORIDE - SERUM 105 mmol/L (98-107); GLUCOSE 120 mg/dL (74-106); POTASSIUM - SERUM 3.7 mmol/L (3.5-5.1); SODIUM 142 mmol/L (136-145)
[2018-10-05 05:30] LABS: INR 3.09 (0.85-1.17); PROTIME 31.1 SECONDS (11.6-15.0)
[2018-10-05 05:35] LABS: CALC OSMOLALITY 285 mosm/kg (275-300); CREATININE - SERUM 0.2 mg/dL (0.6-1.3); UREA NITROGEN 19 mg/dL (7-18); eGFR NON AFRICAN AMERICAN > 90 mL/min (90-120)
[2018-10-05 08:52] VITALS: BP 105/52
--- NOTE | 2018-10-05 09:00 | NUR ---
PT SITTING UP IN BED, ROUTINE MEDICATIONS GIVEN. DENIES ANY PAIN AT THIS TIME. SHIFT ASSESSMENT COMPLETED. CALL LIGHT IN REACH.
--- NOTE | 2018-10-05 12:10 | NUR ---
PT LAYING IN BED EATING LUNCH, DENIES ANY NEEDS AT THIS TIME, WILL CONT TO FOLLOW POC
[2018-10-05 12:55] VITALS: BP 118/58
--- NOTE | 2018-10-05 14:14 | NUR ---
REHAB PRESCREENING This patient has not had PT since Friday. On that day, she walked 200 feet with a 4 wheeled rolling walker. She does not meet admission criteria for acute inpatient rehab at this time. Thank you for this referral. Celine Nation, GUEST SPECIALIST Rehab PD
[2018-10-05 14:54] VITALS: BP 108/55
--- NOTE | 2018-10-05 15:03 | NUR ---
PT COMPLAINS OF CHEST PAIN. EKG PERFORMED AND IS NORMAL. SAT PT UP IN BED. ROUNDING AND REVIEWED EKG. ILA SANCHEZ STANDING WITH AND PUT IN ORDERS FOR CARDIAC ENZYMES. RETURNED TO PT ROOM AND SHE STATES HER CHEST PAIN WENT AWAY.
[2018-10-05 16:53] LABS: CKMB 1.1 U/L (0.0-3.6); CREATINE KINASE 44 UL (21-215)
[2018-10-05 17:04] LABS: TROPONIN-I < 0.017 ng/mL (0.000-0.060)
--- NOTE | 2018-10-05 17:05 | NUR ---
PIV TO PT RIGHT HAND INFILTRATED. PIV REMOVED WITH CATHETER TIP INTACT. 22G PIV INSERTED X1 ATTEMPT TO RIGHT UPPER ARM. PT TOLERATED WELL
--- NOTE | 2018-10-05 17:23 | NUR ---
OT NOTE: PT COMPLETED FACE WASHING WITH SET UP. PT COMPLETED BUE AROM EXS. THANK YOU, KELLY COCHRAN
--- NOTE | 2018-10-05 17:31 | NUR ---
PT RESTING IN BED EATING SUPPER, DENIES ANY NEEDS AT THIS TIME. WILL CONT TO FOLLOW POC
--- NOTE | 2018-10-05 19:10 | NUR ---
AT REST IN BED ALERT AND AWAKE BED IS LOW AND LOCKED AND SRX2 AND CALL LIGHT IS IN REACH I ASSISTED WITH COMFORT MEASURES LCTA SKIN WARM AND DRY
[2018-10-05 20:00] VITALS: BP 104/55
[2018-10-05 21:36] LABS: CKMB 0.8 U/L (0.0-3.6); CREATINE KINASE 37 UL (21-215)
[2018-10-05 21:49] LABS: TROPONIN-I < 0.017 ng/mL (0.000-0.060)
[2018-10-06] VITALS: BP 129/57
--- NOTE | 2018-10-06 01:46 | NUR ---
I have reviewed this patient and I concur with the Shift Assessment completed by the Licensed Practical Nurse today this shift.
[2018-10-06 03:13] LABS: BASOPHILS 0.7 % (0-2); EOSINOPHILS 2.4 % (0-7); IMMATURE GRANULOCYTES 0.3 % (0-5); LYMPHOCYTES 25.4 % (15-50); MCHC 32.1 g/dL (31.0-37.0); MCV 96.6 fL (80.0-100.0); MEAN PLATELET VOLUME 8.5 fL (7.4-10.4); MONOCYTES 12.6 % (2-11); NEUTROPHILS 58.6 % (40-80); PLATELET COUNT 269 10x3/uL (130-400); RDW 17.2 % (11.5-14.5); WBC 7.5 10x3/uL (4.8-10.8)
[2018-10-06 03:34] LABS: INR 3.73 (0.85-1.17); PROTIME 36.1 SECONDS (11.6-15.0)
[2018-10-06 03:47] LABS: ALBUMIN 2.3 g/dL (3.4-5.0); ALKALINE PHOSPHATASE 79 U/L (46-116); ALT (SGPT) 13 U/L (10-68); BILIRUBIN - TOTAL 0.33 mg/dL (0.2-1.3); CALC OSMOLALITY 286 mosm/kg (275-300); CALCIUM 7.7 mg/dL (8.5-10.1); CARBON DIOXIDE 32.5 mmol/L (21.0-32.0); CHLORIDE - SERUM 105 mmol/L (98-107); CREATINE KINASE 33 UL (21-215); CREATININE - SERUM 1.2 mg/dL (0.6-1.3); GLUCOSE 134 mg/dL (74-106); POTASSIUM - SERUM 3.4 mmol/L (3.5-5.1); PROTEIN - SERUM 5.6 g/dL (6.4-8.2); SODIUM 142 mmol/L (136-145); TROPONIN-I < 0.017 ng/mL (0.000-0.060); UREA NITROGEN 19 mg/dL (7-18); eGFR NON AFRICAN AMERICAN 46 mL/min (90-120)
[2018-10-06 04:00] VITALS: BP 102/60
--- NOTE | 2018-10-06 08:05 | NUR ---
REPORT RECEIVED FROM NIGHT NURSE. PT AWAKE AND DAILY GOALS ESTABLISHED WITH PT.
[2018-10-06 08:55] VITALS: BP 112/50
--- NOTE | 2018-10-06 11:47 | MORECARE ---
CASE MANAGEMENT DISCHARGE SUMMARY PATIENT: VINYA SYED UNIT: [id number] ADM DATE: 09/30/18 AGE: 82 : 37 SEX: F ROOM/BED: D.1880 AUTHOR: KYE MCCORMICK PHYSICIAN: REFERRING PHYSICIAN: HALINA HANKINS MD DATE OF SERVICE: 10/06/18 Discharge Plan Patient Name: [facility]INAY SYED [facility] [facility] 1935 Planned Disposition: Home with Home Health Anticipated Discharge Date: 10/06/18 Discharge Date: Expected LOS: 6 Initial Reviewer: [email or web address] Initial Review Date: 10/01/2018 Generated: 10/06/18 12:47 pm DCP- Discharge Planning Updated by [id number]: Jayy Oseguera on 10/01/18 1:[address] Patient Name: VINAY SYED Admission Status: ER Accout number: [id number] Admission Date: 09-30-2018 : 1935 Admission Diagnosis: Attending: HALINA HANKINS Current LOS: 1 Anticipated DC Date: 10-02-2018 Planned Disposition: Inpatient Rehab Primary Insurance: MEDICARE A & B PLANED EXTERNAL PROVIDER: [facility] INPATIENT REHAB Discharge Planning Comments: CM RECEIVED ORDER FOR INPATIENT REHAB PRESCREENING. CM MET WITH PT AND DAUGHTER IN ROOM TO DISCUSS DISCHARGE PLANNING AND NEEDS. VINAY SYED provided verbal consent to discuss current and ongoing needs with/in the presence of: DAUGHTERLORA. PT REPORTS LIVING AT HOME WITH HER SPOUSE. PT REPORTS SHE HAS BEEN HAVING HELP FROM HOME HEALTH AIDE FOR BATH. PT HAS NEBULIZER, HOME OXYGEN FOR NIGHTTIME USE, WALKER AND WHEELCHAIR FROM [facility]IENT. PT HAS NO OUTSIDE SERVICES ASSISTING IN THE HOME OTHER THAN [facility] HOME HEALTH FOR NURSING, PHYSICAL THERAPY AND PLANT ATTENDANT OR ASSISTANT OPERATOR SERVICES FOR BATH ASSISTANCE. CM DISCUSSED AVAILABILITY OF HOME HEALTH, REHAB SERVICES AND MEDICAL EQUIPMENT. PT DENIES DISCHARGE NEEDS, REPORTS DAUGHTER WILL PICK HER UP FOR DISCHARGE HOME. IMPORTANT MESSAGE FROM MEDICARE PROVIDED AND EXPLAINED. CM DISCUSSED INPATIENT REHAB. PT REPORTS WANTING TO BE ON THE REHAB LIST FOR [place]. CM INFORMED PT THAT SHE WILL NEED TO PARTICIPATE FULLY WITH EACH OFFERED SESSION OF THERAPY. PT REPORTED UNDERSTANDING AND ASSURED PT SHE WILL PARTICIPATE WITH THERAPY. CM WAITING MEDICAL STABILITY WELL ADMISSION DETERMINATION / INPATIENT REHAB PRESCREENING FROM [facility] INPATIENT REHAB. Mid Level Developer: Jayy Oseguera DCPIA - Discharge Planning Initial Assessment Updated by [email or web address]: Jayy Oseguera on 10/01/18 2:22 pm * Is the patient Alert and Oriented? Yes * How many steps to enter\exit or inside your home? RAMP * PCP DR. MAHONEY * Pharmacy [facility] [address] * Preadmission Environment Home with Family * ADLs Partial Dependent * Partial ADLs (Assistance needed) Bathing * Equipment Nebulizer Oxygen Walker Wheelchair * Other Equipment OXYGEN AT NIGHT ONLY [facility]IENT - MEDICAL EQUIPMENT PROVIDER * List name and contact numbers for known caregivers / representatives who currently or will assist patient after discharge: LORA BILLS, DTAvila, * Verbal permission to speak to the caregivers and representatives has been obtained from the patient. Yes * Community resources currently utilized Home Health * Please name any agencies selected above. [facility] [place] [facility], NURSING, PHYSICAL THERAPY AND AIDE SERVICE FOR BATH * Additional services required to return to the preadmission environment? No * Can the patient safely return to the preadmission environment? Yes * Has this patient been hospitalized within the prior 30 days at any hospital? Yes External Providers [facility] Next Contact Date: 10/06/2018 Service Request Date: Service Type: Resolution: Reviewer: Comments: Coverage Notice Reviewer: [email or web address] Oseguera Notice Issued Date-Time: 10/01/2018 12:20 Notice Type: IM Discharge Notice Notice Delivered To: Patient Relationship to Patient: Director Vaccine Name: Delivery Method: HAND - Hand Delivered Yuliana Days: Prior Verbal Notification: Recipient Understood Notice: Yes Recipient Signature: Yes Med Rec Note Co-signed by Attending: Coverage Notice Comment: Reviewer: REJI Oseguera Notice Issued Date-Time: 10/06/2018 9:40 Notice Type: IM Discharge Notice Notice Delivered To: Patient Relationship to Patient: Director Vaccine Name: Delivery Method: HAND - Hand Delivered Yuliana Days: Prior Verbal Notification: Recipient Understood Notice: Yes Recipient Signature: Yes Med Rec Note Co-signed by Attending: Coverage Notice Comment: Reviewer: REJI Oseguera Notice Issued Date-Time: 10/06/2018 9:40 Notice Type: Patient Choice Letter Notice Delivered To: Patient Relationship to Patient: Director Vaccine Name: Delivery Method: HAND - Hand Delivered Yuliana Days: Prior Verbal Notification: Recipient Understood Notice: Yes Recipient Signature: Yes Med Rec Note Co-signed by Attending: Coverage Notice Comment: [facility] Last DP export: 10/01/18 1:49 pm Patient Name: VINAY SYED Page [id number] at 1147 All edits/amendments must be made on the electronic document DICTATION DATE: 10/06/18 1146 HAND STRAIGHTENER: ANN 10/06/18 1146 RPT#: [id number] DC DATE: STATUS: ADM IN [facility] [address] [place] [address] END OF REPORT
--- NOTE | 2018-10-06 12:19 | MORECARE ---
CASE MANAGEMENT DISCHARGE SUMMARY PATIENT: VINAY SYED UNIT: [id number] ADM DATE: 09/30/18 AGE: 82 : 37 SEX: F ROOM/BED: D.8442 AUTHOR: ANNY,DOC PHYSICIAN: REFERRING PHYSICIAN: HALINA HANKINS MD DATE OF SERVICE: 10/06/18 Discharge Plan Patient Name: [facility]INAY SYED [facility] [facility] 1935 Planned Disposition: Home with Home Health Anticipated Discharge Date: 10/06/18 Discharge Date: Expected LOS: 6 Initial Reviewer: [email or web address] Initial Review Date: 10/01/2018 Generated: 10/06/18 1:19 pm Comments DCP- Discharge Planning Updated by [id number]: Jayy Oseguera on 10/06/18 11:[address] Patient Name: VINAY SYED Encounter No: [id number] : 1935 Primary Insurance: MEDICARE A & B Anticipated DC Date: 10-06-2018 Planned Disposition: Home with Home Health External Planned Provider: [facility] DCP follow-up note: CM REVIEWED CHART, PT HAS BEEN DECLINED BY [place] [facility]. CM MET WITH PT IN ROOM TO DISCUSS DISCHARGE PLANNING AND NEEDS. CM DISCUSSED AVAILABILITY OF [facility], MEDICAL EQUIPMENT AND HOME HEALTH. PT DECLINES SHELTER REHAB PLACEMENT, WANTS TO GO HOME WITH HOME HEALTH. SHE HAS USED [facility] IN THE PAST AND REQUESTED [facility]. CHOICE SIGNED. IMPORTANT MESSAGE FROM MEDICARE PROVIDED AND EXPLAINED. CM RECEIVED HOME HEALTH ORDER, CALLED [facility], , SPOKE TO [facility] AND PROVIDED REFERRAL INFORMATION. [facility] TO PROCESS AND SCHEDULE FOR HOME HEALTH RESUMPTION PT IS ACTIVE WITH THEM ALREADY. CM FAXED REFERRAL FOR [facility] TO [phone]. FOR DISCHARGE, NOTIFY [facility] AT [phone], FAX DISCHARGE INFORMATION TO [facility] AT [phone]. Jayy Oseguera CASE MANAGEMENT DCP- Discharge Planning Updated by [id number]: Jayy Oseguera on 10/01/18 1:[address] Patient Name: VINAY SYED Admission Status: ER Accout number: [id number] Admission Date: 09-30-2018 : 1935 Admission Diagnosis: Attending: HALINA HANKINS Current LOS: 1 Anticipated DC Date: 10-02-2018 Planned Disposition: Inpatient Rehab Primary Insurance: MEDICARE A & B PLANED EXTERNAL PROVIDER: [facility] INPATIENT REH[facility] Discharge Planning Comments: CM RECEIVED ORDER FOR INPATIENT REHAB PRESCREENING. CM MET WITH PT AND DAUGHTER IN ROOM TO DISCUSS DISCHARGE PLANNING AND NEEDS. VINAY SYED provided verbal consent to discuss current and ongoing needs with/in the presence of: DAUGHTERLORA. PT REPORTS LIVING AT HOME WITH HER SPOUSE. PT REPORTS SHE HAS BEEN HAVING HELP FROM HOME HEALTH AIDE FOR BATH. PT HAS NEBULIZER, HOME OXYGEN FOR NIGHTTIME USE, WALKER AND WHEELCHAIR FROM [facility] PATIENT. PT HAS NO OUTSIDE SERVICES ASSISTING IN THE HOME OTHER THAN [facility] FOR NURSING, PHYSICAL THERAPY AND NUTRITION PROFESSOR SERVICES FOR BATH ASSISTANCE. CM DISCUSSED AVAILABILITY OF HOME HEALTH, REHAB SERVICES AND MEDICAL EQUIPMENT. PT DENIES DISCHARGE NEEDS, REPORTS DAUGHTER WILL PICK HER UP FOR DISCHARGE HOME. IMPORTANT MESSAGE FROM MEDICARE PROVIDED AND EXPLAINED. CM DISCUSSED INPATIENT REHAB. PT REPORTS WANTING TO BE ON THE REHAB LIST FOR [place]. CM INFORMED PT THAT SHE WILL NEED TO PARTICIPATE FULLY WITH EACH OFFERED SESSION OF THERAPY. PT REPORTED UNDERSTANDING AND ASSURED PT SHE WILL PARTICIPATE WITH THERAPY. CM WAITING MEDICAL STABILITY WELL ADMISSION DETERMINATION / INPATIENT REHAB PRESCREENING FROM [facility]. Hot Knife Foxing Cutter: Jayy Oseguera DCPIA - Discharge Planning Initial Assessment Updated by [email or web address]: Jayy Oseguera on 10/01/18 2:22 pm * Is the patient Alert and Oriented? Yes * How many steps to enter\exit or inside your home? RAMP * PCP DR. MAHONEY * Pharmacy [facility] [address] * Preadmission Environment Home with Family * ADLs Partial Dependent * Partial ADLs (Assistance needed) Bathing * Equipment Nebulizer Oxygen Walker Wheelchair * Other Equipment OXYGEN AT NIGHT ONLY [facility]IENT - MEDICAL EQUIPMENT PROVIDER * List name and contact numbers for known caregivers / representatives who currently or will assist patient after discharge: LORA BILLS, DTR, * Verbal permission to speak to the caregivers and representatives has been obtained from the patient. Yes * Community resources currently utilized Home Health * Please name any agencies selected above. [facility], NURSING, PHYSICAL THERAPY AND AIDE SERVICE FOR BATH * Additional services required to return to the preadmission environment? No * Can the patient safely return to the preadmission environment? Yes * Has this patient been hospitalized within the prior 30 days at any hospital? Yes Coverage Notice Reviewer: REJI Oseguera Notice Issued Date-Time: 10/01/2018 12:20 Notice Type: IM Discharge Notice Notice Delivered To: Patient Relationship to Patient: Food Checkers And Cashiers Supervisor Name: Delivery Method: HAND - Hand Delivered Yuliana Days: Prior Verbal Notification: Recipient Understood Notice: Yes Recipient Signature: Yes Med Rec Note Co-signed by Attending: Coverage Notice Comment: Reviewer: REJI Oseguera Notice Issued Date-Time: 10/06/2018 9:40 Notice Type: IM Discharge Notice Notice Delivered To: Patient Relationship to Patient: Food Checkers And Cashiers Supervisor Name: Delivery Method: HAND - Hand Delivered Yuliana Days: Prior Verbal Notification: Recipient Understood Notice: Yes Recipient Signature: Yes Med Rec Note Co-signed by Attending: Coverage Notice Comment: Reviewer: REJI Oseguera Notice Issued Date-Time: 10/06/2018 9:40 Notice Type: Patient Choice Letter Notice Delivered To: Patient Relationship to Patient: Food Checkers And Cashiers Supervisor Name: Delivery Method: HAND - Hand Delivered Yuliana Days: Prior Verbal Notification: Recipient Understood Notice: Yes Recipient Signature: Yes Med Rec Note Co-signed by Attending: Coverage Notice Comment: [facility] Last DP export: 10/06/18 10:47 am Patient Name: VINAY SEYD Page [phone] at 1219 All edits/amendments must be made on the electronic document DICTATION DATE: 10/06/18 1219 HEAD CHEF: ANN 10/06/18 1219 RPT#: [id number] DC DATE: STATUS: ADM IN [facility] [address] [place] [address] END OF REPORT
[2018-10-06 12:28] LABS: % SATURATION 63 % (15-55); IRON 126 ug/dl (35-150); TOTAL IRON BIND CAPACITY 200 ug/dl (260-445); UNSAT IRON BIND CAPACITY 74 ug/dl (150-375)
[2018-10-06 12:35] VITALS: BP 115/55
[2018-10-06 15:11] VITALS: BP 141/46
--- NOTE | 2018-10-06 17:30 | NUR ---
OT NOTE: PT COMPLETED SIT TO STAND WITH MIN A SECONDARY TO SITTING IN LOW W/C. PT COMPLETED ADL MOB WITH R/W WITH SBA. PT COMPLETED TOILETING TASKS WITH SBA. THANK YOU, KELLY COCHRAN
--- NOTE | 2018-10-06 19:10 | NUR ---
BEDSIDE REPORT RECEIVED. PT IRON DONE INFUSING. S/L RIGHT UPPER ARM IV AND PLACED SWAB CAP. PT DENIES ANY OTHER NEEDS AT THIS TIME. NO S/S OF DISTRESS. NAME AND DATE PLACED ON BOARD. WILL CPOC
[2018-10-06 20:00] VITALS: BP 125/53
--- NOTE | 2018-10-06 21:14 | NUR ---
NIGHT MEDICATIONS GIVEN, PT VERBALIZED UNDERSTANDING OF MEDICATIONS. DENIES ANY QUESTIONS OR CONCERNS. PT IS AAO, DENIES ANY NEEDS. WILL CPOC
[2018-10-07] VITALS: BP 120/47
--- NOTE | 2018-10-07 02:16 | NUR ---
PT COMPLAINS OF PAIN. TYLENOL GIVEN. PT DENIES ANY OTHER NEEDS. NO S/S OF DISTRESS. WILL CPOC
--- NOTE | 2018-10-07 05:21 | NUR ---
PT RESTING IN BED. LAB IN ROOM. PT HAS NO S/S OF DISTRESS. DENIES ANY NEEDS. WILL CPOC
[2018-10-07 06:05] LABS: BASOPHILS 0.9 % (0-2); EOSINOPHILS 3.9 % (0-7); HEMATOCRIT 32.6 % (36.0-48.0); HEMOGLOBIN 10.4 g/dL (12-16); IMMATURE GRANULOCYTES 0.6 % (0-5); LYMPHOCYTES 24.8 % (15-50); MCH 31.1 pg (26.0-34.0); MCHC 31.9 g/dL (31.0-37.0); MCV 97.6 fL (80.0-100.0); MEAN PLATELET VOLUME 9.4 fL (7.4-10.4); MONOCYTES 14.3 % (2-11); NEUTROPHILS 55.5 % (40-80); RBC 3.34 10x6/uL (4.00-5.40); RDW 17.1 % (11.5-14.5)
[2018-10-07 06:11] LABS: PLATELET COUNT 334 10x3/uL (130-400)
[2018-10-07 06:18] LABS: ALBUMIN 2.7 g/dL (3.4-5.0); ANION GAP 12.4 mmol/L (8-16); BILIRUBIN - TOTAL 0.36 mg/dL (0.2-1.3); CALCIUM 7.9 mg/dL (8.5-10.1); CARBON DIOXIDE 27.1 mmol/L (21.0-32.0); POTASSIUM - SERUM 3.5 mmol/L (3.5-5.1); PROTEIN - SERUM 6.6 g/dL (6.4-8.2)
[2018-10-07 06:19] LABS: CREATININE - SERUM 0.8 mg/dL (0.6-1.3)
[2018-10-07 06:42] LABS: INR 3.54 (0.85-1.17); PROTIME 34.6 SECONDS (11.6-15.0)
[2018-10-07 06:49] VITALS: BP 138/61
--- NOTE | 2018-10-07 07:59 | NUR ---
REPORT RECEIVED. WILL CONTINUE WITH POC. PT IS AAO AND UP WITH ASSIST. RR EVEN AND UNLABORED ON RA. R.UPPER ARM PIV IS SALINE LOCKED. PT DENIES ANY NEEDS AT THIS TIME. NO S/S OF DISTRESS NOTED. WILL CTM.
[2018-10-07 08:41] VITALS: BP 155/65
[2018-10-07 12:42] VITALS: BP 155/67
--- NOTE | 2018-10-07 15:17 | NUR ---
I have reviewed this patient and I concur with the Shift Assessment completed by the Licensed Practical Nurse today this shift.
[2018-10-07] MEDS ORDERED: MORPHINE IMMEDI15 MG PO (15:28)
--- NOTE | 2018-10-07 16:13 | NUR ---
PT CURRENTLY LYING SEMI FOWLERS. CALL LIGHT W/I REACH. RR EVEN AND UNLABORED ON RA. R.UPPER ARM PIV IS SALINE LOCKED. HOME DOSE OF MORPHINE 15MG TIDP ENTERED INTO HOME MED REQ PER ILA PROCTOR REQUEST. PT DENIES ANY NEEDS. NO S/S OF DISTRESS NOTED. WILL CTM.
[2018-10-07 18:15] VITALS: BP 138/59
--- NOTE | 2018-10-07 18:37 | NUR ---
PT FOWLERS. RR UNLABORED AND EVEN. PIV SLOCKED. CALL LIGHT WITHIN REACH. PT DENIES ANY NEEDS AT THIS TIME. WILL CONT POC.
--- NOTE | 2018-10-07 19:11 | NUR ---
BED SIDE REPORT RECEIVED. PT IS AAO, CALL LIGHT IN REACH PT WATCHING TV, NO S/S OF DISTRESS. NAME AND DATE PLACED ON BOARD. PT STATES LEGS HAVE BEEN BURNING AND CAUSING DECREASED SLEEP. PT STATES SHE WAS TOLD SHE WOULD GET SOMETHING STRONGER THAN TYLENOL TODAY. WILL CHECK ORDERED. NAME AND DATE PLACED ON BOARD. BED LOW, WILL CPOC
[2018-10-07 20:00] VITALS: BP 90/60
--- NOTE | 2018-10-07 20:30 | NUR ---
SPOKE WITH SUSHMA PROCTOR REGARDING PT PAIN, TYLENOL NOT WORKING. PT RECEIVES MORPHINE AT HOME. SUSHMA PLACED ORDER FOR MORPHINE 1 MG WILL CPOC
[2018-10-08] VITALS: BP 137/73
--- NOTE | 2018-10-08 03:32 | NUR ---
PT ASLEEP. RESP EVEN AND UNLABORED. NO S/S OF DISTRESS. WILL CPOC
[2018-10-08 04:00] VITALS: BP 149/66
[2018-10-08 06:39] LABS: BASOPHILS 1.6 % (0-2); EOSINOPHILS 5.7 % (0-7); HEMATOCRIT 32.1 % (36.0-48.0); HEMOGLOBIN 10.2 g/dL (12-16); IMMATURE GRANULOCYTES 0.2 % (0-5); LYMPHOCYTES 26.8 % (15-50); MCHC 31.8 g/dL (31.0-37.0); MCV 97.6 fL (80.0-100.0); MEAN PLATELET VOLUME 9.1 fL (7.4-10.4); MONOCYTES 14.5 % (2-11); NEUTROPHILS 51.2 % (40-80); PLATELET COUNT 308 10x3/uL (130-400); RBC 3.29 10x6/uL (4.00-5.40); RDW 17.1 % (11.5-14.5)
[2018-10-08 06:46] LABS: WBC 5.1 10x3/uL (4.8-10.8)
[2018-10-08 07:13] LABS: ALBUMIN 2.7 g/dL (3.4-5.0); ALKALINE PHOSPHATASE 93 U/L (46-116); ALT (SGPT) 15 U/L (10-68); CALC OSMOLALITY 286 mosm/kg (275-300); CALCIUM 8.3 mg/dL (8.5-10.1); CARBON DIOXIDE 29.9 mmol/L (21.0-32.0); CHLORIDE - SERUM 105 mmol/L (98-107); CREATININE - SERUM 0.7 mg/dL (0.6-1.3); GLUCOSE 105 mg/dL (74-106); POTASSIUM - SERUM 3.8 mmol/L (3.5-5.1); PROTEIN - SERUM 6.6 g/dL (6.4-8.2); SODIUM 143 mmol/L (136-145); UREA NITROGEN 17 mg/dL (7-18); eGFR NON AFRICAN AMERICAN 85 mL/min (90-120)
[2018-10-08 07:24] LABS: INR 3.13 (0.85-1.17); PROTIME 31.4 SECONDS (11.6-15.0)
--- NOTE | 2018-10-08 07:44 | NUR ---
DURING BED SIDE SHIFT REPORT, PT WAS ASLEEP. WILL CONTINUE TO MONITOR.
[2018-10-08 08:03] VITALS: BP 162/71
[2018-10-08 12:06] VITALS: BP 148/71
--- NOTE | 2018-10-08 16:05 | NUR ---
OT NOTE: PT COMPLETED BED MOB TASKS SUPINE TO EOB AND SIDE TO TO SIDE ROLLING WITH SPV. PT SIMPLE GROOMING TASK WITH SPV. THANK YOU, KELLY COCHRAN
--- NOTE | 2018-10-08 16:33 | MORECARE ---
CASE MANAGEMENT DISCHARGE SUMMARY PATIENT: VINAY SYED UNIT: [id number] ADM DATE: 09/30/18 AGE: 82 : 37 SEX: F ROOM/BED: D.6029 AUTHOR: ANNY,DOC PHYSICIAN: REFERRING PHYSICIAN: HALINA HANKINS MD DATE OF SERVICE: 10/08/18 Discharge Plan Patient Name: [facility]INAY SYED [facility] [facility] 1935 Planned Disposition: Home with Home Health Anticipated Discharge Date: 10/08/18 Discharge Date: Expected LOS: 8 Initial Reviewer: [id number] Initial Review Date: 10/01/2018 Generated: 10/08/18 5:33 pm Comments DCP- Discharge Planning Updated by [email or web address]: Jayy Oseguera on 10/06/18 11:[address] Patient Name: VINAY SYED Encounter No: [id number] : 1935 Primary Insurance: MEDICARE A & B Anticipated DC Date: 10-06-2018 Planned Disposition: Home with Home Health External Planned Provider: [facility] DCP follow-up note: CM REVIEWED CHART, PT HAS BEEN DECLINED BY [facility]. CM MET WITH PT IN ROOM TO DISCUSS DISCHARGE PLANNING AND NEEDS. CM DISCUSSED AVAILABILITY OF PRISON REHAB, MEDICAL EQUIPMENT AND HOME HEALTH. PT DECLINES PRISON REHAB PLACEMENT, WANTS TO GO HOME WITH HOME HEALTH. SHE HAS USED [facility] IN THE PAST AND REQUESTED [facility]. CHOICE SIGNED. IMPORTANT MESSAGE FROM MEDICARE PROVIDED AND EXPLAINED. CM RECEIVED HOME HEALTH ORDER, CALLED [facility], , SPOKE TO [facility] AND PROVIDED REFERRAL INFORMATION. [facility] TO PROCESS AND SCHEDULE FOR HOME HEALTH RESUMPTION PT IS ACTIVE WITH THEM ALREADY. CM FAXED REFERRAL FOR [facility] TO [phone]. FOR DISCHARGE, NOTIFY [facility] AT [phone], FAX DISCHARGE INFORMATION TO [facility] AT [phone]. Jayy Oseguera CASE MANAGEMENT DCP- Discharge Planning Updated by [id number]: Jayy Oseguera on 10/01/18 1:[address] Patient Name: VINAY SYED Admission Status: ER Accout number: [id number] Admission Date: 09-30-2018 : 1935 Admission Diagnosis: Attending: HALINA HANKINS Current LOS: 1 Anticipated DC Date: 10-02-2018 Planned Disposition: Inpatient Rehab Primary Insurance: MEDICARE A & B PLANED EXTERNAL PROVIDER: [facility] Discharge Planning Comments: CM RECEIVED ORDER FOR INPATIENT REHAB PRESCREENING. CM MET WITH PT AND DAUGHTER IN ROOM TO DISCUSS DISCHARGE PLANNING AND NEEDS. VINAY SYED provided verbal consent to discuss current and ongoing needs with/in the presence of: DAUGHTERLORA. PT REPORTS LIVING AT HOME WITH HER SPOUSE. PT REPORTS SHE HAS BEEN HAVING HELP FROM HOME HEALTH AIDE FOR BATH. PT HAS NEBULIZER, HOME OXYGEN FOR NIGHTTIME USE, WALKER AND WHEELCHAIR FROM [facility] PATIENT. PT HAS NO OUTSIDE SERVICES ASSISTING IN THE HOME OTHER THAN [facility] FOR NURSING, PHYSICAL THERAPY AND TOOL ROOM GEAR MACHINE OPERATOR SERVICES FOR BATH ASSISTANCE. CM DISCUSSED AVAILABILITY OF HOME HEALTH, REHAB SERVICES AND MEDICAL EQUIPMENT. PT DENIES DISCHARGE NEEDS, REPORTS DAUGHTER WILL PICK HER UP FOR DISCHARGE HOME. IMPORTANT MESSAGE FROM MEDICARE PROVIDED AND EXPLAINED. CM DISCUSSED INPATIENT REHAB. PT REPORTS WANTING TO BE ON THE REHAB LIST FOR [facility]. CM INFORMED PT THAT SHE WILL NEED TO PARTICIPATE FULLY WITH EACH OFFERED SESSION OF THERAPY. PT REPORTED UNDERSTANDING AND ASSURED PT SHE WILL PARTICIPATE WITH THERAPY. CM WAITING MEDICAL STABILITY WELL ADMISSION DETERMINATION / INPATIENT REHAB PRESCREENING FROM [facility]. Charcoal Burner Beehive Kiln: Jayy Oseguera DCPIA - Discharge Planning Initial Assessment Updated by [id number]: Jayy Oseguera on 10/01/18 2:22 pm * Is the patient Alert and Oriented? Yes * How many steps to enter\exit or inside your home? RAMP * PCP DR. MAHONEY * Pharmacy [facility] [address] * Preadmission Environment Home with Family * ADLs Partial Dependent * Partial ADLs (Assistance needed) Bathing * Equipment Nebulizer Oxygen Walker Wheelchair * Other Equipment OXYGEN AT NIGHT ONLY [facility] PATIENT - MEDICAL EQUIPMENT PROVIDER * List name and contact numbers for known caregivers / representatives who currently or will assist patient after discharge: LORA BILLS, DTR, * Verbal permission to speak to the caregivers and representatives has been obtained from the patient. Yes * Community resources currently utilized Home Health * Please name any agencies selected above. [facility], NURSING, PHYSICAL THERAPY AND AIDE SERVICE FOR BATH * Additional services required to return to the preadmission environment? No * Can the patient safely return to the preadmission environment? Yes * Has this patient been hospitalized within the prior 30 days at any hospital? Yes Coverage Notice Reviewer: REJI Oseguera Notice Issued Date-Time: 10/01/2018 12:20 Notice Type: IM Discharge Notice Notice Delivered To: Patient Relationship to Patient: Hob Grinder Name: Delivery Method: HAND - Hand Delivered Yuliana Days: Prior Verbal Notification: Recipient Understood Notice: Yes Recipient Signature: Yes Med Rec Note Co-signed by Attending: Coverage Notice Comment: Reviewer: REJI Oseguera Notice Issued Date-Time: 10/06/2018 9:40 Notice Type: IM Discharge Notice Notice Delivered To: Patient Relationship to Patient: Hob Grinder Name: Delivery Method: HAND - Hand Delivered Yuliana Days: Prior Verbal Notification: Recipient Understood Notice: Yes Recipient Signature: Yes Med Rec Note Co-signed by Attending: Coverage Notice Comment: Reviewer: REJI Oseguera Notice Issued Date-Time: 10/06/2018 9:40 Notice Type: Patient Choice Letter Notice Delivered To: Patient Relationship to Patient: Hob Grinder Name: Delivery Method: HAND - Hand Delivered Yuliana Days: Prior Verbal Notification: Recipient Understood Notice: Yes Recipient Signature: Yes Med Rec Note Co-signed by Attending: Coverage Notice Comment: [facility] Last DP export: 10/06/18 11:19 am Patient Name: VINAY SYED Page 97420 at 1633 All edits/amendments must be made on the electronic document DICTATION DATE: 10/08/18 1633 TOURING PRODUCTION MANAGER: ANN 10/08/18 1633 RPT#: [id number] DC DATE: STATUS: ADM IN [facility] [address] [place] [address] END OF REPORT
--- NOTE | 2018-10-08 16:41 | MORECARE ---
CASE MANAGEMENT DISCHARGE SUMMARY PATIENT: VINAY SYED UNIT: [id number] ADM DATE: 09/30/18 AGE: 82 : 37 SEX: F ROOM/BED: D.9543 AUTHOR: ANNY,DOC PHYSICIAN: REFERRING PHYSICIAN: HALINA HANKINS MD DATE OF SERVICE: 10/08/18 Discharge Plan Patient Name: VINAY SYED [facility] [facility] 1935 Planned Disposition: Home with Home Health Anticipated Discharge Date: 10/08/18 Discharge Date: Expected LOS: 8 Initial Reviewer: [id number] Initial Review Date: 10/01/2018 Generated: 10/08/18 5:40 pm Comments DCP- Discharge Planning Updated by [id number]: Jayy Oseguera on 10/06/18 11:[address] Patient Name: VINAY SYED Encounter No: [id number] : 1935 Primary Insurance: MEDICARE A & B Anticipated DC Date: 10-06-2018 Planned Disposition: Home with Home Health External Planned Provider: [facility] DCP follow-up note: CM REVIEWED CHART, PT HAS BEEN DECLINED BY [facility]. CM MET WITH PT IN ROOM TO DISCUSS DISCHARGE PLANNING AND NEEDS. CM DISCUSSED AVAILABILITY OF [facility], MEDICAL EQUIPMENT AND HOME HEALTH. PT DECLINES [facility] RE[facility]AB PLACEMENT, WANTS TO GO HOME WITH HOME HEALTH. SHE HAS USED [facility] IN THE PAST AND REQUESTED [facility]. CHOICE SIGNED. IMPORTANT MESSAGE FROM MEDICARE PROVIDED AND EXPLAINED. CM RECEIVED HOME HEALTH ORDER, CALLED [facility], , SPOKE TO [facility] AND PROVIDED REFERRAL INFORMATION. [facility] TO PROCESS AND SCHEDULE FOR HOME HEALTH RESUMPTION PT IS ACTIVE WITH THEM ALREADY. CM FAXED REFERRAL FOR [facility] TO [phone]. FOR DISCHARGE, NOTIFY [facility] AT [phone], FAX DISCHARGE INFORMATION TO [facility] AT [phone]. Jayy Oseguera CASE MANAGEMENT DCP- Discharge Planning Updated by [id number]: Jayy Oseguera on 10/01/18 1:[address] Patient Name: VINAY SYED Admission Status: ER Accout number: [id number] Admission Date: 09-30-2018 : 1935 Admission Diagnosis: Attending: HALINA HANKINS Current LOS: 1 Anticipated DC Date: 10-02-2018 Planned Disposition: Inpatient Rehab Primary Insurance: MEDICARE A & B PLANED EXTERNAL PROVIDER: [facility] Discharge Planning Comments: CM RECEIVED ORDER FOR INPATIENT REHAB PRESCREENING. CM MET WITH PT AND DAUGHTER IN ROOM TO DISCUSS DISCHARGE PLANNING AND NEEDS. VINAY SYED provided verbal consent to discuss current and ongoing needs with/in the presence of: DAUGHTERLORA. PT REPORTS LIVING AT HOME WITH HER SPOUSE. PT REPORTS SHE HAS BEEN HAVING HELP FROM HOME HEALTH AIDE FOR BATH. PT HAS NEBULIZER, HOME OXYGEN FOR NIGHTTIME USE, WALKER AND WHEELCHAIR FROM [facility] PATIENT. PT HAS NO OUTSIDE SERVICES ASSISTING IN THE HOME OTHER THAN [facility] FOR NURSING, PHYSICAL THERAPY AND GEOLOGY PROFESSOR SERVICES FOR BATH ASSISTANCE. CM DISCUSSED AVAILABILITY OF HOME HEALTH, REHAB SERVICES AND MEDICAL EQUIPMENT. PT DENIES DISCHARGE NEEDS, REPORTS DAUGHTER WILL PICK HER UP FOR DISCHARGE HOME. IMPORTANT MESSAGE FROM MEDICARE PROVIDED AND EXPLAINED. CM DISCUSSED INPATIENT REHAB. PT REPORTS WANTING TO BE ON THE REHAB LIST FOR [facility]. CM INFORMED PT THAT SHE WILL NEED TO PARTICIPATE FULLY WITH EACH OFFERED SESSION OF THERAPY. PT REPORTED UNDERSTANDING AND ASSURED PT SHE WILL PARTICIPATE WITH THERAPY. CM WAITING MEDICAL STABILITY WELL ADMISSION DETERMINATION / INPATIENT REHAB PRESCREENING FROM [facility]. Boat Joiner: Jayy Oseguera DCPIA - Discharge Planning Initial Assessment Updated by [email or web address]: Jayy Oseguera on 10/01/18 2:22 pm * Is the patient Alert and Oriented? Yes * How many steps to enter\exit or inside your home? RAMP * PCP DR. MAHONEY * Pharmacy [facility] [address] * Preadmission Environment Home with Family * ADLs Partial Dependent * Partial ADLs (Assistance needed) Bathing * Equipment Nebulizer Oxygen Walker Wheelchair * Other Equipment OXYGEN AT NIGHT ONLY [facility] PATIENT - MEDICAL EQUIPMENT PROVIDER * List name and contact numbers for known caregivers / representatives who currently or will assist patient after discharge: LORA BILLS, DTR, * Verbal permission to speak to the caregivers and representatives has been obtained from the patient. Yes * Community resources currently utilized Home Health * Please name any agencies selected above. [facility], NURSING, PHYSICAL THERAPY AND AIDE SERVICE FOR BATH * Additional services required to return to the preadmission environment? No * Can the patient safely return to the preadmission environment? Yes * Has this patient been hospitalized within the prior 30 days at any hospital? Yes Coverage Notice Reviewer: REJI Oseguera Notice Issued Date-Time: 10/06/2018 9:40 Notice Type: Patient Choice Letter Notice Delivered To: Patient Relationship to Patient: Rn Pacu Name: Delivery Method: HAND - Hand Delivered Yuliana Days: Prior Verbal Notification: Recipient Understood Notice: Yes Recipient Signature: Yes Med Rec Note Co-signed by Attending: Coverage Notice Comment: [facility] Reviewer: REJI Oseguera Notice Issued Date-Time: 10/06/2018 9:40 Notice Type: IM Discharge Notice Notice Delivered To: Patient Relationship to Patient: Rn Pacu Name: Delivery Method: HAND - Hand Delivered Yuliana Days: Prior Verbal Notification: Recipient Understood Notice: Yes Recipient Signature: Yes Med Rec Note Co-signed by Attending: Coverage Notice Comment: Reviewer: REJI Oseguera Notice Issued Date-Time: 10/01/2018 12:20 Notice Type: IM Discharge Notice Notice Delivered To: Patient Relationship to Patient: Rn Pacu Name: Delivery Method: HAND - Hand Delivered Yuliana Days: Prior Verbal Notification: Recipient Understood Notice: Yes Recipient Signature: Yes Med Rec Note Co-signed by Attending: Coverage Notice Comment: Last DP export: 10/08/18 3:33 p Patient Name: VINAY SYED Page 74437 at 1641 All edits/amendments must be made on the electronic document DICTATION DATE: 10/08/18 1640 K9 HANDLER: ANN 10/08/18 1640 RPT#: [id number] DC DATE: STATUS: ADM IN [facility] [address] [place] [address] END OF REPORT
--- NOTE | 2018-10-08 16:49 | MORECARE ---
CASE MANAGEMENT DISCHARGE SUMMARY PATIENT: VINAY SYED UNIT: [id number] ADM DATE: 09/30/18 AGE: 82 : 37 SEX: F ROOM/BED: D.0742 AUTHOR: KYE MCCORMICK PHYSICIAN: REFERRING PHYSICIAN: HALINA HANKINS MD DATE OF SERVICE: 10/08/18 Discharge Plan Patient Name: VINAY SYED [facility] [facility] 1935 Planned Disposition: Home with Home Health Anticipated Discharge Date: 10/08/18 Discharge Date: Expected LOS: 8 Initial Reviewer: [id number] Initial Review Date: 10/01/2018 Generated: 10/08/18 5:49 pm Comments DCP- Discharge Planning Updated by [id number]: Jayy Oseguera on 10/08/18 3:[address] Patient Name: VINAY SYED Encounter No: [id number] : 1935 Primary Insurance: MEDICARE A & B Anticipated DC Date: 10-08-2018 Planned Disposition: Home with Home Health External Planned Provider:[facility] DCP follow-up note: CM RECEIVED DISCHARGE ORDER, CALLED [facility], , SPOKE TO MARK WHO ADVISED PT IS ON SCHEDULE FOR HOME HEALTH RESUMPTION TOMORROW. CM FAXED DISCHARGE INFORMATION TO [facility] AT [phone]. COAL TRAMMER NURSE NOTIFIED. Jayy Oseguera CASE MANAGEMENT DCP- Discharge Planning Updated by [id number]: Jayy Oseguera on 10/06/18 11:[address] Patient Name: VINAY SYED Encounter No: [id number] : 1935 Primary Insurance: MEDICARE A & B Anticipated DC Date: 10-06-2018 Planned Disposition: Home with Home Health External Planned Provider: [facility] DCP follow-up note: CM REVIEWED CHART, PT HAS BEEN DECLINED BY [facility]. CM MET WITH PT IN ROOM TO DISCUSS DISCHARGE PLANNING AND NEEDS. CM DISCUSSED AVAILABILITY OF LONG-TERM REHAB, MEDICAL EQUIPMENT AND HOME HEALTH. PT DECLINES LONG-TERM REHAB PLACEMENT, WANTS TO GO HOME WITH HOME HEALTH. SHE HAS USED [facility] IN THE PAST AND REQUESTED [facility]. CHOICE SIGNED. IMPORTANT MESSAGE FROM MEDICARE PROVIDED AND EXPLAINED. CM RECEIVED HOME HEALTH ORDER, CALLED [facility], , SPOKE TO [facility] AND PROVIDED REFERRAL INFORMATION. [facility] TO PROCESS AND SCHEDULE FOR HOME HEALTH RESUMPTION PT IS ACTIVE WITH THEM ALREADY. CM FAXED REFERRAL FOR [facility] TO [phone]. FOR DISCHARGE, NOTIFY [facility] AT [phone], FAX DISCHARGE INFORMATION TO [facility] AT [phone]. Jayy Oseguera, CASE MANAGEMENT DCP- Discharge Planning Updated by [email or web address]: Jayy Oseguera on 10/01/18 1:[address] Patient Name: VINAY SYED Admission Status: ER Accout number: [id number] Admission Date: 09-30-2018 : 1935 Admission Diagnosis: Attending: HALINA HANKINS Current LOS: 1 Anticipated DC Date: 10-02-2018 Planned Disposition: Inpatient Rehab Primary Insurance: MEDICARE A & B PLANED EXTERNAL PROVIDER: [facility] Discharge Planning Comments: CM RECEIVED ORDER FOR INPATIENT REHAB PRESCREENING. CM MET WITH PT AND DAUGHTER IN ROOM TO DISCUSS DISCHARGE PLANNING AND NEEDS. VINAY SYED provided verbal consent to discuss current and ongoing needs with/in the presence of: DAUGHTERLORA. PT REPORTS LIVING AT HOME WITH HER SPOUSE. PT REPORTS SHE HAS BEEN HAVING HELP FROM HOME HEALTH AIDE FOR BATH. PT HAS NEBULIZER, HOME OXYGEN FOR NIGHTTIME USE, WALKER AND WHEELCHAIR FROM [facility] PATIENT. PT HAS NO OUTSIDE SERVICES ASSISTING IN THE HOME OTHER THAN [facility] FOR NURSING, PHYSICAL THERAPY AND STRENGTH AND CONDITIONING COACH SERVICES FOR BATH ASSISTANCE. CM DISCUSSED AVAILABILITY OF HOME HEALTH, REHAB SERVICES AND MEDICAL EQUIPMENT. PT DENIES DISCHARGE NEEDS, REPORTS DAUGHTER WILL PICK HER UP FOR DISCHARGE HOME. IMPORTANT MESSAGE FROM MEDICARE PROVIDED AND EXPLAINED. CM DISCUSSED INPATIENT REHAB. PT REPORTS WANTING TO BE ON THE REHAB LIST FOR [place]. CM INFORMED PT THAT SHE WILL NEED TO PARTICIPATE FULLY WITH EACH OFFERED SESSION OF THERAPY. PT REPORTED UNDERSTANDING AND ASSURED PT SHE WILL PARTICIPATE WITH THERAPY. CM WAITING MEDICAL STABILITY WELL ADMISSION DETERMINATION / INPATIENT REHAB PRESCREENING FROM [facility]. Head Doffer: Jayy Oseguera DCPIA - Discharge Planning Initial Assessment Updated by [email or web address]: Jayy Oseguera on 10/01/18 2:22 pm * Is the patient Alert and Oriented? Yes * How many steps to enter\exit or inside your home? RAMP * PCP DR. MAHONEY * Pharmacy [facility] [address] * Preadmission Environment Home with Family * ADLs Partial Dependent * Partial ADLs (Assistance needed) Bathing * Equipment Nebulizer Oxygen Walker Wheelchair * Other Equipment OXYGEN AT NIGHT ONLY [facility] PATIENT - MEDICAL EQUIPMENT PROVIDER * List name and contact numbers for known caregivers / representatives who currently or will assist patient after discharge: LORA BILLS, DTR, * Verbal permission to speak to the caregivers and representatives has been obtained from the patient. Yes * Community resources currently utilized Home Health * Please name any agencies selected above. [facility], NURSING, PHYSICAL THERAPY AND AIDE SERVICE FOR BATH * Additional services required to return to the preadmission environment? No * Can the patient safely return to the preadmission environment? Yes * Has this patient been hospitalized within the prior 30 days at any hospital? Yes Coverage Notice Reviewer: REJI Oseguera Notice Issued Date-Time: 10/06/2018 9:40 Notice Type: Patient Choice Letter Notice Delivered To: Patient Relationship to Patient: Production Lead Name: Delivery Method: HAND - Hand Delivered Yuliana Days: Prior Verbal Notification: Recipient Understood Notice: Yes Recipient Signature: Yes Med Rec Note Co-signed by Attending: Coverage Notice Comment: [facility] Reviewer: REJI Oseguera Notice Issued Date-Time: 10/06/2018 9:40 Notice Type: IM Discharge Notice Notice Delivered To: Patient Relationship to Patient: Production Lead Name: Delivery Method: HAND - Hand Delivered Yuliana Days: Prior Verbal Notification: Recipient Understood Notice: Yes Recipient Signature: Yes Med Rec Note Co-signed by Attending: Coverage Notice Comment: Reviewer: [id number] Oseguera Notice Issued Date-Time: 10/01/2018 12:20 Notice Type: IM Discharge Notice Notice Delivered To: Patient Relationship to Patient: Production Lead Name: Delivery Method: HAND - Hand Delivered Yuliana Days: Prior Verbal Notification: Recipient Understood Notice: Yes Recipient Signature: Yes Med Rec Note Co-signed by Attending: Coverage Notice Comment: Last DP export: 10/08/18 3:41 p Patient Name: VINAY SYED Page 33259 at 1649 All edits/amendments must be made on the electronic document DICTATION DATE: 10/08/181648 MAJOR SALES ASSOCIATE: ANN 10/08/181648 RPT#: [id number] DC DATE: STATUS: ADM IN [facility] [address] [place] [address] END OF REPORT
--- NOTE | 2018-10-08 17:59 | NUR ---
IV REMOVED WITH IV CATH AND TIP INTACT.DC INSTRUCTIONS GIVEN TO PATIENT AND FAMILY. BOTH VERBALIZE UNDERSTANDING. TO CAR VIA WC.
--- NOTE | 2018-10-12 18:38 | EC ---
PATIENT:VINAY SYED DATE OF SERVICE: 09/30/18 SEX: F MEDICAL RECORD: [id number] DATE OF : [birth year] LOCATION:D.M2 D.212 AGE OF PATIENT: 82 ADMISSION DATE: 09/30/18 REFERRING PHYSICIAN: INTERPRETING PHYSICIAN: CYRUS KELLY MD ECHOCARDIOGRAM REPORT ECHO CHARGES 4 ECHO COMPLETE Date: 09/30/18 CLINICAL DIAGNOSIS: CHF ECHOCARDIOGRAPHIC MEASUREMENTS (adult normal given) AC root (d.<3.7cm) 3.0 cm LV Septum d (<1.2 cm> 1.1 cm Valve Excursion 1.2 cm LV Septum (systole) 1.5 cm Left Atria (s.<4.0cm> 4.2 cm LVPW d(<1.2cm) 1.1 cm RV (d.<2.3cm) 2.0 cm LVPW (sytole) 1.7 cm LV diastole(<5.6CM) 5.3 cm MV E-F(>70mm/sec) cm LV systole 3.3 cm LVOT Diameter 1.6 cm MV exc.(>10mm) cm Est.ejection fraction (50-75%) % DOPPLER: LVIT cm/sec A 74.0 cm/sec E 110 cm/sec LA cm/sec RVSP 39.0 mmHg LVOT 87.0 cm/sec AOP1/2T m/s Asc. Ao 207 cm/sec RVOT 74.0 cm/sec RA cm/sec PA 122 cm/sec AV Gradient Peak 17.1 mmHg AV Mean 10.0 mmHg AV Area 0.7 cm MV Gradient Peak 6.5 mmHg MV Mean 2.1 mmHg MV Area cm COMMENTS: Media Supervisor: Isamar CORTEZOE Cellophane Bag Machine Operator: 1 Dr. Kelly TAPE# PACS Pericardial Effusion N DATE OF SERVICE: 09/30/2018 FINDINGS: 1. Left ventricular chamber size is within normal limits. Left ventricular systolic function is normal. Overall ejection fraction is estimated at 55%. 2. Left atrium, right atrium, and right ventricular chamber sizes are dilated. Left atrium measures 4.2 cm. 3. Valvular structures have normal structure and motion. 4. Doppler interrogation reveals moderate mitral regurgitation and moderate tricuspid regurgitation. No other valvular insufficiency or stenosis. ECHOCARDIOGRAM REPORT [id number] VINAY SYED Pulmonary systolic pressure is estimated at 39 mmHg. 5. No evidence of pericardial effusion or left ventricular thrombus. TRANSINT:[id number] Voice Confirmation ID: [id number] DOCUMENT ID: [id number] CYRUS KELLY MD at 1838 CC: [id number] DICTATION DATE: 09/30/18 1739 DIE HOLDER: 09/30/181936 DIS IN 10/08/18 [place] [id number] [place] [id number]
== END 2018-10-08 18:26 | disposition home health service (06) | DRG 811 ==
LOC: D.ER 20:32 → OBSVTIME 09-30 01:00 → D.M2 09-30 01:00
PROVIDERS: Family Medicine; Family Medicine Adult Medicine; ADMIT Internal Medicine Nephrology; ATTEND Internal Medicine Nephrology
DX: D50.9 Iron deficiency anemia, unspecified (principal); I50.31 Acute diastolic (congestive) heart failure; N17.9 Acute kidney failure, unspecified; D68.9 Coagulation defect, unspecified; R54 Age-related physical debility; E87.6 Hypokalemia; E78.5 Hyperlipidemia, unspecified; I25.10 Atherosclerotic heart disease of native coronary artery without angina pectoris; I11.0 Hypertensive heart disease with heart failure; J44.9 Chronic obstructive pulmonary disease, unspecified; K21.9 Gastro-esophageal reflux disease without esophagitis; Z86.718 Personal history of other venous thrombosis and embolism; Z86.711 Personal history of pulmonary embolism; Z79.01 Long term (current) use of anticoagulants

== ENCOUNTER 2018-10-22 16:52 | Inpatient (IN) | payer MEDICARE, OTHER ==
[~2018-10-22] VITALS: Ht 156.2 cm; Wt 82.1 kg
[~2018-10-22 16:52] MED LIST changes: +COUMADIN5 MG PO; +MORPHINE IMMEDI15 MG PO
[2018-10-22 17:30] VITALS: BP 107/62
[2018-10-22 17:41] LABS: BASOPHILS 1.1 % (0-2); EOSINOPHILS 4.8 % (0-7); HEMOGLOBIN 11.9 g/dL (12-16); IMMATURE GRANULOCYTES 0.1 % (0-5); LYMPHOCYTES 18.8 % (15-50); MCH 32.7 pg (26.0-34.0); MCHC 32.2 g/dL (31.0-37.0); MCV 101.6 fL (80.0-100.0); MEAN PLATELET VOLUME 9.2 fL (7.4-10.4); MONOCYTES 14.3 % (2-11); NEUTROPHILS 60.9 % (40-80); PLATELET COUNT 262 10x3/uL (130-400); RBC 3.64 10x6/uL (4.00-5.40); RDW 15.6 % (11.5-14.5)
[2018-10-22 17:53] LABS: INR 1.19 (0.85-1.17); PROTIME 14.6 SECONDS (11.6-15.0)
[2018-10-22 17:54] LABS: APTT 33.4 SECONDS (22.8-39.4)
[2018-10-22 18:11] LABS: ALBUMIN 2.9 g/dL (3.4-5.0); ALKALINE PHOSPHATASE 91 U/L (46-116); ALT (SGPT) 8 U/L (10-68); BILIRUBIN - TOTAL 0.57 mg/dL (0.2-1.3); CALC OSMOLALITY 287 mosm/kg (275-300); CALCIUM 8.5 mg/dL (8.5-10.1); CARBON DIOXIDE 31.3 mmol/L (21.0-32.0); CHLORIDE - SERUM 105 mmol/L (98-107); CREATININE - SERUM 1.6 mg/dL (0.6-1.3); GLUCOSE 110 mg/dL (74-106); POTASSIUM - SERUM 4.3 mmol/L (3.5-5.1); PROTEIN - SERUM 6.6 g/dL (6.4-8.2); SODIUM 143 mmol/L (136-145); UREA NITROGEN 19 mg/dL (7-18); eGFR NON AFRICAN AMERICAN 33 mL/min (90-120)
[2018-10-22 18:23] LABS: PRO BNP 591 pg/mL (0-450)
[2018-10-22 18:25] LABS: TROPONIN-I < 0.017 ng/mL (0.000-0.060)
[2018-10-22 18:44] VITALS: BP 108/64
--- NOTE | 2018-10-22 18:45 | NUR ---
RESTING IN BED WITH EYES CLOSED. AROUSES EASILY. NO C/O RESP 8 BPM.
--- NOTE | 2018-10-22 19:09 | NUR ---
BS REPORT TO IVANA GARCIA AND IVANA GUADALUPE BY SBAR FORMAT
--- NOTE | 2018-10-22 19:13 | NUR ---
REPORT TO IVANA KEANE BY SBAR FORMAT
[2018-10-22 19:45] VITALS: BP 116/67; BMI 33.7
[2018-10-22 20:00] VITALS: BP 116/67
[2018-10-23] VITALS: BP 122/57
[2018-10-23 04:00] VITALS: BP 114/79
[2018-10-23 06:48] LABS: ANION GAP 9.6 mmol/L (8-16); CALCIUM 8.4 mg/dL (8.5-10.1); CARBON DIOXIDE 30.5 mmol/L (21.0-32.0); CREATININE - SERUM 1.7 mg/dL (0.6-1.3); MAGNESIUM - SERUM 1.6 mg/dL (1.8-2.4); PHOSPHOROUS 4.8 mg/dL (2.5-4.9); POTASSIUM - SERUM 4.1 mmol/L (3.5-5.1)
[2018-10-23 07:12] LABS: BASOPHILS 0.6 % (0-2); EOSINOPHILS 4.9 % (0-7); HEMATOCRIT 33.2 % (36.0-48.0); HEMOGLOBIN 10.5 g/dL (12-16); IMMATURE GRANULOCYTES 0.2 % (0-5); MCH 32.2 pg (26.0-34.0); MCHC 31.6 g/dL (31.0-37.0); MCV 101.8 fL (80.0-100.0); MEAN PLATELET VOLUME 9.4 fL (7.4-10.4); MONOCYTES 18.2 % (2-11); NEUTROPHILS 51.1 % (40-80); PLATELET COUNT 269 10x3/uL (130-400); RBC 3.26 10x6/uL (4.00-5.40); RDW 15.7 % (11.5-14.5); WBC 6.3 10x3/uL (4.8-10.8)
[2018-10-23 08:00] VITALS: BP 110/72
--- NOTE | 2018-10-23 08:43 | NUR ---
PATIENT DROWSEY BUT AROUSES TO VOICE AND TOLERATED CL DIET WITH ASSISTANCE. PATIENT DENIES PAIN AND IS ORIENTED X3. CL IN REACH
--- NOTE | 2018-10-23 10:05 | NUR ---
PATIENT MORE EASY TO AROUSE, AND HAD TO REMIND PATIENT WHY SHE IS HOSPITALIZED AND WHERE.
[2018-10-23 10:36] LABS: COLOR YELLOW (YELLOW)
[2018-10-23 10:37] LABS: APPEARANCE SL CLDY (CLEAR); NITRITE NEGATIVE (NEGATIVE); PROTEIN NEGATIVE (NEGATIVE); SPECIFIC GRAVITY 1.015 (1.005-1.020)
[2018-10-23 10:40] LABS: BILIRUBIN NEGATIVE (NEGATIVE); GLUCOSE NEGATIVE (NEGATIVE); KETONE NEGATIVE (NEGATIVE)
[2018-10-23 10:41] LABS: BACTERIA MANY /hpf (NONE SEEN); EPITHELIAL CELLS 0-5 /hpf (0-5); YEAST <1+ /hpf (NONE SEEN)
--- NOTE | 2018-10-23 16:49 | NUR ---
PATIENT AWAKE AND ORIENTED, TOLERATING CLEAR LIQUID DIET WITH SET UP ONLY, PATIENT WAS ABLE TO FEED HERSELF. O2 SAT 98% ON 2L/NC
[2018-10-23 20:00] VITALS: BP 140/50
[2018-10-24] VITALS: BP 129/61
[2018-10-24 04:11] VITALS: BP 139/63
[2018-10-24] MEDS ORDERED: GABAPENTIN100 MG PO (05:08)
[2018-10-24] MEDS ORDERED: SINGULAIR10 MG PO (05:09)
[2018-10-24 06:42] LABS: BASOPHILS 0.7 % (0-2); EOSINOPHILS 3.8 % (0-7); HEMOGLOBIN 9.5 g/dL (12-16); IMMATURE GRANULOCYTES 0.2 % (0-5); LYMPHOCYTES 21.9 % (15-50); MCH 31.5 pg (26.0-34.0); MCHC 31.7 g/dL (31.0-37.0); MEAN PLATELET VOLUME 9.2 fL (7.4-10.4); NEUTROPHILS 56.4 % (40-80); RBC 3.02 10x6/uL (4.00-5.40); RDW 14.6 % (11.5-14.5); WBC 5.8 10x3/uL (4.8-10.8)
[2018-10-24 06:52] LABS: MCV 99.3 fL (80.0-100.0); PLATELET COUNT 201 10x3/uL (130-400)
[2018-10-24 07:02] LABS: ANION GAP 7.4 mmol/L (8-16); CALCIUM 8.1 mg/dL (8.5-10.1); CARBON DIOXIDE 31.4 mmol/L (21.0-32.0); MAGNESIUM - SERUM 1.4 mg/dL (1.8-2.4); POTASSIUM - SERUM 3.8 mmol/L (3.5-5.1)
[2018-10-24 07:06] LABS: CREATININE - SERUM 0.9 mg/dL (0.6-1.3); PHOSPHOROUS 2.7 mg/dL (2.5-4.9)
--- NOTE | 2018-10-24 07:45 | NUR ---
PT CONFUSED. RESP EVEN AND NONLABORED HRR LUNG SOUNDS CLEAR IV TO RIGHT WRIST PATENT AND INTACT AT THIS TIME. SRX2 BED AT LOWEST SETTING AND LOCKED CALL LIGHT WITHIN REACH WILL CONTINUE TO MONITOR
[2018-10-24 09:34] VITALS: BP 150/90
[2018-10-24 13:46] VITALS: BP 123/55
[2018-10-24 13:58] VITALS: BP 107/58
--- NOTE | 2018-10-24 19:20 | NUR ---
PATIENT RESTING IN BED AT THIS TIME. PATIENT REQUESTED SUPPLIES FOR ORAL CARE. PATIENT DENIES OTHER NEEDS AT THIS TIME. BED IN LOWEST POSITION, CALL LIGHT WITHIN REACH, AND BED ALARM ON. ENCOURAGED THE PATIENT TO CALL IF SHE HAS NEEDS. WILL CONTINUE TO MONITOR.
--- NOTE | 2018-10-24 19:48 | NUR ---
PATIENT RESTING IN BED WITH NO S/S OF DISTRESS AND DENIES NEEDS AT THIS TIME. BED IN LOWEST POSITION AND CALL LIGHT WITHIN REACH. ENCOURAGED THE PATIENT TO CALL IF SHE HAS NEEDS. WILL CONTINUE TO MONITOR.
[2018-10-24 20:00] VITALS: BP 150/62
[2018-10-25] VITALS: BP 143/65
[2018-10-25 04:00] VITALS: BP 149/64
[2018-10-25 06:30] LABS: BASOPHILS 0.9 % (0-2); EOSINOPHILS 6.8 % (0-7); HEMATOCRIT 31.1 % (36.0-48.0); IMMATURE GRANULOCYTES 0.2 % (0-5); LYMPHOCYTES 25.7 % (15-50); MCH 31.7 pg (26.0-34.0); MCHC 32.2 g/dL (31.0-37.0); MCV 98.7 fL (80.0-100.0); MEAN PLATELET VOLUME 9.5 fL (7.4-10.4); MONOCYTES 14.1 % (2-11); NEUTROPHILS 52.3 % (40-80); PLATELET COUNT 183 10x3/uL (130-400); RBC 3.15 10x6/uL (4.00-5.40); RDW 14.6 % (11.5-14.5); WBC 4.4 10x3/uL (4.8-10.8)
[2018-10-25 06:37] LABS: INR 1.71 (0.85-1.17); PROTIME 19.4 SECONDS (11.6-15.0)
[2018-10-25 06:46] LABS: ANION GAP 9.4 mmol/L (8-16); CALCIUM 8.2 mg/dL (8.5-10.1); CARBON DIOXIDE 30.2 mmol/L (21.0-32.0); CREATININE - SERUM 0.8 mg/dL (0.6-1.3); MAGNESIUM - SERUM 1.3 mg/dL (1.8-2.4); PHOSPHOROUS 2.8 mg/dL (2.5-4.9); POTASSIUM - SERUM 3.6 mmol/L (3.5-5.1)
--- NOTE | 2018-10-25 07:50 | NUR ---
PT SITTING IN BED AOX4 RESP EVEN AND NONLABORED PT DENIES NEEDS AT THIS TIME IV TO RIGHT WRIST PATENT AND INTACT AT THIS TIME. SRX2 BED AT LOWEST SETTING CALL LIGHT WITHIN REACH WILL CONTINUE TO MONITOR
[2018-10-25 08:40] VITALS: BP 137/77
[2018-10-25 19:40] VITALS: BP 148/73
[2018-10-25 23:30] VITALS: BP 152/73
[2018-10-26 04:38] VITALS: BP 162/82
--- NOTE | 2018-10-26 07:02 | NUR ---
REPORT RECIEVED. PT LYING SEMI FOWLERS IN BED ON IPAD. PT HAS R AC SL PIV. PT WEARING 2L NC AND RUNNING 98 ON CONTINUOUS PULSE OX. RR EVEN AND UNLABORED. NO DISTRESS NOTED. PT HAS NO NEEDS AT THIS TIME. WILL CTM.
[2018-10-26 07:47] VITALS: BP 152/81
[2018-10-26 07:48] LABS: BASOPHILS 0.8 % (0-2); EOSINOPHILS 5.2 % (0-7); HEMOGLOBIN 10.1 g/dL (12-16); IMMATURE GRANULOCYTES 0.2 % (0-5); MCH 31.6 pg (26.0-34.0); MCHC 32.6 g/dL (31.0-37.0); MCV 96.9 fL (80.0-100.0); MEAN PLATELET VOLUME 9.6 fL (7.4-10.4); MONOCYTES 13.1 % (2-11); NEUTROPHILS 59.7 % (40-80); PLATELET COUNT 209 10x3/uL (130-400); RDW 14.4 % (11.5-14.5); WBC 4.8 10x3/uL (4.8-10.8)
[2018-10-26 07:59] LABS: CALC OSMOLALITY 278 mosm/kg (275-300); CALCIUM 8.3 mg/dL (8.5-10.1); CARBON DIOXIDE 28.8 mmol/L (21.0-32.0); CHLORIDE - SERUM 105 mmol/L (98-107); CREATININE - SERUM 0.7 mg/dL (0.6-1.3); GLUCOSE 93 mg/dL (74-106); MAGNESIUM - SERUM 1.3 mg/dL (1.8-2.4); PHOSPHOROUS 2.9 mg/dL (2.5-4.9); POTASSIUM - SERUM 3.3 mmol/L (3.5-5.1); SODIUM 141 mmol/L (136-145); eGFR NON AFRICAN AMERICAN 85 mL/min (90-120)
[2018-10-26 08:03] LABS: D-DIMER-QUANTITATIVE 1.11 ug/mLFEU (0.20-0.54); INR 2.65 (0.85-1.17); PROTIME 27.5 SECONDS (11.6-15.0)
[2018-10-26 08:06] LABS: UREA NITROGEN 6 mg/dL (7-18)
--- NOTE | 2018-10-26 12:15 | NUR ---
Rehab Prescreening Consult recieved and the patient has been visited. She wants to go home because her spouse who was just in the rehab is there. She has HH and her daughter has moved in with them to assist as well. I explained to her she has a 30 day window to admit to the ARU from home if she gets home and feels she needs more therapy. Discussed with the CM Corrie Benites RN. Leigha Gresham RN Clinical Liaison, Rehab
[2018-10-26 14:02] VITALS: Ht 156.2 cm; Wt 82.1 kg
[2018-10-26 16:49] VITALS: BP 160/69
--- NOTE | 2018-10-26 16:49 | NUR ---
OT NOTE: PT COMPLETED BED MOB TASKS WITH MIN A/CGA. PT COMPLETED BUE AROM EXS. THANK YOU, KELLY COCHRAN
--- NOTE | 2018-10-26 19:21 | NUR ---
PATIENT RESTING IN BED AND DENIES NEEDS AT THIS TIME. BED IN LOWEST POSITION, CALL LIGHT WITHIN REACH, AND BED ALARM ON. ENCOURAGED THE PATIENT TO CALL IF SHE HAS NEEDS. WILL CONTINUE TO MONITOR.
[2018-10-26 19:35] VITALS: BP 158/74
--- NOTE | 2018-10-26 22:39 | NUR ---
ASSISTED PATIENT FROM THE CHAIR BACK TO BED PER HER REQUEST. PATIENT DENIES OTHER NEEDS AT THIS TIME. BED IN LOWEST POSITION AND CALL LIGHT WITHIN REACH. ENCOURAGED THE PATIENT TO CALL IF SHE HAS NEEDS. WILL CONTINUE TO MONITOR.
[2018-10-27 00:22] VITALS: BP 152/80
[2018-10-27 04:00] VITALS: BP 155/67
[2018-10-27 06:42] LABS: INR 3.01 (0.85-1.17); PROTIME 30.4 SECONDS (11.6-15.0)
[2018-10-27 07:11] LABS: CALCIUM 8.2 mg/dL (8.5-10.1); CARBON DIOXIDE 32.9 mmol/L (21.0-32.0); CREATININE - SERUM 0.6 mg/dL (0.6-1.3); GLUCOSE 88 mg/dL (74-106); PHOSPHOROUS 2.7 mg/dL (2.5-4.9); UREA NITROGEN 7 mg/dL (7-18); eGFR NON AFRICAN AMERICAN > 90 mL/min (90-120)
[2018-10-27 07:12] LABS: MAGNESIUM - SERUM 1.8 mg/dL (1.8-2.4)
[2018-10-27 07:32] LABS: BASOPHILS 0.6 % (0-2); EOSINOPHILS 3.7 % (0-7); HEMATOCRIT 31.9 % (36.0-48.0); HEMOGLOBIN 10.5 g/dL (12-16); LYMPHOCYTES 22.8 % (15-50); MCH 31.9 pg (26.0-34.0); MCHC 32.9 g/dL (31.0-37.0); MONOCYTES 12.8 % (2-11); NEUTROPHILS 60.1 % (40-80); PLATELET COUNT 234 10x3/uL (130-400); RBC 3.29 10x6/uL (4.00-5.40); RDW 14.5 % (11.5-14.5); WBC 4.9 10x3/uL (4.8-10.8)
--- NOTE | 2018-10-27 07:46 | NUR ---
PT SITTING UP IN BED, EYES CLOSED. ASSESSMENT COMPLETE. DENIES PAIN AT THIS TIME. RR EVEN AND UNLABORED. WILL CONTINUE TO MONITOR.
[2018-10-27 08:00] VITALS: BP 165/77
[2018-10-27 08:02] LABS: CALC OSMOLALITY 281 mosm/kg (275-300); SODIUM 143 mmol/L (136-145)
[2018-10-27 08:03] LABS: CHLORIDE - SERUM 104 mmol/L (98-107)
--- NOTE | 2018-10-27 08:42 | MORECARE ---
CASE MANAGEMENT DISCHARGE SUMMARY PATIENT: VINAY SYED UNIT: [id number] ADM DATE: 10/24/18 AGE: 82 : 37 SEX: F ROOM/BED: D.1204 AUTHOR: KYE MCCORMICK PHYSICIAN: REFERRING PHYSICIAN: CANDIS MENARD MD DATE OF SERVICE: 10/27/18 Discharge Plan Patient Name: VINAY SYED Facility: [facility]:[place] : 1935 Planned Disposition: Home with Home Health Anticipated Discharge Date: Discharge Date: Expected LOS: Initial Reviewer: [email or web address] Initial Review Date: 10/26/2018 Generated: 10/27/18 9:41 am Patient Name: VINAY SYED Page 16708 at 0842 All edits/amendments must be made on the electronic document DICTATION DATE: 10/27/18840 BOILER RELINER: ANN 10/27/18840 RPT#: [id number] DC DATE: STATUS: ADM IN [facility] [address] [place] [address] END OF REPORT
--- NOTE | 2018-10-27 08:49 | MORECARE ---
CASE MANAGEMENT DISCHARGE SUMMARY PATIENT: VINAY SYED UNIT: [id number] ADM DATE: 10/24/18 AGE: 82 : 37 SEX: F ROOM/BED: D.1204 AUTHOR: KYE MCCORMICK PHYSICIAN: REFERRING PHYSICIAN: CANDIS MENARD MD DATE OF SERVICE: 10/27/18 Discharge Plan Patient Name: VINAY SYED Facility: [facility]:[place] : 1935 Planned Disposition: Home with Home Health Anticipated Discharge Date: Discharge Date: Expected LOS: Initial Reviewer: [email or web address] Initial Review Date: 10/26/2018 Generated: 10/27/18 9:48 am DCPIA - Discharge Planning Initial Assessment Updated by [email or web address]: Fatimah Benites on 10/27/18 8:43 am * Is the patient Alert and Oriented? Yes * How many steps to enter\exit or inside your home? * PCP MARU * [facility]acy [facility] * Preadmission Environment Home with Family * ADLs Independent * Other Equipment HOME 02, PORTABLE 02, NEBULIZER, W/C, WALKER, ADJUSTED BED, SHOWER CHAIR * List name and contact numbers for known caregivers / representatives who currently or will assist patient after discharge: LORA BILLS -DAUGHTER- [phone] * Verbal permission to speak to the caregivers and representatives has been obtained from the patient. Yes * Community resources currently utilized Home Health * Please name any agencies selected above. [facility] [phone] * Additional services required to return to the preadmission environment? No * Can the patient safely return to the preadmission environment? Yes * Has this patient been hospitalized within the prior 30 days at any hospital? No Coverage Notice Reviewer: [id number] - Fatimah Benites Notice Issued Date-Time: 10/26/2018 14:20 Notice Type: IM Discharge Notice Notice Delivered To: Patient Relationship to Patient: Self Roadway Designer Name: Delivery Method: HAND - Hand Delivered Yuliana Days: Prior Verbal Notification: Recipient Understood Notice: Yes Recipient Signature: Yes Med Rec Note Co-signed by Attending: Coverage Notice Comment: Last DP export: 10/27/18 7:42 a Patient Name: VINAY SYED Page 41374 at 0849 All edits/amendments must be made on the electronic document DICTATION DATE: 10/27/18847 APPLICATIONS SYSTEMS ENGINEER: ANN 10/27/18847 RPT#: [id number] DC DATE: STATUS: ADM IN [facility] [address] [place] [address] END OF REPORT
--- NOTE | 2018-10-27 08:56 | MORECARE ---
CASE MANAGEMENT DISCHARGE SUMMARY PATIENT: VINAY SYED UNIT: [id number] ADM DATE: 10/24/18 AGE: 82 : 37 SEX: F ROOM/BED: D.1204 AUTHOR: KYE MCCORMICK PHYSICIAN: REFERRING PHYSICIAN: CANDIS MENARD MD DATE OF SERVICE: 10/27/18 Discharge Plan Patient Name: VINAY SYED Facility: [facility]:[place] : 1935 Planned Disposition: Home with Home Health Anticipated Discharge Date: Discharge Date: Expected LOS: Initial Reviewer: [email or web address] Initial Review Date: 10/26/2018 Generated: 10/27/18 9:55 am Comments DCP- Discharge Planning Updated by [email or web address]: Fatimah Benites on 10/27/18 7:[address] Patient Name: VINAY SYED Admission Status: ER Accout number: [id number] Admission Date: 10-24-2018 : 1935 Admission Diagnosis: Attending: CANDIS WASHINGTON Current LOS: 3 Anticipated DC Date: Planned Disposition: Home with Home Health Primary Insurance: MEDICARE A & B Discharge Planning Comments: CM met with patient to complete initial dc planning assessment. CM educated patient on the CM role and verbal consent given by patient to complete assessment. Patient lives at home with her and daughter where she is independent with her care. At discharge patient plans to return home and feels this is a safe discharge. Patient has refused inpatient rehab states her just got home from hospital and that is where she wants to be. Patient states that she does have home health but may need help with other daily needs. CM gave her information on [employer] for personal care assistance. Patient states that she has all medical equipment she needs at home.Patient has a nebulizer and home o2 / portable 02. Her daughter will be her sulky driver home. Patient denied known discharge needs at this time. D/C IMM explained and served 10/26/18 @ 1420. CM will continue to follow and will assist as needed with dc plans/needs. Patrol Conductor: Fatimah Benites DCPIA - Discharge Planning Initial Assessment Updated by [id number]: Fatimah Benites on 10/27/18 8:43 am * Is the patient Alert and Oriented? Yes * How many steps to enter\exit or inside your home? * PCP MARU * [facility] * Preadmission Environment Home with Family * ADLs Independent * Other Equipment HOME 02, PORTABLE 02, NEBULIZER, W/C, WALKER, ADJUSTED BED, SHOWER CHAIR * List name and contact numbers for known caregivers / representatives who currently or will assist patient after discharge: LORA BILLS -DAUGHTER- [phone] * Verbal permission to speak to the caregivers and representatives has been obtained from the patient. Yes * Community resources currently utilized Home Health * Please name any agencies selected above. [facility] [phone] * Additional services required to return to the preadmission environment? No * Can the patient safely return to the preadmission environment? Yes * Has this patient been hospitalized within the prior 30 days at any hospital? No Coverage Notice Reviewer: [email or web address] Maria Isabel Benites Notice Issued Date-Time: 10/26/2018 14:20 Notice Type: IM Discharge Notice Notice Delivered To: Patient Relationship to Patient: Self Inspector Aluminum Boat Name: Delivery Method: HAND - Hand Delivered Yuliana Days: Prior Verbal Notification: Recipient Understood Notice: Yes Recipient Signature: Yes Med Rec Note Co-signed by Attending: Coverage Notice Comment: Last DP export: 10/27/18 7:49 a Patient Name: VINAY SYED Page 69498 at 0856 All edits/amendments must be made on the electronic document DICTATION DATE: 10/27/18854 CONTRACT ASSOCIATE MANAGER: ANN 10/27/1855 RPT#: [id number] DC DATE: STATUS: ADM IN [facility] [address] [place] [address] END OF REPORT
--- NOTE | 2018-10-27 10:37 | NUR ---
I have reviewed this patient and I concur with the Shift Assessment completed by the Licensed Practical Nurse today this shift.
--- NOTE | 2018-10-27 11:54 | NUR ---
NO SKIN ISSUES NOTED.
--- NOTE | 2018-10-27 12:33 | NUR ---
OT NOTE: PT CONTINUES TO APPEAR MORE CONFUSED. SHE HAS INCREASED DIFFICULTY FINISHING TASKS AND DIFFICULTY COMPLETING THOUGHT PATTERNS. FREQ CUES TO FINISH ACTIVITY. BED MOB WITH MIN ASSIT TODAY. MAX ASSIST TO PURA SOCKS; SET UP WITH GOWN AND SIMPLE FACE/HAND WASHING. ABLE TO AMB INTO HALLWAY GREATER THAN 50 FT BUT FATIGUED QUICKLY AND REQUIRED ONE STANDING REST BREAK. BACK TO BED WITH MOD ASSIST TO GET LES BACK ONTO BED. IGGY MANNING, OTR/L
--- NOTE | 2018-10-27 14:44 | NUR ---
OT NOTE: PT COMPLETED BED MOB WITH MIN A. PT COMPLETED ADL MOB WITH CGA. PT COMPLETED BUE AROM AXS. PT COMPLETED SIMPLE HAIR GROOMING AT EOB WITH SIT UP. THANK YOU, KELLY COCHRAN
[2018-10-27 17:13] VITALS: BP 157/69
--- NOTE | 2018-10-27 19:03 | NUR ---
PT IN BED. REPOSITIONED PER REQUEST PT DENIES FURTHER NEEDS AT THIS TIME.
[2018-10-27 21:02] VITALS: BP 148/84
[2018-10-28 01:14] VITALS: BP 166/86
[2018-10-28 05:06] VITALS: BP 147/75
[2018-10-28 06:28] LABS: BASOPHILS 0.6 % (0-2); EOSINOPHILS 5.4 % (0-7); HEMATOCRIT 33.2 % (36.0-48.0); HEMOGLOBIN 10.9 g/dL (12-16); IMMATURE GRANULOCYTES 0.2 % (0-5); LYMPHOCYTES 23.6 % (15-50); MCH 31.9 pg (26.0-34.0); MCHC 32.8 g/dL (31.0-37.0); MCV 97.1 fL (80.0-100.0); MEAN PLATELET VOLUME 9.7 fL (7.4-10.4); MONOCYTES 15.3 % (2-11); NEUTROPHILS 54.9 % (40-80); PLATELET COUNT 257 10x3/uL (130-400); RBC 3.42 10x6/uL (4.00-5.40); RDW 14.5 % (11.5-14.5); WBC 4.8 10x3/uL (4.8-10.8)
[2018-10-28 06:45] LABS: CALC OSMOLALITY 281 mosm/kg (275-300); CALCIUM 8.1 mg/dL (8.5-10.1); CARBON DIOXIDE 33.1 mmol/L (21.0-32.0); CHLORIDE - SERUM 104 mmol/L (98-107); CREATININE - SERUM 0.7 mg/dL (0.6-1.3); GLUCOSE 93 mg/dL (74-106); POTASSIUM - SERUM 3.1 mmol/L (3.5-5.1); SODIUM 143 mmol/L (136-145); eGFR NON AFRICAN AMERICAN 85 mL/min (90-120)
[2018-10-28 06:46] LABS: INR 2.71 (0.85-1.17); UREA NITROGEN 5 mg/dL (7-18)
--- NOTE | 2018-10-28 07:10 | NUR ---
REPORT RECIEVED. PT LYING FOWLERS WEARING 2L NC SAT AT 100%. RR EVEN AND UNLABORED. RIGHT AC PIV IS SL. CALL LIGHT WITHING REACH, BED IN LOWEST POSITION, AND SIDE RAILS UP X2. PT HAS NO OTHER NEEDS AT THIS TIME. WILL CTM.
--- NOTE | 2018-10-28 07:30 | NUR ---
REPORT RECIEVED. PT HAS L AC PIV INFUSING NS @125. RR EVEN AND UNLABORED ON ROOM AIR. ASSISTED PT TO BATHROOM AND BACK TO BED. BED ALARM ON AND WORKING. PT HAS NO FURTHER NEEDS AT THIS TIME. WILL CTM
[2018-10-28] MEDS ORDERED: COUMADIN3 MG PO (08:06)
[2018-10-28] MEDS ORDERED: LEVAQUIN750 MG PO (08:07)
[2018-10-28 10:13] VITALS: BP 141/67
--- NOTE | 2018-10-28 11:58 | NUR ---
Revisited with this patient and her daughter again today about acute rehab. The patient remains adamant about going home with HH. I explained to her the 30 day window Medicare allows for readmission to the ARU if she fails at home. Both the patient and her daughter, who lives with the patient and her spouse are very recepetive to this idea. The patient was given a Rehab pamphlet along with contact number if she decides she needs inpatient rehab. Discussed with the CM Natasha Rueda RN. Leigha Gresham RN Clinical Liaison, Rehab
--- NOTE | 2018-10-28 14:05 | MORECARE ---
CASE MANAGEMENT DISCHARGE SUMMARY PATIENT: VINAY SYED UNIT: [id number] ADM DATE: 10/24/18 AGE: 82 : 37 SEX: F ROOM/BED: D.1204 AUTHOR: ANNY,DOC PHYSICIAN: REFERRING PHYSICIAN: CANDIS MENARD MD DATE OF SERVICE: 10/28/18 Discharge Plan Patient Name: VINAY SYED Facility: [facility]:[place] : 1935 Planned Disposition: Home with Home Health Anticipated Discharge Date: Discharge Date: Expected LOS: Initial Reviewer: [email or web address] Initial Review Date: 10/26/2018 Generated: 10/28/18 3:05 pm Comments DCP- Discharge Planning Updated by [id number]: Marissa Rueda on 10/28/18 1:[address] PATIENT IS DISCHARGING HOME TODAY AND WILL CONTINUE WITH [facility], I CALLED AND SPOKE WITH MARK. CLINICALS SENT OVER. JOHN WITH [facility] ALSO VISITED WITH HER AND LET HER KNOW THAT IF SHE FEELS LIKE SHE NEEDED REHAB THAT SHE COULD CALL AND BE ADMITTED FROM HOME. PATIENT HAS ALL DME THAT SHE NEEDS DCP- Discharge Planning Updated by [id number]: Fatimah Kamari on 10/27/18 7:[address] LATE ENTRY 10/26/18 1425 Patient Name: VINAY SYED Admission Status: ER Accout number: [id number] Admission Date: 10-24-2018 : 1935 Admission Diagnosis: Attending: CANDIS WASHINGTON Current LOS: 3 Anticipated DC Date: Planned Disposition: Home with Home Health Primary Insurance: MEDICARE A & B Discharge Planning Comments: CM met with patient to complete initial dc planning assessment. CM educated patient on the CM role and verbal consent given by patient to complete assessment. Patient lives at home with her and daughter where she is independent with her care. At discharge patient plans to return home and feels this is a safe discharge. Patient has refused inpatient rehab states her just got home from hospital and that is where she wants to be. Patient states that she does have home health but may need help with other daily needs. CM gave her information on [employer] for personal care assistance. Patient states that she has all medical equipment she needs at home.Patient has a nebulizer and home o2 / portable 02. Her daughter will be her milk pickup truck driver home. Patient denied known discharge needs at this time. D/C IMM explained and served 10/26/18 @ 1420. CM will continue to follow and will assist as needed with dc plans/needs. Shipyard Helper: Fatimah Benites DCPIA - Discharge Planning Initial Assessment Updated by [id number]: Fatimah Benites on 10/27/18 8:43 am * Is the patient Alert and Oriented? Yes * How many steps to enter\exit or inside your home? * PCP [facility] * Pharmacy [facility] * Preadmission Environment Home with Family * ADLs Independent * Other Equipment HOME 02, PORTABLE 02, NEBULIZER, W/C, WALKER, ADJUSTED BED, SHOWER CHAIR * List name and contact numbers for known caregivers / representatives who currently or will assist patient after discharge: LORA BILLS -DAUGHTER- [phone] * Verbal permission to speak to the caregivers and representatives has been obtained from the patient. Yes * Community resources currently utilized Home Health * Please name any agencies selected above. [facility] [phone] * Additional services required to return to the preadmission environment? No * Can the patient safely return to the preadmission environment? Yes * Has this patient been hospitalized within the prior 30 days at any hospital? No External Providers [facility] Next Contact Date: Service Request Date: Service Type: Resolution: Reviewer: Comments: Coverage Notice Reviewer: [id number] - Fatimah Benites Notice Issued Date-Time: 10/26/2018 14:20 Notice Type: IM Discharge Notice Notice Delivered To: Patient Relationship to Patient: Self Director Life Sales Name: Delivery Method: HAND - Hand Delivered Yuliana Days: Prior Verbal Notification: Recipient Understood Notice: Yes Recipient Signature: Yes Med Rec Note Co-signed by Attending: Coverage Notice Comment: Last DP export: 10/27/18 7:55 a Patient Name: VINAY SYED Page 01214 at 1405 All edits/amendments must be made on the electronic document DICTATION DATE: 10/28/18 1405 FRINGE WEAVER: ANN 10/28/18 1405 RPT#: [id number] DC DATE: STATUS: ADM IN [facility] [address] [facility] [place] [address] END OF REPORT
--- NOTE | 2018-10-28 15:43 | NUR ---
OT NOTE: PT COMPLETED SITTING BALANCE ACTIVIIES WITH BUE GROSS MOTOR REACHING ACTIVITIES WITH SBA. THANK YOU, KELLY COCHRAN
--- NOTE | 2018-10-28 17:20 | NUR ---
DC PAPERS SIGNED AND GONE OVER WITH PT AND FAMILY. ANSWERED ALL PTS QUESTIONS. TELEMETRY REMOVED AND RETURNED. PIV REMOVED CATH INTACT. TOOK PT TO FRONT VIA WHEELCHAIR WITH DAUGHTER.
--- NOTE | 2018-10-29 07:32 | MORECARE ---
CASE MANAGEMENT DISCHARGE SUMMARY PATIENT: VINAY SYED UNIT: [id number] ADM DATE: 10/24/18 AGE: 82 : 37 SEX: F ROOM/BED: D.1204 AUTHOR: KYE MCCORMICK PHYSICIAN: REFERRING PHYSICIAN: CANDIS MENARD MD DATE OF SERVICE: 10/29/18 Discharge Plan Patient Name: VINAY SYED Facility: [facility]:[place] : 1935 Planned Disposition: Home with Home Health Anticipated Discharge Date: Discharge Date: 10/28/2018 Expected LOS: Initial Reviewer: [email or web address] Initial Review Date: 10/26/2018 Generated: 10/29/18 8:32 am Comments DCP- Discharge Planning Updated by [id number]: Marissa Rueda on 10/28/18 1:[address] PATIENT IS DISCHARGING HOME TODAY AND WILL CONTINUE WITH [facility], I CALLED AND SPOKE WITH MARK. CLINICALS SENT OVER. JOHN WITH [facility] ALSO VISITED WITH HER AND LET HER KNOW THAT IF SHE FEELS LIKE SHE NEEDED REHAB THAT SHE COULD CALL AND BE ADMITTED FROM HOME. PATIENT HAS ALL DME THAT SHE NEEDS DCP- Discharge Planning Updated by [email or web address]: Fatimah Benites on 10/27/18 7:[address] LATE ENTRY 10/26/18 1425 Patient Name: VINAY SYED Admission Status: ER Accout number: [id number] Admission Date: 10-24-2018 : 1935 Admission Diagnosis: Attending: CANDIS WASHINGTON Current LOS: 3 Anticipated DC Date: Planned Disposition: Home with Home Health Primary Insurance: MEDICARE A & B Discharge Planning Comments: CM met with patient to complete initial dc planning assessment. CM educated patient on the CM role and verbal consent given by patient to complete assessment. Patient lives at home with her and daughter where she is independent with her care. At discharge patient plans to return home and feels this is a safe discharge. Patient has refused inpatient rehab states her just got home from hospital and that is where she wants to be. Patient states that she does have home health but may need help with other daily needs. CM gave her information on [facility] on [facility]ging for personal care assistance. Patient states that she has all medical equipment she needs at home.Patient has a nebulizer and home o2 / portable 02. Her daughter will be her dump truck driver home. Patient denied known discharge needs at this time. D/C IMM explained and served 10/26/18 @ 1420. CM will continue to follow and will assist as needed with dc plans/needs. Freight Car Cleaner Delta System: Fatimah Benites DCPIA - Discharge Planning Initial Assessment Updated by [id number]: Fatimah Benites on 10/27/18 8:43 am * Is the patient Alert and Oriented? Yes * How many steps to enter\exit or inside your home? * PCP [facility] * [facility] * Preadmission Environment Home with Family * ADLs Independent * Other Equipment HOME 02, PORTABLE 02, NEBULIZER, W/C, WALKER, ADJUSTED BED, SHOWER CHAIR * List name and contact numbers for known caregivers / representatives who currently or will assist patient after discharge: LORA BILLS -DAUGHTER- [phone] * Verbal permission to speak to the caregivers and representatives has been obtained from the patient. Yes * Community resources currently utilized Home Health * Please name any agencies selected above. [facility] [phone] * Additional services required to return to the preadmission environment? No * Can the patient safely return to the preadmission environment? Yes * Has this patient been hospitalized within the prior 30 days at any hospital? No Coverage Notice Reviewer: [id number] - Fatimah Benites Notice Issued Date-Time: 10/26/2018 14:20 Notice Type: IM Discharge Notice Notice Delivered To: Patient Relationship to Patient: Self Surveyor Oil Well Directional Name: Delivery Method: HAND - Hand Delivered Yuliana Days: Prior Verbal Notification: Recipient Understood Notice: Yes Recipient Signature: Yes Med Rec Note Co-signed by Attending: Coverage Notice Comment: Last DP export: 10/28/18 1:05 p Patient Name: VINAY SYED Page [id number] at 0732 All edits/amendments must be made on the electronic document DICTATION DATE: 10/29/18731 FOOD PRODUCTION SUPERVISOR: ANN 10/29/1832 RPT#: [id number] DC DATE:10/28/18 STATUS: DIS IN [facility] [address] [place] [address] END OF REPORT
== END 2018-10-28 17:23 | disposition home health service (06) | DRG 193 ==
LOC: D.ER 16:52 → D.M3 18:52 → OBSVTIME 18:53 → D.M3 10-24 13:25
PROVIDERS: Family Medicine; Internal Medicine Nephrology; ADMIT Family Medicine; ATTEND Family Medicine
DX: J18.1 Lobar pneumonia, unspecified organism (principal); G92 Toxic encephalopathy; J96.21 Acute and chronic respiratory failure with hypoxia; N39.0 Urinary tract infection, site not specified; Z99.81 Dependence on supplemental oxygen

== ENCOUNTER → 2019-01-06 15:39 | Outpatient (CLI) | payer MEDICARE, OTHER ==
[2018-10-26 14:02] VITALS: BMI 33.6
[~2019-01-06 15:39] MED LIST changes: +COUMADIN3 MG PO; +LEVAQUIN750 MG PO; +MACROBID100 MG PO; +SINGULAIR10 MG PO
[2019-01-06 16:42] LABS: APPEARANCE CLEAR (CLEAR); BILIRUBIN NEGATIVE (NEGATIVE); COLOR YELLOW (YELLOW); GLUCOSE NEGATIVE (NEGATIVE); KETONE NEGATIVE (NEGATIVE); NITRITE NEGATIVE (NEGATIVE); PROTEIN NEGATIVE (NEGATIVE); UROBILINOGEN NORMAL (NORMAL)
[2019-01-06 16:43] LABS: BACTERIA MANY /hpf (NEGATIVE); EPITHELIAL CELLS 0-5 /hpf (0-5); RED CELLS - URINE OCC /hpf (0-5); WHITE CELLS - URINE 0-5 /hpf (NEGATIVE)
== END | disposition home or self-care (01) ==
LOC: D.LABREF 15:39
PROVIDERS: ATTEND Family Medicine
DX: R30.0 Dysuria (principal); R35.0 Frequency of micturition

== ENCOUNTER → 2019-02-01 13:48 | Outpatient (CLI) | payer MEDICARE, OTHER ==
[2018-10-26 14:02] VITALS: BMI 33.6
--- NOTE | 2019-02-03 13:38 | EC ---
PATIENT:VINAY SYED DATE OF SERVICE: 02/01/19 SEX: F MEDICAL RECORD: [id number] DATE OF : [birth year] LOCATION:D[facility] AGE OF PATIENT: 83 ADMISSION DATE: 02/01/19 REFERRING PHYSICIAN: INTERPRETING PHYSICIAN: DEION MONSIVAIS MD ECHOCARDIOGRAM REPORT ECHO CHARGES 4 ECHO COMPLETE Date: 02/01/19 CLINICAL DIAGNOSIS: ATRIAL FIB,CAD/HTN,ASSESS EF AND VALVES ECHOCARDIOGRAPHIC MEASUREMENTS (adult normal given) AC root (d.<3.7cm) 2.6 cm LV Septum d (<1.2 cm> 1.0 cm Valve Excursion 1.3 cm LV Septum (systole) 1.2 cm Left Atria (s.<4.0cm> 3.5 cm LVPW d(<1.2cm) 1.2 cm RV (d.<2.3cm) 3.5 cm LVPW (sytole) 1.5 cm LV diastole(<5.6CM) 4.7 cm MV E-F(>70mm/sec) cm LV systole 3.6 cm LVOT Diameter 1.9 cm MV exc.(>10mm) 1.1 cm Est.ejection fraction (50-75%) % DOPPLER: LVIT cm/sec A 60.0 cm/sec E 75.0 cm/sec LA cm/sec RVSP 27 mmHg LVOT 85 cm/sec AOP1/2T m/s Asc. Ao 155 cm/sec RVOT 91 cm/sec RA cm/sec PA 108 cm/sec AV Gradient Peak 9.58 mmHg AV Mean 5.13 mmHg AV Area 1.5 cm MV Gradient Peak 2.80 mmHg MV Mean 1.00 mmHg MV Area cm COMMENTS: Fire Services Plumber: 2 LUPE SAMUEL Lacing Cutter: 3 Dr. Ng TAPE# PACS Pericardial Effusion N DATE OF SERVICE: Adequate 2D, color flow, spectral Doppler, and M-Mode. No LVH. LV internal dimensions are normal. Wall motions are normal. EF is greater than or equal to 55%. Aortic valve is sclerotic. There is no evidence of stenosis by Doppler interrogation. There is mild AI by color flow imaging. Left atrium is normal. Mitral valve shows no prolapse. Trace MR. Right-sided chambers shows grossly normal. Trace TR. TRANSINT:[id number] Voice Confirmation ID: [id number] DOCUMENT ID: [id number] ECHOCARDIOGRAM REPORT [id number] VINAY SYED,DEION Ochoa MD at 1338 CC: [id number] DICTATION DATE: 02/02/19 1459 INDUSTRIAL ENGINEERING: 02/03/19 0002 DEP CLI 02/01/19 [place] [id number] [place] [id number]
== END | disposition home or self-care (01) ==
LOC: D.HCCECHO 13:30 → D.HCCARDIO 13:30 → D.HCCECHO 13:48
PROVIDERS: ATTEND Internal Medicine Interventional Cardiology
DX: I48.91 Unspecified atrial fibrillation (principal)

== ENCOUNTER 2019-02-03 13:50 | Emergency (ER) | payer MEDICARE, OTHER ==
[~2019-02-03] VITALS: Ht 156.2 cm; Wt 81.8 kg
[~2019-02-03 13:50] MED LIST changes: -MACROBID100 MG PO
[2019-02-03 13:56] VITALS: Ht 156.2 cm; Wt 81.8 kg
[2019-02-03 14:23] LABS: BASOPHILS 0.5 % (0-2); EOSINOPHILS 2.9 % (0-7); HEMATOCRIT 36.4 % (36.0-48.0); HEMOGLOBIN 11.5 g/dL (12-16); IMMATURE GRANULOCYTES 0.3 % (0-5); LYMPHOCYTES 17.1 % (15-50); MCH 31.9 pg (26.0-34.0); MCHC 31.6 g/dL (31.0-37.0); MCV 101.1 fL (80.0-100.0); MEAN PLATELET VOLUME 8.9 fL (7.4-10.4); MONOCYTES 10.1 % (2-11); NEUTROPHILS 69.1 % (40-80); PLATELET COUNT 268 10x3/uL (130-400); RDW 15.7 % (11.5-14.5); WBC 7.7 10x3/uL (4.8-10.8)
[2019-02-03 14:46] LABS: ANION GAP 8.2 mmol/L (8-16); CALCIUM 8.4 mg/dL (8.5-10.1); CARBON DIOXIDE 32.7 mmol/L (21.0-32.0); CREATININE - SERUM 0.8 mg/dL (0.6-1.3); POTASSIUM - SERUM 4.9 mmol/L (3.5-5.1)
[2019-02-03 14:52] LABS: APPEARANCE HAZY (CLEAR); BACTERIA MANY /hpf (NEGATIVE); BILIRUBIN NEGATIVE (NEGATIVE); COLOR YELLOW (YELLOW); EPITHELIAL CELLS 0-5 /hpf (0-5); GLUCOSE NEGATIVE (NEGATIVE); KETONE NEGATIVE (NEGATIVE); NITRITE NEGATIVE (NEGATIVE); PROTEIN NEGATIVE (NEGATIVE); RED CELLS - URINE 0-5 /hpf (0-5); UROBILINOGEN NORMAL (NORMAL); WHITE CELLS - URINE >50 /hpf (NEGATIVE)
[2019-02-03 14:52] LABS: ALBUMIN 2.8 g/dL (3.4-5.0); BILIRUBIN - TOTAL 0.52 mg/dL (0.2-1.3); PROTEIN - SERUM 6.5 g/dL (6.4-8.2)
[2019-02-03 15:27] LABS: APTT 29.9 SECONDS (22.8-39.4); INR 1.5 (0.85-1.17); PROTIME 17.5 SECONDS (11.6-15.0)
[2019-02-03] MEDS ORDERED: MACROBID100 MG PO (16:53)
[2019-02-03 18:16] VITALS: BP 147/66
[2019-02-08 18:08] LABS: AEROBE ID Final report (()); RESULT 1 Aerococcus urinae (())
== END 2019-02-03 17:21 | disposition home or self-care (01) ==
LOC: D.ER 13:50
PROVIDERS: Emergency Medicine
DX: R10.13 Epigastric pain (principal); I10 Essential (primary) hypertension; J45.909 Unspecified asthma, uncomplicated; N39.0 Urinary tract infection, site not specified

== ENCOUNTER 2019-03-11 18:32 | Inpatient (IN) | payer MEDICARE, OTHER ==
[~2019-03-11] VITALS: Ht 156.2 cm; Wt 82.6 kg
[~2019-03-11 18:32] MED LIST changes: +MACROBID100 MG PO
[2019-03-11 19:06] LABS: BASOPHILS 0.4 % (0-2); EOSINOPHILS 0.7 % (0-7); HEMATOCRIT 34.2 % (36.0-48.0); HEMOGLOBIN 10.7 g/dL (12-16); IMMATURE GRANULOCYTES 0.3 % (0-5); LYMPHOCYTES 7.1 % (15-50); MCH 31.1 pg (26.0-34.0); MCHC 31.3 g/dL (31.0-37.0); MCV 99.4 fL (80.0-100.0); MEAN PLATELET VOLUME 8.8 fL (7.4-10.4); MONOCYTES 17.1 % (2-11); NEUTROPHILS 74.4 % (40-80); PLATELET COUNT 234 10x3/uL (130-400); RBC 3.44 10x6/uL (4.00-5.40); RDW 15.2 % (11.5-14.5); WBC 6.7 10x3/uL (4.8-10.8)
[2019-03-11 19:15] LABS: ANION GAP 6.9 mmol/L (8-16); CALCIUM 8.7 mg/dL (8.5-10.1); CARBON DIOXIDE 31.6 mmol/L (21.0-32.0); CREATININE - SERUM 0.8 mg/dL (0.6-1.3); POTASSIUM - SERUM 4.5 mmol/L (3.5-5.1)
[2019-03-11 19:20] LABS: ALBUMIN 2.7 g/dL (3.4-5.0); BILIRUBIN - TOTAL 0.34 mg/dL (0.2-1.3); PROTEIN - SERUM 6.6 g/dL (6.4-8.2)
[2019-03-11 19:55] LABS: APPEARANCE CLEAR (CLEAR); BILIRUBIN NEGATIVE (NEGATIVE); COLOR STRAW (YELLOW); GLUCOSE NEGATIVE (NEGATIVE); KETONE NEGATIVE (NEGATIVE); NITRITE NEGATIVE (NEGATIVE); PROTEIN NEGATIVE (NEGATIVE); SPECIFIC GRAVITY 1.005 (1.005-1.020); UROBILINOGEN NORMAL (NORMAL)
[2019-03-11 19:57] LABS: AMORPHOUS SEDIMENT <1+ /lpf (NONE SEEN); BACTERIA MANY /hpf (NEGATIVE); EPITHELIAL CELLS 0-5 /hpf (0-5); RED CELLS - URINE OCC /hpf (0-5)
--- NOTE | 2019-03-11 23:00 | NUR ---
PT ARRIVED TO THE FLOOR. ALERT AND ORINETED. NO SIGNS OF DISTRESS. BREATHING EVEN AND UNLABORED. IV SITE LT AC DRESSING CLEAN DRY AND INTACT. NO SIGNS OF INFECTION. PT STATES NO PROBLEMS AT THIS TIME. LUNG SOUNDS CLEAR. BOWEL SOUNDS ACTIVE. SOME GENERLIZED SWELLING. RASH LT SIDE BUTTOCKS AND VAGINAL AREA. OPEN TO AIR PT STATES RASH CAME UP 3 DAYS AGO. WILL CONTINUE PLAN OF CARE. CALL LIGHT IN REACH. BED LOWERED AND LOCKED. BED RAILS UPX2. BED ALARM ON.
[2019-03-12] VITALS (7 sets, daily range): BP systolic 125–159; BP diastolic 59–78; Ht 156.2 cm; Wt 82.6 kg
[2019-03-12 06:38] LABS: APTT 41.5 SECONDS (22.8-39.4); INR 4.06 (0.85-1.17); PROTIME 38.6 SECONDS (11.6-15.0)
[2019-03-12 06:47] LABS: BASOPHILS 0.9 % (0-2); EOSINOPHILS 1.3 % (0-7); HEMATOCRIT 33.8 % (36.0-48.0); HEMOGLOBIN 10.7 g/dL (12-16); IMMATURE GRANULOCYTES 0.4 % (0-5); LYMPHOCYTES 14.2 % (15-50); MCH 31.3 pg (26.0-34.0); MCHC 31.7 g/dL (31.0-37.0); MCV 98.8 fL (80.0-100.0); MEAN PLATELET VOLUME 9.2 fL (7.4-10.4); MONOCYTES 19.8 % (2-11); NEUTROPHILS 63.4 % (40-80); PLATELET COUNT 210 10x3/uL (130-400); RBC 3.42 10x6/uL (4.00-5.40); RDW 15.3 % (11.5-14.5); WBC 5.4 10x3/uL (4.8-10.8)
[2019-03-12 06:49] LABS: MAGNESIUM - SERUM 1.8 mg/dL (1.8-2.4); PHOSPHOROUS 4.2 mg/dL (2.5-4.9)
--- NOTE | 2019-03-12 13:38 | NUR ---
ALERT AND ORIENTED X4 WITH RASH NOTED TO LEFT LABIA WITH TYLENOL GIVEN FOR PAIN AND EFFECTIVE. IV TO LT. A/C WITH NO S/S OF INFECTION/INFILTRATION. ENCOURAGED TO USE CALL LIGHT FOR ASSIST.
--- NOTE | 2019-03-12 19:15 | NUR ---
ANSWERED PATIENT CALL LIGHT. PATIENT UPSET. STATES SHE HAS HAD A BAD DAY. ASSISTED TO BED SIDE. COMMODE. PURPLE LESIONS NOTED TO LEFT PERINEAL AND BUTTOCKS. PATIENT LEFT AC IV THAT IS SALINE LOCKED AT THIS TIME. PATIENT CALMED DOWN AFTER ASSISTING TO BED SIDE COMMODE. STATES SHE IS UPSET WITH STEP DAUGHTER AT THIS TIME DUE TO NEEDING ITEMS FROM HOME. OFFERED ITEMS THAT WE HAVE HERE AT THE HOSPITAL. PATIENT DENIES AT THIS TIME. PATIENT DENIES FURTHER NEEDS AFTER SAFELY RETURNING TO BED. BED ALARM NOT ON AND NO GONZALEZ IN ROOM. ACTIVATED BED ALARM FOR PATIENT SAFETY. CALL LIGHT IN REACH. CPOC.
--- NOTE | 2019-03-12 20:01 | NUR ---
PATIENT HAD SMALL ACCIDENT IN BED. CHANGED SHEETS FOR COMFORT.
--- NOTE | 2019-03-12 20:15 | NUR ---
SPOKE WITH PATIENT ABOUT CONCERNS FROM DAUGHTERS. PATIENT STATES THAT SHE DOES WANT IV PAIN MEDICINE AND THAT SHE DOES NOT WANT TO TAKE THE STEROID. CALL LIGHT IN REACH. CPOC.
--- NOTE | 2019-03-12 20:50 | NUR ---
PATIENT STEP DAUGHTER WAITING FOR THIS NURSE AT NURSES STATION. STATES THAT THIS NURSE NEEDS TO GIVE PATIENT IV PAIN MEDICINE AT THIS TIME. PATIENT DID NOT REQUEST FROM THIS NURSE. PATIENT DAUGHTER STATES "WELL SHE FORGETS". STEP DAUGHTER THEN HANDS THE PHONE TO THIS NURSE THAT HAS ANOTHER SISTER ON THE LINE THAT IS UPSET OVER MEDICAITONS ADMINISTERED TODAY THAT PATIENT DISCLOSED TO DAUGHTER. BOTH DAUGHTERS STATE THAT PATIENT IS NOT TO TAKE STEROIDS ANYMORE DUE TO PREVIOUS REACTION.
[2019-03-13 00:30] VITALS: BP 151/70
--- NOTE | 2019-03-13 04:23 | NUR ---
I have reviewed this patient and I concur with the Shift Assessment completed by the Licensed Practical Nurse today this shift.
[2019-03-13 05:43] VITALS: BP 160/68
[2019-03-13 06:28] LABS: BASOPHILS 0.6 % (0-2); EOSINOPHILS 0 % (0-7); HEMATOCRIT 35.8 % (36.0-48.0); IMMATURE GRANULOCYTES 0.2 % (0-5); LYMPHOCYTES 15.9 % (15-50); MCH 30.9 pg (26.0-34.0); MCHC 30.7 g/dL (31.0-37.0); MCV 100.6 fL (80.0-100.0); MEAN PLATELET VOLUME 9.3 fL (7.4-10.4); MONOCYTES 12.1 % (2-11); NEUTROPHILS 71.2 % (40-80); PLATELET COUNT 214 10x3/uL (130-400); RBC 3.56 10x6/uL (4.00-5.40); RDW 15.2 % (11.5-14.5); WBC 6.2 10x3/uL (4.8-10.8)
[2019-03-13 06:59] LABS: MAGNESIUM - SERUM 1.8 mg/dL (1.8-2.4); PHOSPHOROUS 4.1 mg/dL (2.5-4.9)
--- NOTE | 2019-03-13 09:00 | NUR ---
ALERT AND ORIENTED X4. SKIN RASH NOTED TO LEFT LABIA WITH TRAMADOL GIVEN FOR PAIN AND EFFECTIVE. IV S/L WITH NO S/S OF INFECTION/INFILTRATION. PT CALL FOR ASSIST TO GET UP TO BSC. ENCOURAGED TO USE CALL LIGHT FOR ASSIST.
[2019-03-13 09:12] VITALS: BP 150/70
[2019-03-13 13:04] VITALS: BP 164/68
[2019-03-13 15:11] LABS: INR 2.06 (0.85-1.17); PROTIME 22.5 SECONDS (11.6-15.0)
[2019-03-13 16:36] VITALS: BP 144/63
--- NOTE | 2019-03-13 19:15 | NUR ---
PATIENT ALERT AND ORIENTED PLAYING ON TABLET WHEN ENTERING THE ROOM. PATIENT IN GOOD SPIRITS. STATES THAT SHE HAS HAD A MUCH BETTER DAY. AFTER PRIOR EDUCATION WAS PROVIDED. PATIENT HAS DECIDED TO GO FORTH WITH STEROIDS. PATIENT STATES THAT THERE IS A REASON FOR ALL PRESCRIBED MEDICATIONS. PATIENT LESIONS HAVE BEGUN CRUSTING OVER AND REDUCED INTO A CRAFT MANAGER VARIATION OF PURPLE AND RED. PATIENT STATES THAT SHE HAS MINIMAL PAIN EXCEPT THAT THE DEPENDS/PADS SHE WEARS STICKS TO THE LESIONS CAUSING THEM TO TEAR. ASSISTED PATIENT IN APPLYING VASELINE/PERTROLEUM JELLY TO THE PAD TO REDUCE STICKING TO LESIONS. PATIENT STATES "THIS IS HELPING ALREADY." ASSISTED PATIENT TO BSC. DENIES FURTHER NEEDS AT THIS TIME. CALL LIGHT IS IN REACH OF PATIENT.
[2019-03-13 20:00] VITALS: BP 151/66
[2019-03-14] VITALS: BP 148/61
[2019-03-14 04:00] VITALS: BP 143/68
[2019-03-14 05:48] LABS: BASOPHILS 0.1 % (0-2); EOSINOPHILS 0 % (0-7); HEMATOCRIT 32.5 % (36.0-48.0); HEMOGLOBIN 10.3 g/dL (12-16); IMMATURE GRANULOCYTES 0.4 % (0-5); LYMPHOCYTES 15.7 % (15-50); MCH 31.1 pg (26.0-34.0); MCHC 31.7 g/dL (31.0-37.0); MEAN PLATELET VOLUME 9.4 fL (7.4-10.4); MONOCYTES 7.1 % (2-11); NEUTROPHILS 76.7 % (40-80); PLATELET COUNT 252 10x3/uL (130-400); RBC 3.31 10x6/uL (4.00-5.40); RDW 15.1 % (11.5-14.5); WBC 7.6 10x3/uL (4.8-10.8)
[2019-03-14 05:59] LABS: CALCIUM 8.3 mg/dL (8.5-10.1); CARBON DIOXIDE 27.2 mmol/L (21.0-32.0); CREATININE - SERUM 0.8 mg/dL (0.6-1.3); MAGNESIUM - SERUM 1.9 mg/dL (1.8-2.4); POTASSIUM - SERUM 4.2 mmol/L (3.5-5.1)
[2019-03-14 06:03] LABS: MCV 98.2 fL (80.0-100.0)
[2019-03-14 06:40] LABS: INR 2.12 (0.85-1.17); PROTIME 23.1 SECONDS (11.6-15.0)
--- NOTE | 2019-03-14 07:38 | NUR ---
ALERT AND ORIENTED. LUNGS CLEAR BILATERALLY. HEART SOUNDS S1 AND S2 HEARD IN ALL SANTO. BOWEL SOUNDS ACTIVE X 4. LESIONS TO GENITALIA CRUSTING OVER. IV TO LEFT AC PATENT WITHOUT REDNESS. TELEMETRY IN PLACE SHOWING 72 NORMAL SINUS ON MONITOR. DENIES NEEDS. BED LOW. FALL PRECAUTIONS IN PLACE. CALL CABRERA AND PERSONAL ITEMS IN REACH. WILL CONTINUE TO MONITOR.
[2019-03-14 08:36] VITALS: BP 142/61
--- NOTE | 2019-03-14 10:16 | NUR ---
PATIENT SLEEPING. WILL CONTINUE TO MONITOR.
--- NOTE | 2019-03-14 11:45 | NUR ---
PATIENT DISTRESSED AND IN TEARNS D/T CALL LIGHT FELL ON FLOOR AND COULD NOT REACH AND NEEDED TO GO TO RESTROOM. REASSURED PATIENT AND ASSISTED TO BATHROOM. PATIENT GIVEN PRN ZANAFLEX AND TRAMADOL PER REQUEST. ASSISTED BACK TO BED. WILL CONTINUE TO MONITOR.
[2019-03-14 11:58] VITALS: BP 159/76
[2019-03-14 15:30] VITALS: BP 104/56
--- NOTE | 2019-03-14 16:48 | NUR ---
RESTING IN BED. DENIES NEEDS. WILL CONTINUE TO MONITOR.
--- NOTE | 2019-03-14 18:06 | NUR ---
RESTING IN BED. DENIES NEEDS. BED LOW. FALL PRECAUTIONS IN PLACE. CALL CABRERA AND PERSONAL ITEMS IN REACH.
--- NOTE | 2019-03-14 19:00 | NUR ---
BEDSIDE REPORT RECEIVED AND CARE OF PT ASSUMED. PT JUST HAD LINENS CHANGED DUE TO INCONTINENCE. VERY UPSET WITH MULTIPLE COMPLAINTS ABOUT CARE. EVERYTHING SHE HAS ASKED FOR HAS BEEN PROVIDED. WILL MONITOR FOR NEEDS.
--- NOTE | 2019-03-14 19:10 | NUR ---
PROVIDED ICE PER REQUEST. POURED HER DR SORIANO AND PLACED WITHIN HER REACH. EMPTIED BSC AND CLEANED.
--- NOTE | 2019-03-14 19:25 | NUR ---
CLEARED ROOM OF DIRTY LINEN AND CHECKED FOR NEEDS...NO NEEDS VOICED AT THIS TIME.
--- NOTE | 2019-03-14 20:10 | NUR ---
PROVIDED ICE WATER AND CHECKED ON PT FOR NEEDS...NO NEEDS VOICED AT THIS TIME.
--- NOTE | 2019-03-14 20:30 | NUR ---
HS MEDICATIONS GIVEN TO INCLUDE ATIVAN FOR ANXIETY, ZANAFLEX FOR MUSCLE RELAXATION, AND ULTRAM FOR PAIN. NO OTHER NEEDS VOICED AT THIS TIME.
[2019-03-14 20:54] VITALS: BP 170/70
--- NOTE | 2019-03-14 22:07 | NUR ---
PT SITTING UP IN MID FLEMING'S POSITION READING ON HER TABLET. NO NEEDS VOICED AT THIS TIME.
--- NOTE | 2019-03-14 22:15 | NUR ---
PT ASSISTED UP TO BSC TO VOID. ASSISTED WITH CLEANSING AND BARRIER SPRAY APPLIED TO BUTTOCKS. POSITIONED BACK IN BED FOR COMFORT.
[2019-03-15 00:27] VITALS: BP 150/76
[2019-03-15 04:27] VITALS: BP 150/80
[2019-03-15 05:53] LABS: BASOPHILS 0.1 % (0-2); EOSINOPHILS 0.7 % (0-7); HEMATOCRIT 31.8 % (36.0-48.0); HEMOGLOBIN 9.9 g/dL (12-16); IMMATURE GRANULOCYTES 0.7 % (0-5); LYMPHOCYTES 30.7 % (15-50); MCH 30.6 pg (26.0-34.0); MCHC 31.1 g/dL (31.0-37.0); MCV 98.1 fL (80.0-100.0); MONOCYTES 12.6 % (2-11); NEUTROPHILS 55.2 % (40-80); PLATELET COUNT 255 10x3/uL (130-400); RBC 3.24 10x6/uL (4.00-5.40); RDW 15.1 % (11.5-14.5); WBC 8.2 10x3/uL (4.8-10.8)
[2019-03-15 06:21] LABS: INR 2.06 (0.85-1.17); PROTIME 22.5 SECONDS (11.6-15.0)
[2019-03-15 06:29] LABS: ANION GAP 10.5 mmol/L (8-16); CARBON DIOXIDE 29.3 mmol/L (21.0-32.0); CREATININE - SERUM 0.8 mg/dL (0.6-1.3); MAGNESIUM - SERUM 1.8 mg/dL (1.8-2.4); POTASSIUM - SERUM 3.8 mmol/L (3.5-5.1)
[2019-03-15 08:36] VITALS: BP 156/92
--- NOTE | 2019-03-15 08:43 | NUR ---
PT RESTING QUIETLY IN BED EATING BREAKFAST. RESP EVEN AND UNLABORED. IV TO LEFT AC SALINE LOC. SITE WITHOUT REDNESS OR EDEMA. PT DENIES FURTHER NEEDS AT THIS TIME. CL WITHIN REACH. ENCOURAGED TO CALL WITH NEEDS. CONTINUE POC
[2019-03-15] MEDS ORDERED: ZOVIRAX800 MG PO (11:51)
--- NOTE | 2019-03-15 13:18 | MORECARE ---
CASE MANAGEMENT DISCHARGE SUMMARY PATIENT: VINAY SYED UNIT: [id number] ADM DATE: 03/11/19 AGE: 83 : 37 SEX: F ROOM/BED: D.2240 AUTHOR: KYE MCCORMICK PHYSICIAN: REFERRING PHYSICIAN: CANDIS MENARD MD DATE OF SERVICE: 03/15/19 Discharge Plan Patient Name: VINAY SYED Facility: [facility]:[place] : 1935 Planned Disposition: Home with Home Health Anticipated Discharge Date: 03/15/19 Discharge Date: Expected LOS: 4 Initial Reviewer: [email or web address] Initial Review Date: 03/15/2019 Generated: 03/15/19 2:18 pm Coverage Notice Reviewer: [id number] Tovar Notice Issued Date-Time: 03/15/2019 13:12 Notice Type: IM Discharge Notice Notice Delivered To: Patient Relationship to Patient: Self Hoist Mechanic Name: Delivery Method: HAND - Hand Delivered Yuliana Days: Prior Verbal Notification: Recipient Understood Notice: Yes Recipient Signature: Yes Med Rec Note Co-signed by Attending: Coverage Notice Comment: IMM explained, signed, given, copy placed in MR Reviewer: [id number] Maria Isabel Tovar Notice Issued Date-Time: 03/15/2019 13:12 Notice Type: Patient Choice Letter Notice Delivered To: Patient Relationship to Patient: Hoist Mechanic Name: Delivery Method: HAND - Hand Delivered Yluiana Days: Prior Verbal Notification: Recipient Understood Notice: Yes Recipient Signature: Yes Med Rec Note Co-signed by Attending: Coverage Notice Comment: [facility] for [facility] Patient Name: VINAY SYED Page [id number] at 1318 All edits/amendments must be made on the electronic document DICTATION DATE: 03/15/19 1318 MANAGER SPANISH: ANN 03/15/19 1318 [facility]#: [id number] OR DATE: STATUS: ADM IN [facility] [address] [place] [address] END OF REPORT
--- NOTE | 2019-03-15 13:27 | MORECARE ---
CASE MANAGEMENT DISCHARGE SUMMARY PATIENT: VINAY SYED UNIT: [id number] ADM DATE: 03/11/19 AGE: 83 : 37 SEX: F ROOM/BED: D.2240 AUTHOR: KYE MCCORMICK PHYSICIAN: REFERRING PHYSICIAN: CANDIS MENARD MD DATE OF SERVICE: 03/15/19 Discharge Plan Patient Name: VINAY SYED Facility: [facility]:[place] : 1935 Planned Disposition: Home with Home Health Anticipated Discharge Date: 03/15/19 Discharge Date: Expected LOS: 4 Initial Reviewer: [email or web address] Initial Review Date: 03/15/2019 Generated: 03/15/19 2:26 pm Comments DCP- Discharge Planning Updated by [id number]: Dona Tovar on 03/15/19 12:[address] Patient Name: VINAY SYED Admission Status: ER Accout number: [id number] Admission Date: 03-11-2019 : 1935 Admission Diagnosis:ZOSTER WITHOUT COMPLICATIONS Attending: CANDIS WASHINGTON Current LOS: 4 Anticipated DC Date: 03-15-2019 Planned Disposition: Home with Home Health Primary Insurance: MEDICARE A & B Discharge Planning Comments: CM met with patient to complete initial dc planning assessment. CM educated patient on the CM role and verbal consent given by patient to complete assessment. Patient lives at home with her and daughter. At discharge patient plans to return and feels this is a safe discharge. CM discussed availability of home health, rehab services, and medical equipment. Patient states she has [facility] and would like it resumed on discharge. She also has a private aide that assists with her care. CM will continue to follow and will assist as needed with dc plans/needs. Accounting Clerks Supervisor: Dona Tovar DCPIA - Discharge Planning Initial Assessment Updated by [id number]: Dona Tovar on 03/15/19 1:22 pm * Is the patient Alert and Oriented? Yes * How many steps to enter\exit or inside your home? Ramp/0 * PCP Aneesh * [facility] on [address] for immediate meds * Preadmission Environment Home with Family * ADLs Independent * Equipment Nebulizer Other Oxygen Shower Chair Walker Wheelchair * Other Equipment Portable oxygen scooter Adjustable bed transfer wheelchair * List name and contact numbers for known caregivers / representatives who currently or will assist patient after discharge: Alexa Joiner - [facility] - [phone] * Verbal permission to speak to the caregivers and representatives has been obtained from the patient. Yes * Community resources currently utilized Home Health * Please name any agencies selected above. [facility] * Additional services required to return to the preadmission environment? No * Can the patient safely return to the preadmission environment? Yes * Has this patient been hospitalized within the prior 30 days at any hospital? No Coverage Notice Reviewer: [id number] Tovar Notice Issued Date-Time: 03/15/2019 13:12 Notice Type: IM Discharge Notice Notice Delivered To: Patient Relationship to Patient: Self Stretching Press Operator Name: Delivery Method: HAND - Hand Delivered Yuliana Days: Prior Verbal Notification: Recipient Understood Notice: Yes Recipient Signature: Yes Med Rec Note Co-signed by Attending: Coverage Notice Comment: IMM explained, signed, given, copy placed in MR Reviewer: [id number] Tovar Notice Issued Date-Time: 03/15/2019 13:12 Notice Type: Patient Choice Letter Notice Delivered To: Patient Relationship to Patient: Stretching Press Operator Name: Delivery Method: HAND - Hand Delivered Yuliana Days: Prior Verbal Notification: Recipient Understood Notice: Yes Recipient Signature: Yes Med Rec Note Co-signed by Attending: Coverage Notice Comment: ETVIN for [facility] Last DP export: 03/15/19 12:18 Patient Name: VINAY SYED Page [id number] at 1327 All edits/amendments must be made on the electronic document DICTATION DATE: 03/15/19 1327 COMMERCIAL FRONT LOAD OPERATOR: ANN 03/15/19 1327 RPT#: [id number] DC DATE: STATUS: ADM IN [facility] [address] [place] [address] END OF REPORT
--- NOTE | 2019-03-15 13:44 | MORECARE ---
CASE MANAGEMENT DISCHARGE SUMMARY PATIENT: VINAY SYED UNIT: [id number] ADM DATE: 03/11/19 AGE: 83 : 37 SEX: F ROOM/BED: D.2240 AUTHOR: KYE MCCORMICK PHYSICIAN: REFERRING PHYSICIAN: CANDIS MENARD MD DATE OF SERVICE: 03/15/19 Discharge Plan Patient Name: VINAY SYED Facility: [facility]:[place] : 1935 Planned Disposition: Home with Home Health Anticipated Discharge Date: 03/15/19 Discharge Date: Expected LOS: 4 Initial Reviewer: [email or web address] Initial Review Date: 03/15/2019 Generated: 03/15/19 2:43 pm Comments DCP- Discharge Planning Updated by [id number]: Dona Tovar on 03/15/19 12:[address] Spoke to Banks at [facility] and informed of discharge today, clinical faxed. CM will continue to follow and assist with discharge planning/needs. DCP- Discharge Planning Updated by [email or web address]: Dona Tovar on 03/15/19 12:[address] Patient Name: VINAY SYED Admission Status: ER Accout number: [id number] Admission Date: 03-11-2019 : 1935 Admission Diagnosis:ZOSTER WITHOUT COMPLICATIONS Attending: CANDIS WASHINGTON Current LOS: 4 Anticipated DC Date: 03-15-2019 Planned Disposition: Home with Home Health Primary Insurance: MEDICARE A & B Discharge Planning Comments: CM met with patient to complete initial dc planning assessment. CM educated patient on the CM role and verbal consent given by patient to complete assessment. Patient lives at home with her and daughter. At discharge patient plans to return and feels this is a safe discharge. CM discussed availability of home health, rehab services, and medical equipment. Patient states she has [facility] and would like it resumed on discharge. She also has a private aide that assists with her care. CM will continue to follow and will assist as needed with dc plans/needs. Environmental Health And Safety Leader: Dona Tovar DCPIA - Discharge Planning Initial Assessment Updated by [email or web address]: Dona Tovar on 03/15/19 1:22 pm * Is the patient Alert and Oriented? Yes * How many steps to enter\exit or inside your home? Ramp/0 * PCP Aneesh * [facility] on [address] [place] for immediate meds * Preadmission Environment Home with Family * ADLs Independent * Equipment Nebulizer Other Oxygen Shower Chair Walker Wheelchair * Other Equipment Portable oxygen scooter Adjustable bed transfer wheelchair * List name and contact numbers for known caregivers / representatives who currently or will assist patient after discharge: Alexa Joiner [facility] - [phone] * Verbal permission to speak to the caregivers and representatives has been obtained from the patient. Yes * Community resources currently utilized Home Health * Please name any agencies selected above. [facility] * Additional services required to return to the preadmission environment? No * Can the patient safely return to the preadmission environment? Yes * Has this patient been hospitalized within the prior 30 days at any hospital? No External Providers External Provider: [facility] Next Contact Date: Service Request Date: Service Type: Resolution: Reviewer: Comments: Coverage Notice Reviewer: [email or web address] Tovar Notice Issued Date-Time: 03/15/2019 13:12 Notice Type: IM Discharge Notice Notice Delivered To: Patient Relationship to Patient: Self Autoglazier Name: Delivery Method: HAND - Hand Delivered Yuliana Days: Prior Verbal Notification: Recipient Understood Notice: Yes Recipient Signature: Yes Med Rec Note Co-signed by Attending: Coverage Notice Comment: IMM explained, signed, given, copy placed in MR Reviewer: [id number] Tovar Notice Issued Date-Time: 03/15/2019 13:12 Notice Type: Patient Choice Letter Notice Delivered To: Patient Relationship to Patient: Autoglazier Name: Delivery Method: HAND - Hand Delivered Yuliana Days: Prior Verbal Notification: Recipient Understood Notice: Yes Recipient Signature: Yes Med Rec Note Co-signed by Attending: Coverage Notice Comment: TEVIN for [facility] Last DP export: 03/15/19 12:27 Patient Name: VINAY SYED Page [phone] at 1344 All edits/amendments must be made on the electronic document DICTATION DATE: 03/15/19 1343 PREASSEMBLER PRINTED CIRCUIT BOARD: ANN 03/15/19 1343 RPT#: [id number] DC DATE: STATUS: ADM IN [facility] [address] [place] [address] END OF REPORT
[2019-03-15] MEDS ORDERED: ULTRAM50 MG PO (15:39)
--- NOTE | 2019-03-15 20:45 | NUR ---
A&O X 4. SUPINE IN BED. REPORTS UNABLE TO TURN EFFECTIVELY DUE TO PAST BACK SURGERY. REPORTS PAIN TO REE AREA AND BUTTOCK BEGINNING TO INCREASE. STATES BARRIER SPRAY STICKS TO PADS AND LINENS. ENCOURAGED PT TO ALLOW COMPLETE DRYING BEFORE LAYING BACK, PT REFUSED DUE TO PREEXISTING BACK PROBLEMS. WILL CONTINUE TO MONITOR.
[2019-03-15 20:50] VITALS: BP 150/61
[2019-03-16 00:59] VITALS: BP 151/65
[2019-03-16 04:06] VITALS: BP 130/64
--- NOTE | 2019-03-16 04:19 | NUR ---
I have reviewed this patient and I concur with the Shift Assessment completed by the Licensed Practical Nurse today this shift.
[2019-03-16 06:51] LABS: BASOPHILS 0.5 % (0-2); EOSINOPHILS 2.4 % (0-7); HEMATOCRIT 36.6 % (36.0-48.0); HEMOGLOBIN 11.4 g/dL (12-16); IMMATURE GRANULOCYTES 0.9 % (0-5); MCHC 31.1 g/dL (31.0-37.0); MCV 99.5 fL (80.0-100.0); MEAN PLATELET VOLUME 9.1 fL (7.4-10.4); MONOCYTES 15.5 % (2-11); NEUTROPHILS 44.7 % (40-80); RBC 3.68 10x6/uL (4.00-5.40); RDW 15.3 % (11.5-14.5); WBC 7.8 10x3/uL (4.8-10.8)
[2019-03-16 06:53] LABS: PLATELET COUNT 309 10x3/uL (130-400)
[2019-03-16 06:59] LABS: ANION GAP 9.4 mmol/L (8-16); CALCIUM 8.3 mg/dL (8.5-10.1); CARBON DIOXIDE 32.3 mmol/L (21.0-32.0); CREATININE - SERUM 0.9 mg/dL (0.6-1.3); MAGNESIUM - SERUM 1.8 mg/dL (1.8-2.4); POTASSIUM - SERUM 3.7 mmol/L (3.5-5.1)
[2019-03-16 07:00] LABS: PHOSPHOROUS 4.2 mg/dL (2.5-4.9)
[2019-03-16 07:19] LABS: INR 1.95 (0.85-1.17); PROTIME 21.6 SECONDS (11.6-15.0)
[2019-03-16 09:24] VITALS: BP 112/61
--- NOTE | 2019-03-16 11:32 | MORECARE ---
CASE MANAGEMENT DISCHARGE SUMMARY PATIENT: VINAY SYED UNIT: [id number] ADM DATE: 03/11/19 AGE: 83 : 37 SEX: F ROOM/BED: D.2240 AUTHOR: KYE MCCORMICK PHYSICIAN: REFERRING PHYSICIAN: CANDIS MENARD MD DATE OF SERVICE: 03/16/19 Discharge Plan Patient Name: VINAY SYED Facility: [facility]:[place] : 1935 Planned Disposition: Home with Home Health Anticipated Discharge Date: 03/15/19 Discharge Date: Expected LOS: 4 Initial Reviewer: [email or web address] Initial Review Date: 03/15/2019 Generated: 03/16/19 12:31 pm Comments DCP- Discharge Planning Updated by [id number]: Dona Tovar on 03/16/19 10:[address] Received a call from patient's daughter in [place], she has asked that patient have a urology consult. I am unable to understand her number due to a bad connection. I met with the patient and she states "that's my 's daughter." States "I feel better today and I am ready to go home." States she knows she has a UTI and is being treated for it. States "I have my daughter at home to help me." States she does not want rehab. States "I get rehab with home health." States she feels going home with home health is a safe discharge. DCP- Discharge Planning Updated by [email or web address]: Dona Tovar on 03/15/19 12:[address] Spoke to Billie at [facility] and informed of discharge today, clinical faxed. CM will continue to follow and assist with discharge planning/needs. DCP- Discharge Planning Updated by [id number]: Dona Tovar on 03/15/19 12:[address] Patient Name: VINAY SYED Admission Status: ER Accout number: [id number] Admission Date: 03-11-2019 : 1935 Admission Diagnosis:ZOSTER WITHOUT COMPLICATIONS Attending: CANDIS WASHINGTON Current LOS: 4 Anticipated DC Date: 03-15-2019 Planned Disposition: Home with Home Health Primary Insurance: MEDICARE A & B Discharge Planning Comments: CM met with patient to complete initial dc planning assessment. CM educated patient on the CM role and verbal consent given by patient to complete assessment. Patient lives at home with her and daughter. At discharge patient plans to return and feels this is a safe discharge. CM discussed availability of home health, rehab services, and medical equipment. Patient states she has [facility] and would like it resumed on discharge. She also has a private aide that assists with her care. CM will continue to follow and will assist as needed with dc plans/needs. Contact Lens Curve Grinder: Dona La DCPIA - Discharge Planning Initial Assessment Updated by [email or web address]: Dona La on 03/15/19 1:22 pm * Is the patient Alert and Oriented? Yes * How many steps to enter\\exit or inside your home? Ramp/0 * PCP Aneesh * [facility] on [address] [place] for immediate meds * Preadmission Environment Home with Family * ADLs Independent * Equipment Nebulizer Other Oxygen Shower Chair Walker Wheelchair * Other Equipment Portable oxygen scooter Adjustable bed transfer wheelchair * List name and contact numbers for known caregivers / representatives who currently or will assist patient after discharge: Alexa Joiner [facility] - [phone] * Verbal permission to speak to the caregivers and representatives has been obtained from the patient. Yes * Community resources currently utilized Home Health * Please name any agencies selected above. [facility] * Additional services required to return to the preadmission environment? No * Can the patient safely return to the preadmission environment? Yes * Has this patient been hospitalized within the prior 30 days at any hospital? No Coverage Notice Reviewer: [id number] Maria Isabel Tovar Notice Issued Date-Time: 03/15/2019 13:12 Notice Type: IM Discharge Notice Notice Delivered To: Patient Relationship to Patient: Self Commodities Trader Name: Delivery Method: HAND - Hand Delivered Yuliana Days: Prior Verbal Notification: Recipient Understood Notice: Yes Recipient Signature: Yes Med Rec Note Co-signed by Attending: Coverage Notice Comment: IMM explained, signed, given, copy placed in MR Reviewer: [id number] Maria Isabel Tovar Notice Issued Date-Time: 03/15/2019 13:12 Notice Type: Patient Choice Letter Notice Delivered To: Patient Relationship to Patient: Commodities Trader Name: Delivery Method: HAND - Hand Delivered Yuliana Days: Prior Verbal Notification: Recipient Understood Notice: Yes Recipient Signature: Yes Med Rec Note Co-signed by Attending: Coverage Notice Comment: TEVIN for [facility] Last DP export: 03/15/19 12:44 Patient Name: VINAY SYED Page [id number] at 1132 All edits/amendments must be made on the electronic document DICTATION DATE: 03/16/19 113 BUILDING CONSTRUCTION SUPERVISOR: ANN 03/16/19 113 RPT#: [id number] DC DATE: STATUS: ADM IN [facility] [address] [place] [address] END OF REPORT
--- NOTE | 2019-03-16 12:08 | MORECARE ---
CASE MANAGEMENT DISCHARGE SUMMARY PATIENT: VINAY SYED UNIT: [id number] ADM DATE: 03/11/19 AGE: 83 : 37 SEX: F ROOM/BED: D.2240 AUTHOR: KYE MCCORMICK PHYSICIAN: REFERRING PHYSICIAN: CANDIS MENARD MD DATE OF SERVICE: 03/16/19 Discharge Plan Patient Name: VINAY SYED Facility: [facility]:[place] : 1935 Planned Disposition: Home with Home Health Anticipated Discharge Date: 03/15/19 Discharge Date: Expected LOS: 4 Initial Reviewer: [email or web address] Initial Review Date: 03/15/2019 Generated: 03/16/19 1:08 pm Comments DCP- Discharge Planning Updated by [email or web address]: Dona Tovar on 03/16/19 11:[address] Patient in agreement to discharge home with [facility]. I called and spoke to Ivet and clinical has been faxed. DCP- Discharge Planning Updated by [email or web address]: Dona La on 03/16/19 10:[address] Received a call from patient's daughter in [place], she has asked that patient have a urology consult. I am unable to understand her number due to a bad connection. I met with the patient and she states "that's my 's daughter." States "I feel better today and I am ready to go home." States she knows she has a UTI and is being treated for it. States "I have my daughter at home to help me." States she does not want rehab. States "I get rehab with home health." States she feels going home with home health is a safe discharge. DCP- Discharge Planning Updated by [id number]: Dona Tovar on 03/15/19 12:[address] Spoke to Billie at [facility] and informed of discharge today, clinical faxed. CM will continue to follow and assist with discharge planning/needs. DCP- Discharge Planning Updated by [email or web address]: Dona Tovar on 03/15/19 12:[address] Patient Name: VINAY SYED Admission Status: ER Accout number: [id number] Admission Date: 03-11-2019 : 1935 Admission Diagnosis:ZOSTER WITHOUT COMPLICATIONS Attending: CANDIS WASHINGTON Current LOS: 4 Anticipated DC Date: 03-15-2019 Planned Disposition: Home with Home Health Primary Insurance: MEDICARE A & B Discharge Planning Comments: CM met with patient to complete initial dc planning assessment. CM educated patient on the CM role and verbal consent given by patient to complete assessment. Patient lives at home with her and daughter. At discharge patient plans to return and feels this is a safe discharge. CM discussed availability of home health, rehab services, and medical equipment. Patient states she has [facility] and would like it resumed on discharge. She also has a private aide that assists with her care. CM will continue to follow and will assist as needed with dc plans/needs. Infant Toddler Lead Teacher: Dona Tovar DCPIA - Discharge Planning Initial Assessment Updated by [id number]: Dona Tovar on 03/15/19 1:22 pm * Is the patient Alert and Oriented? Yes * How many steps to enter\\exit or inside your home? Ramp/0 * PCP Aneesh * [facility] on [address] [place] for immediate meds * Preadmission Environment Home with Family * ADLs Independent * Equipment Nebulizer Other Oxygen Shower Chair Walker Wheelchair * Other Equipment Portable oxygen scooter Adjustable bed transfer wheelchair * List name and contact numbers for known caregivers / representatives who currently or will assist patient after discharge: Alexa Joiner - [facility] - [phone] * Verbal permission to speak to the caregivers and representatives has been obtained from the patient. Yes * Community resources currently utilized Home Health * Please name any agencies selected above. [facility] * Additional services required to return to the preadmission environment? No * Can the patient safely return to the preadmission environment? Yes * Has this patient been hospitalized within the prior 30 days at any hospital? No Coverage Notice Reviewer: [id number] - Dona Tovar Notice Issued Date-Time: 03/15/2019 13:12 Notice Type: IM Discharge Notice Notice Delivered To: Patient Relationship to Patient: Self Compensator Name: Delivery Method: HAND - Hand Delivered Yuliana Days: Prior Verbal Notification: Recipient Understood Notice: Yes Recipient Signature: Yes Med Rec Note Co-signed by Attending: Coverage Notice Comment: IMM explained, signed, given, copy placed in MR Reviewer: [id number] Maria Isabel Dona Tovar Notice Issued Date-Time: 03/15/2019 13:12 Notice Type: Patient Choice Letter Notice Delivered To: Patient Relationship to Patient: Compensator Name: Delivery Method: HAND - Hand Delivered Yuliana Days: Prior Verbal Notification: Recipient Understood Notice: Yes Recipient Signature: Yes Med Rec Note Co-signed by Attending: Coverage Notice Comment: TEVIN for [facility] Last DP export: 03/16/19 10:32 Patient Name: VINAY SYED Page 64501 at 1208 All edits/amendments must be made on the electronic document DICTATION DATE: 03/16/191206 READING ASSISTANT: ANN 03/16/191206 RPT#: [id number] DC DATE: STATUS: ADM IN [facility] [address] [place] [address] END OF REPORT
--- NOTE | 2019-03-16 12:41 | NUR ---
IV REMOVED WITH NO REDNESS OR EDEMA AT SITE. DISCHARGE INSTRUCTIONS GIVEN WITH PATIENT VOICING UNDERSTANDING. PATIENT TAKEN BY WHEELCHAIR TO PRIVATE CAR
--- NOTE | 2019-03-17 14:13 | MORECARE ---
CASE MANAGEMENT DISCHARGE SUMMARY PATIENT: VINAY SYED UNIT: [id number] ADM DATE: 03/11/19 AGE: 83 : 37 SEX: F ROOM/BED: D.2240 AUTHOR: KYE MCCORMICK PHYSICIAN: REFERRING PHYSICIAN: CANDIS MENARD MD DATE OF SERVICE: 03/17/19 Discharge Plan Patient Name: VINAY SYED Facility: [facility]:[place] : 1935 Planned Disposition: Home with Home Health Anticipated Discharge Date: 03/15/19 Discharge Date: 03/16/2019 Expected LOS: 4 Initial Reviewer: [email or web address] Initial Review Date: 03/15/2019 Generated: 03/17/19 3:13 pm Comments DCP- Discharge Planning Updated by [email or web address]: Dona La on 03/16/19 11:[address] Patient in agreement to discharge home with [facility]. I called and spoke to Ivet and clinical has been faxed. DCP- Discharge Planning Updated by [email or web address]: Dona Aldanaashley on 03/16/19 10:[address] Received a call from patient's daughter in [place], she has asked that patient have a urology consult. I am unable to understand her number due to a bad connection. I met with the patient and she states "that's my 's daughter." States "I feel better today and I am ready to go home." States she knows she has a UTI and is being treated for it. States "I have my daughter at home to help me." States she does not want rehab. States "I get rehab with home health." States she feels going home with home health is a safe discharge. DCP- Discharge Planning Updated by [id number]: Dona Tovar on 03/15/19 12:[address] Spoke to Billie at [facility] and informed of discharge today, clinical faxed. CM will continue to follow and assist with discharge planning/needs. DCP- Discharge Planning Updated by [id number]: Dona Aldanaashley on 03/15/19 12:[address] Patient Name: VINAY SYED Admission Status: ER Accout number: [id number] Admission Date: 03-11-2019 : 1935 Admission Diagnosis:ZOSTER WITHOUT COMPLICATIONS Attending: CANDIS W[place] Current LOS: 4 Anticipated DC Date: 03-15-2019 Planned Disposition: Home with Home Health Primary Insurance: MEDICARE A & B Discharge Planning Comments: CM met with patient to complete initial dc planning assessment. CM educated patient on the CM role and verbal consent given by patient to complete assessment. Patient lives at home with her and daughter. At discharge patient plans to return and feels this is a safe discharge. CM discussed availability of home health, rehab services, and medical equipment. Patient states she has [facility] and would like it resumed on discharge. She also has a private aide that assists with her care. CM will continue to follow and will assist as needed with dc plans/needs. Loading And Unloading Supervisor: Dona Tovar DCPIA - Discharge Planning Initial Assessment Updated by [email or web address]: Dona Tovar on 03/15/19 1:22 pm * Is the patient Alert and Oriented? Yes * How many steps to enter\\exit or inside your home? Ramp/0 * PCP Aneesh * [facility] [address] for immediate meds * Preadmission Environment Home with Family * ADLs Independent * Equipment Nebulizer Other Oxygen Shower Chair Walker Wheelchair * Other Equipment Portable oxygen scooter Adjustable bed transfer wheelchair * List name and contact numbers for known caregivers / representatives who currently or will assist patient after discharge: Alexa Joiner - DTR - [phone] * Verbal permission to speak to the caregivers and representatives has been obtained from the patient. Yes * Community resources currently utilized Home Health * Please name any agencies selected above. [facility] * Additional services required to return to the preadmission environment? No * Can the patient safely return to the preadmission environment? Yes * Has this patient been hospitalized within the prior 30 days at any hospital? No Coverage Notice Reviewer: [email or web address] - Dona Tovar Notice Issued Date-Time: 03/15/2019 13:12 Notice Type: IM Discharge Notice Notice Delivered To: Patient Relationship to Patient: Self Kiln Loader Name: Delivery Method: HAND - Hand Delivered Yuliana Days: Prior Verbal Notification: Recipient Understood Notice: Yes Recipient Signature: Yes Med Rec Note Co-signed by Attending: Coverage Notice Comment: IMM explained, signed, given, copy placed in MR Reviewer: [id number] - Dona Aldanaashley Notice Issued Date-Time: 03/15/2019 13:12 Notice Type: Patient Choice Letter Notice Delivered To: Patient Relationship to Patient: Kiln Loader Name: Delivery Method: HAND - Hand Delivered Yuliana Days: Prior Verbal Notification: Recipient Understood Notice: Yes Recipient Signature: Yes Med Rec Note Co-signed by Attending: Coverage Notice Comment: TEVIN for [facility] Last DP export: 03/16/19 11:08 Patient Name: VINAY SYED Page [id number] at 1413 All edits/amendments must be made on the electronic document DICTATION DATE: 03/17/19 1413 FACE WORKER: ANN 03/17/19 1413 RPT#: [id number] DC DATE:03/16/19 STATUS: DIS IN [facility] [address] [place] [address] END OF REPORT
[2019-03-18 18:08] LABS: AEROBE ID Final report (())
== END 2019-03-16 12:42 | disposition home health service (06) | DRG 866 ==
LOC: D.ER 18:32 → D.MS 21:42
PROVIDERS: Emergency Medicine; Family Medicine; ADMIT Family Medicine; ATTEND Family Medicine
DX: B02.8 Zoster with other complications (principal); N39.0 Urinary tract infection, site not specified; I10 Essential (primary) hypertension; I25.10 Atherosclerotic heart disease of native coronary artery without angina pectoris; I25.2 Old myocardial infarction; J45.909 Unspecified asthma, uncomplicated; K21.9 Gastro-esophageal reflux disease without esophagitis; M19.90 Unspecified osteoarthritis, unspecified site; R11.2 Nausea with vomiting, unspecified; E86.0 Dehydration; R42 Dizziness and giddiness; E66.9 Obesity, unspecified; Z68.33 Body mass index [BMI] 33.0-33.9, adult; K44.9 Diaphragmatic hernia without obstruction or gangrene; F32.9 Major depressive disorder, single episode, unspecified

== ENCOUNTER 2019-03-20 21:01 | Emergency (ER) | payer MEDICARE, OTHER ==
[~2019-03-20] VITALS: Ht 156.2 cm; Wt 90.7 kg
[~2019-03-20 21:01] MED LIST changes: +ZOVIRAX800 MG PO
[2019-03-20 21:03] VITALS: Ht 156.2 cm; Wt 90.7 kg
[2019-03-20] MEDS ORDERED: NEURONTIN 300300 MG PO (21:51)
[2019-03-20] MEDS ORDERED: NYSTATIN15 GM TOPICAL (21:51)
[2019-03-20 22:47] VITALS: BP 114/57
== END 2019-03-20 22:47 | disposition home or self-care (01) ==
LOC: D.ER 21:01
DX: B02.23 Postherpetic polyneuropathy (principal); M19.90 Unspecified osteoarthritis, unspecified site; M79.662 Pain in left lower leg; M79.661 Pain in right lower leg; B37.2 Candidiasis of skin and nail; I10 Essential (primary) hypertension; I25.2 Old myocardial infarction; J45.909 Unspecified asthma, uncomplicated; Z99.81 Dependence on supplemental oxygen

== ENCOUNTER 2019-03-30 08:39 | Emergency (ER) | payer MEDICARE, OTHER ==
[~2019-03-30] VITALS: Ht 156.2 cm; Wt 90.9 kg
[~2019-03-30 08:39] MED LIST changes: +NEURONTIN 300300 MG PO; +NYSTATIN15 GM TOPICAL
[2019-03-30 08:44] VITALS: Ht 156.2 cm; Wt 90.9 kg
[2019-03-30] MEDS ORDERED: ADVAIR HFA 230-12 GM INH (08:52)
[2019-03-30] MEDS ORDERED: COUMADIN3 MG PO (08:54)
[2019-03-30] MEDS ORDERED: COUMADIN5 MG PO (08:55)
[2019-03-30] MEDS ORDERED: ISOSORBIDE MONO10 MG PO (09:14)
[2019-03-30] MEDS ORDERED: ATIVAN0.5 MG PO (09:15)
[2019-03-30] MEDS ORDERED: SINGULAIR10 MG PO (09:16)
[2019-03-30] MEDS ORDERED: ZOVIRAX 5% CREAM5 GM TOPICAL (09:21)
[2019-03-30] MEDS ORDERED: PREDNISONE20 MG PO (09:21)
[2019-03-30] MEDS ORDERED: ZOVIRAX800 MG PO (09:21)
[2019-03-30 12:08] VITALS: BP 150/68
== END 2019-03-30 12:10 | disposition home or self-care (01) ==
LOC: D.ER 08:39
DX: B02.9 Zoster without complications (principal); R52 Pain, unspecified; I10 Essential (primary) hypertension; I25.2 Old myocardial infarction; J45.909 Unspecified asthma, uncomplicated; Z99.81 Dependence on supplemental oxygen

== ENCOUNTER 2019-04-01 15:32 | Emergency (ER) | payer MEDICARE, OTHER ==
[~2019-04-01] VITALS: Ht 156.2 cm; Wt 90.9 kg
[~2019-04-01 15:32] MED LIST changes: +ADVAIR HFA 230-12 GM INH; +PREDNISONE20 MG PO; +ZOVIRAX 5% CREAM5 GM TOPICAL
[2019-04-01 15:34] VITALS: Ht 156.2 cm; Wt 90.9 kg
[2019-04-01 15:59] LABS: BASOPHILS 0.8 % (0-2); EOSINOPHILS 3.1 % (0-7); HEMATOCRIT 34.5 % (36.0-48.0); HEMOGLOBIN 10.6 g/dL (12-16); IMMATURE GRANULOCYTES 0.1 % (0-5); LYMPHOCYTES 22.9 % (15-50); MCH 30.5 pg (26.0-34.0); MCHC 30.7 g/dL (31.0-37.0); MCV 99.1 fL (80.0-100.0); MEAN PLATELET VOLUME 8.6 fL (7.4-10.4); MONOCYTES 12.2 % (2-11); NEUTROPHILS 60.9 % (40-80); PLATELET COUNT 315 10x3/uL (130-400); RBC 3.48 10x6/uL (4.00-5.40); RDW 14.9 % (11.5-14.5); WBC 7.4 10x3/uL (4.8-10.8)
[2019-04-01 16:40] LABS: CALC OSMOLALITY 282 mosm/kg (275-300); CALCIUM 8.5 mg/dL (8.5-10.1); CARBON DIOXIDE 30.4 mmol/L (21.0-32.0); CHLORIDE - SERUM 106 mmol/L (98-107); CREATININE - SERUM 0.7 mg/dL (0.6-1.3); GLUCOSE 123 mg/dL (74-106); POTASSIUM - SERUM 3.8 mmol/L (3.5-5.1); SODIUM 141 mmol/L (136-145); UREA NITROGEN 14 mg/dL (7-18); eGFR NON AFRICAN AMERICAN 85 mL/min (90-120)
[2019-04-01 16:41] LABS: INR 3.16 (0.85-1.17); PROTIME 31.7 SECONDS (11.6-15.0)
[2019-04-01 16:46] LABS: ALBUMIN 2.5 g/dL (3.4-5.0); ALKALINE PHOSPHATASE 90 U/L (46-116); ALT (SGPT) 13 U/L (10-68); BILIRUBIN - TOTAL 0.44 mg/dL (0.2-1.3); PROTEIN - SERUM 6.8 g/dL (6.4-8.2)
[2019-04-01 20:50] VITALS: BP 116/62
== END 2019-04-01 20:50 | disposition home or self-care (01) ==
LOC: D.ER 15:32
PROVIDERS: Emergency Medicine
DX: R79.1 Abnormal coagulation profile (principal); D64.9 Anemia, unspecified; I48.91 Unspecified atrial fibrillation; I10 Essential (primary) hypertension; I25.2 Old myocardial infarction; J45.909 Unspecified asthma, uncomplicated; Z99.81 Dependence on supplemental oxygen

== ENCOUNTER 2019-04-10 14:45 | Inpatient (IN) | payer MEDICARE, OTHER ==
[~2019-04-10] VITALS: Ht 156.2 cm; Wt 93.5 kg
--- NOTE | 2019-04-10 14:57 | NUR ---
"WHILE I AM HERE I AM FEELING A LITTLE SOB AND WOULD LIKE TO BE CHECKED FOR BLOOD CLOTS IN MY LUNGS."
[2019-04-10 15:15] LABS: BASOPHILS 0.3 % (0-2); EOSINOPHILS 1.6 % (0-7); HEMATOCRIT 28.6 % (36.0-48.0); HEMOGLOBIN 8.6 g/dL (12-16); IMMATURE GRANULOCYTES 0.8 % (0-5); LYMPHOCYTES 10.8 % (15-50); MCH 28.8 pg (26.0-34.0); MCHC 30.1 g/dL (31.0-37.0); MCV 95.7 fL (80.0-100.0); MEAN PLATELET VOLUME 9.1 fL (7.4-10.4); MONOCYTES 11.7 % (2-11); NEUTROPHILS 74.8 % (40-80); PLATELET COUNT 312 10x3/uL (130-400); RBC 2.99 10x6/uL (4.00-5.40)
[2019-04-10 15:28] LABS: APTT 31.6 SECONDS (22.8-39.4); INR 1.36 (0.85-1.17); PROTIME 16.7 SECONDS (11.6-15.0)
[2019-04-10 15:30] LABS: CALC OSMOLALITY 285 mosm/kg (275-300); CALCIUM 8.1 mg/dL (8.5-10.1); CARBON DIOXIDE 32.4 mmol/L (21.0-32.0); CHLORIDE - SERUM 108 mmol/L (98-107); CREATININE - SERUM 0.5 mg/dL (0.6-1.3); GLUCOSE 138 mg/dL (74-106); POTASSIUM - SERUM 3.3 mmol/L (3.5-5.1); SODIUM 143 mmol/L (136-145); UREA NITROGEN 10 mg/dL (7-18); eGFR NON AFRICAN AMERICAN > 90 mL/min (90-120)
[2019-04-10 15:46] LABS: ALBUMIN 2.2 g/dL (3.4-5.0); ALKALINE PHOSPHATASE 85 U/L (46-116); ALT (SGPT) 14 U/L (10-68); BILIRUBIN - TOTAL 0.36 mg/dL (0.2-1.3); CKMB 0.8 U/L (0.0-3.6); CREATINE KINASE 39 UL (21-215); PRO BNP 1029 pg/mL (0-450); PROTEIN - SERUM 6.2 g/dL (6.4-8.2)
[2019-04-10 15:55] LABS: TROPONIN-I < 0.017 ng/mL (0.000-0.060)
[2019-04-10 16:30] VITALS: BP 159/80
--- NOTE | 2019-04-10 16:50 | NUR ---
OCCULT STOOL COMPLETED; RESULTS POSITIVE
[2019-04-10 17:00] LABS: % SATURATION 7 % (15-55); IRON 20 ug/dl (35-150); TOTAL IRON BIND CAPACITY 258 ug/dl (260-445); UNSAT IRON BIND CAPACITY 238 ug/dl (150-375)
--- NOTE | 2019-04-10 18:36 | NUR ---
URINE WICK PLACED ON PT FOR URINARY ASSISTANCE, ATTACHED TO LOW SUCTION.
[2019-04-10] MEDS ORDERED: ELIQUIS5 MG PO (18:38)
[2019-04-10] MEDS ORDERED: COREG 3.1253.125 MG PO (18:41)
[2019-04-10] MEDS ORDERED: ATIVAN0.5 MG PO (18:44)
[2019-04-10] MEDS ORDERED: K-TAB10 MEQ PO (18:45)
[2019-04-10] MEDS ORDERED: ZANAFLEX2 M1 PO (18:47)
[2019-04-10] MEDS ORDERED: DIOVAN320 MG PO (18:49)
--- NOTE | 2019-04-10 19:47 | NUR ---
PT ARRIVED TO ROOM VIA STRETCHER, FAMILY PRESENT AT BEDSIDE. NO NEEDS EXPRESSED AT THIS TIME.
[2019-04-10 20:00] VITALS: BP 151/59
[2019-04-10 20:41] LABS: HEMATOCRIT 28.4 % (36.0-48.0); HEMOGLOBIN 8.3 g/dL (12-16)
--- NOTE | 2019-04-10 21:37 | NUR ---
IV STARTED #20 TO INNER R FA WITH ATTEMPT X1. PT TOLERATED PROCEDURE WELL.
--- NOTE | 2019-04-10 22:58 | NUR ---
FIRST UNIT OF PRBCs STARTED TO 20G TO RIGHT FA.
[2019-04-10 23:38] VITALS: BP 160/70
--- NOTE | 2019-04-10 23:43 | NUR ---
FIRST UNIT OF PRBCs CONTINUE TO INFUSE. NO S/SX OF AN ADVERSE REACTION NOTED. PT RESTING QUIETLY IN BED WITH EYES CLOSED. NO NEEDS EXPRESSED. CALL LIGHT IN REACH. WILL CTM.
[2019-04-11 01:19] VITALS: BP 151/59; Ht 156.2 cm; Wt 93.5 kg
[2019-04-11 04:36] VITALS: BP 133/64
[2019-04-11 05:09] LABS: HEMATOCRIT 30.6 % (36.0-48.0); HEMOGLOBIN 9.5 g/dL (12-16)
[2019-04-11 08:00] VITALS: BP 103/49
--- NOTE | 2019-04-11 08:04 | NUR ---
REPORT RECIEVED. PT LYING SEMI FOWLERS IN BED. RR EVEN AND UNLABORED ON 3L NC. PT HAS A L AC PIV INFUSING PROTONIX @ 10 AND A R FA PIV THAT IS SL. BED LOCKED AND IN LOWEST POSITION, CALL LIGHT WITHIN REACH. WILL CTM
[2019-04-11 12:00] VITALS: BP 131/59
[2019-04-11] MEDS ORDERED: ULTRAM50 MG PO (13:42)
[2019-04-11 13:52] LABS: HEMATOCRIT 32.5 % (36.0-48.0); HEMOGLOBIN 9.8 g/dL (12-16)
[2019-04-11 16:00] VITALS: BP 104/88
[2019-04-11 19:02] LABS: APPEARANCE HAZY (CLEAR); COLOR YELLOW (YELLOW); GLUCOSE NEGATIVE (NEGATIVE); NITRITE NEGATIVE (NEGATIVE); PROTEIN NEGATIVE (NEGATIVE); SPECIFIC GRAVITY 1.015 (1.005-1.020)
[2019-04-11 19:03] LABS: BACTERIA FEW /hpf (NEGATIVE); BILIRUBIN NEGATIVE (NEGATIVE); EPITHELIAL CELLS 0-5 /hpf (0-5); KETONE SMALL mg/dL (NEGATIVE); RED CELLS - URINE 0-5 /hpf (0-5); UROBILINOGEN NORMAL (NORMAL); WHITE CELLS - URINE 0-5 /hpf (NEGATIVE)
--- NOTE | 2019-04-11 19:10 | NUR ---
REPORT RECEIVED. PT IN BED RR EVEN AND UNLABORED ON 3L NC. NO S/SX OF DISTRESS OBSERVED AT THIS TIME. PT HAD ONE UNIT OF PRBC LAST NIGHT, RECEIVED VERBAL ORDER FROM DR HOU TO NOT TRANSFUSE ADDITIONAL UNIT AT THIS TIME. NO FURHTER NEEDS EXPRESSED. CALL LIGHT IN REACH. WILL CTM.
[2019-04-11 20:30] VITALS: BP 165/54
[2019-04-11 21:24] LABS: HEMATOCRIT 30.6 % (36.0-48.0); HEMOGLOBIN 9.3 g/dL (12-16)
[2019-04-12 00:20] VITALS: BP 142/57
[2019-04-12 04:30] VITALS: BP 115/48
[2019-04-12 05:32] LABS: BASOPHILS 0.8 % (0-2); EOSINOPHILS 2.2 % (0-7); HEMATOCRIT 28.6 % (36.0-48.0); HEMOGLOBIN 8.6 g/dL (12-16); IMMATURE GRANULOCYTES 0.4 % (0-5); LYMPHOCYTES 21.9 % (15-50); MCHC 30.1 g/dL (31.0-37.0); MEAN PLATELET VOLUME 9.4 fL (7.4-10.4); MONOCYTES 17.3 % (2-11); NEUTROPHILS 57.4 % (40-80); PLATELET COUNT 272 10x3/uL (130-400); RBC 3.07 10x6/uL (4.00-5.40); RDW 15.8 % (11.5-14.5); WBC 7.6 10x3/uL (4.8-10.8)
[2019-04-12 05:44] LABS: ALKALINE PHOSPHATASE 75 U/L (46-116); BILIRUBIN - TOTAL 0.75 mg/dL (0.2-1.3); CALC OSMOLALITY 278 mosm/kg (275-300); CALCIUM 7.7 mg/dL (8.5-10.1); CARBON DIOXIDE 32.7 mmol/L (21.0-32.0); CHLORIDE - SERUM 105 mmol/L (98-107); GLUCOSE 94 mg/dL (74-106); MAGNESIUM - SERUM 1.4 mg/dL (1.8-2.4); POTASSIUM - SERUM 3.3 mmol/L (3.5-5.1); PROTEIN - SERUM 5.8 g/dL (6.4-8.2); SODIUM 141 mmol/L (136-145); UREA NITROGEN 8 mg/dL (7-18)
[2019-04-12 05:48] LABS: MCV 93.2 fL (80.0-100.0)
[2019-04-12 05:55] LABS: ALT (SGPT) 10 U/L (10-68); CREATININE - SERUM 0.7 mg/dL (0.6-1.3); eGFR NON AFRICAN AMERICAN 85 mL/min (90-120)
[2019-04-12 08:09] VITALS: BP 148/53
--- NOTE | 2019-04-12 10:47 | NUR ---
Rehab Note- Acute Inpatient Rehab prescreen order received. The patient has a pending PT & OT Eval at this time. Will follow to see the patient's funcitional mobility. Thank you for this referral! Shelia Mac RN Clinical Liaison, [facility] Rehab
[2019-04-12 11:32] VITALS: BP 132/51
[2019-04-12 13:37] LABS: HEMATOCRIT 30.6 % (36.0-48.0); HEMOGLOBIN 9.3 g/dL (12-16)
--- NOTE | 2019-04-12 14:36 | NUR ---
Rehab Note- The patient is refusing to participate with either OT or PT and states she just wants to go home. Spoke with Inge CM. Thank you for this referral! Shelia Mac RN Clinical Liaison, [facility] Rehab
[2019-04-12 15:22] VITALS: BP 125/44
--- NOTE | 2019-04-12 16:42 | MORECARE ---
CASE MANAGEMENT DISCHARGE SUMMARY PATIENT: VINAY SYED UNIT: [id number] ADM DATE: 04/10/19 AGE: 83 : 37 SEX: F ROOM/BED: D.2109 AUTHOR: KYE MCCORMICK PHYSICIAN: REFERRING PHYSICIAN: CAROL BARROW MD DATE OF SERVICE: 04/12/19 Discharge Plan Patient Name: VINAY SYED Facility: [facility]:[place] : 1935 Planned Disposition: Home with Home Health Anticipated Discharge Date: Discharge Date: Expected LOS: Initial Reviewer: [email or web address] Initial Review Date: 04/10/2019 Generated: 04/12/19 5:42 pm Patient Name: VINAY SYED Page [id number] at 1642 All edits/amendments must be made on the electronic document DICTATION DATE: 04/12/191641 TANK HOUSE SUPERVISOR: ANN 04/12/191641 RPT#: [id number] DC DATE: STATUS: ADM IN [facility] [address] [place] [address] END OF REPORT
--- NOTE | 2019-04-12 16:50 | MORECARE ---
CASE MANAGEMENT DISCHARGE SUMMARY PATIENT: VINAY SYED UNIT: [id number] ADM DATE: 04/10/19 AGE: 83 : 37 SEX: F ROOM/BED: D.8674 AUTHOR: KYE MCCORMICK PHYSICIAN: REFERRING PHYSICIAN: CAROL BARROW MD DATE OF SERVICE: 04/12/19 Discharge Plan Patient Name: VINAY SYED Facility: [facility]:[place] : 1935 Planned Disposition: Home with Home Health Anticipated Discharge Date: Discharge Date: Expected LOS: Initial Reviewer: [email or web address] Initial Review Date: 04/10/2019 Generated: 04/12/19 5:49 pm Comments DCP- Discharge Planning Updated by [id number]: Jayy Oseguera on 04/12/19 3:[address] Patient Name: VINAY SYED Admission Status: ER Accout number: [id number] Admission Date: 04-10-2019 : 1935 Admission Diagnosis:ANEMIA, UNSPECIFIED Attending: PAT Current LOS: 2 Anticipated DC Date: Planned Disposition: Home with Home Health Primary Insurance: MEDICARE A & B PLANNED EXTERNAL PROVIDER: [facility] Discharge Planning Comments: CM RECEIVED ORDER FOR INPATIENT REHAB PRESCREENING. CM SPOKE TO KANDY OF INPATIENT REHAB WHO INFORMED CM THAT PT HAS TOLD ALL THERAPISTS THAT SHE DOES NOT WANT REHAB PLACEMENT AND PLANS TO GO HOME WITH HER SPOUSE. CM MET WITH PT IN ROOM TO DISCUSS DISCHARGE PLANNING AND NEEDS. VINAY SYED provided verbal consent to discuss current and ongoing needs with/in the presence of: DAUGHTER, LORA. PT REPORTS LIVING AT HOME DEPENDENTLY WITH HER SPOUSE. PT HAS ASSISTANCE WITH GETTING INTO AND OUT OF BATHTUB. PT'S DAUGHTER COOKS AND ALSO ASSISTS IF NEEDED IN THE HOME. PT HAS PORTABLE OXYGEN SCOOTER, ADUSTABLE BED, TRANSFER WHEELCHAIR, NEBULIZER, SHOWER CHAIR WALKER AND WHEELCHAIR. PT HAS NO PREFERENCE ON PROVIDER OF MEDICAL EQUIPMENT. PT HAS [facility] AND WANTS THERAPY AT HOME. CM DISCUSSED AVAILABILITY OF HOME HEALTH, REHAB SERVICES AND MEDICAL EQUIPMENT. PT DENIES NEED FOR REHAB PLACEMENT, STATES SHE IS GOING NOWHERE BUT HOME. PT'S DAUGHTER IN AGREEMENT. PT REPORTS HER FAMILY WILL PICK HER UP FOR DISCHARGE HOME. IMPORTANT MESSAGE FROM MEDICARE PROVIDED AND EXPLAINED. PT SIGNED CHOICE FOR [facility], REFUSAL FOR REHAB PLACEMENT. PT PLANS TO DISCHARGE HOME WITH FAMILY AND [facility], REFUSED REHAB PLACEMENT. PT WANTS RESUPTION WITH [facility], CM WILL NEED NEW ORDER FOR HOME HEALTH PHYSICAL THERAPY TO COMPLETE HOME HEALTH RESUMPTION WITH [facility]. CM TO CONTINUE TO FOLLOW AND ASSIST NEEDED. Center Specialists: Jayy Oseguera DCPIA - Discharge Planning Initial Assessment Updated by [id number]: Jayy Oseguera on 04/12/19 4:43 pm * Is the patient Alert and Oriented? Yes * How many steps to enter\exit or inside your home? RAMP * PCP DR. MAHONEY * [facility]acy [facility] ON [address] * Preadmission Environment Home with Family * ADLs Partial Dependent * Partial ADLs (Assistance needed) Bathing * Equipment Nebulizer Other Oxygen Power Chair or Electric Scooter Shower Chair Walker Wheelchair * Other Equipment PORTABLE OXYGEN, [id number], ADJUSTABLE BED, TRANSFER WHEELCHAIR * List name and contact numbers for known caregivers / representatives who currently or will assist patient after discharge: LORA BILLS, DTR, * Verbal permission to speak to the caregivers and representatives has been obtained from the patient. Yes * Community resources currently utilized Home Health * Please name any agencies selected above. [facility] * Additional services required to return to the preadmission environment? No * Can the patient safely return to the preadmission environment? Yes * Has this patient been hospitalized within the prior 30 days at any hospital? Yes Last DP export: 04/12/19 3:43 p Patient Name: VINAY SYED Page [id number] at 1650 All edits/amendments must be made on the electronic document DICTATION DATE: 04/12/191648 PASTRY ASSISTANT: ANN 04/12/191648 RPT#: [id number] SC DATE: STATUS: ADM IN [facility] [address] [place] [address] END OF REPORT
[2019-04-12 20:00] VITALS: BP 141/53
--- NOTE | 2019-04-12 20:17 | NUR ---
REPORT RECIEVED AND ROUNDING COMPLETE. PATIENT LAYING IN BED IN LOW FOWLERS POSITION. PATIENT STATES SHE WOULD LIKE SOMETHING FOR PAIN. RATES HER PAIN 6/10 AND STATES SHE IS SORE ALL OVER, WILL TREAT PER MAR. PAYAM HAS NO OTHER NEEDS AT THIS TIME. PATIENT HAS A RIGHT FOREARM PIV AND A LEFT AC PIV BOTH APPEAR TO BE PATENT AT THIS TIME. IS GETTING A BREATHING TREATMENT AT THIS TIME. CALL LIGHT WITHIN REACH AND BED IN LOWEST LOCKED POSITION.
[2019-04-12 21:12] LABS: HEMATOCRIT 30.4 % (36.0-48.0); HEMOGLOBIN 9.2 g/dL (12-16)
[2019-04-13] VITALS: BP 137/65
--- NOTE | 2019-04-13 02:21 | NUR ---
I have reviewed this patient and I concur with the Shift Assessment completed by the Licensed Practical Nurse today this shift.
[2019-04-13 04:00] VITALS: BP 143/66
[2019-04-13 05:08] LABS: BASOPHILS 0.5 % (0-2); EOSINOPHILS 1.6 % (0-7); HEMATOCRIT 28.5 % (36.0-48.0); HEMOGLOBIN 8.7 g/dL (12-16); IMMATURE GRANULOCYTES 0.2 % (0-5); LYMPHOCYTES 22.4 % (15-50); MCH 28.1 pg (26.0-34.0); MCHC 30.5 g/dL (31.0-37.0); MCV 91.9 fL (80.0-100.0); MEAN PLATELET VOLUME 9.5 fL (7.4-10.4); MONOCYTES 13.8 % (2-11); NEUTROPHILS 61.5 % (40-80); PLATELET COUNT 266 10x3/uL (130-400); RDW 15.6 % (11.5-14.5)
[2019-04-13 05:26] LABS: WBC 9.6 10x3/uL (4.8-10.8)
[2019-04-13 05:48] LABS: ALBUMIN 2.1 g/dL (3.4-5.0); ALKALINE PHOSPHATASE 80 U/L (46-116); ALT (SGPT) 12 U/L (10-68); BILIRUBIN - TOTAL 0.85 mg/dL (0.2-1.3); CALC OSMOLALITY 276 mosm/kg (275-300); CALCIUM 7.6 mg/dL (8.5-10.1); CARBON DIOXIDE 31.2 mmol/L (21.0-32.0); CHLORIDE - SERUM 104 mmol/L (98-107); CREATININE - SERUM 0.6 mg/dL (0.6-1.3); GLUCOSE 96 mg/dL (74-106); MAGNESIUM - SERUM 1.5 mg/dL (1.8-2.4); POTASSIUM - SERUM 4.1 mmol/L (3.5-5.1); PROTEIN - SERUM 5.5 g/dL (6.4-8.2); SODIUM 139 mmol/L (136-145); UREA NITROGEN 10 mg/dL (7-18); eGFR NON AFRICAN AMERICAN > 90 mL/min (90-120)
[2019-04-13 07:58] VITALS: BP 137/58
--- NOTE | 2019-04-13 10:41 | NUR ---
IV THERAPY DC'ED FROM RIGHT FOREARM. TIP INTACT. ICE PACK GIVEN FOR WARMTH AND REDNESS. CL IN REACH. NO NEEDS AT THIS TIME. WCTM
[2019-04-13 11:37] VITALS: BP 122/43
[2019-04-13 13:21] LABS: HEMATOCRIT 30.3 % (36.0-48.0); HEMOGLOBIN 9.3 g/dL (12-16)
--- NOTE | 2019-04-13 14:11 | NUR ---
ASSISTED WITH BATHING. PATIENT HAS A COUPLE SORES THAT ARE RED AND BLANCHEABLE. CL IN REACH. NO NEEDS AT THIS TIME. TURNED ON SIDE. FALL PRECAUTIONS IN PLACE.
[2019-04-13 15:42] VITALS: BP 121/48
--- NOTE | 2019-04-13 19:15 | NUR ---
PATIENT RESTING IN BED WITH EYES OPEN. NO ACUTE S/S OF DISTRESS. NO COMPLAINTS AT THIS TIME. PATIENT IV IN L AC INFUSING MAG @ 25 ML/HR. IV WILL BE FLUSHED AND PROTONIX @ 10 ML/HR WILL BE RESUMED. IV IS PATENT WITHOUT REDNESS, SWELLING, OR TENDERNESS. PATIENT IS INCONINENT WITH A PURWICK CATHETER. PATIENT R ARM IS RED AND SWOLLEN BECAUSE OF INFILTRATED IV. PATIENT HAS SKIN TEAR ON L ELBOW FROM FALL THAT BROUGHT PATIENT TO HOSPITAL. PATIENT BOWEL SOUNDS ARE HYOACTIVE. PATIENT HAS THREE SORES ON BUTTOCKS. CALL LIGHT IN PLACE. WILL CONTINUE TO MONITOR.
[2019-04-13 20:27] VITALS: BP 117/41
[2019-04-13 22:18] LABS: HEMATOCRIT 29.2 % (36.0-48.0); HEMOGLOBIN 9.1 g/dL (12-16)
--- NOTE | 2019-04-13 23:50 | NUR ---
PT RESTING IN BED WITH EYES OPEN. ALERT AND ORIENTED x4 PT STATES NO COMPLAINTS AT THIS TIME. WILL CONTINUE TO MONITOR.
[2019-04-14 00:56] VITALS: BP 135/64
--- NOTE | 2019-04-14 03:21 | NUR ---
PT LYING IN BED RESTING WITH EYES CLOSED. EASILY AWAKEN WITH VERBAL STIMULATION. LEFT AC IV INFUSING PROTONIX @10ML/HR. REPOSITIONED PT FOR COMFORT. NO COMPLAINTS OF PAIN AT THIS TIME. BOWELL SOUNDS ACTIVEx4. TELEMETRY 86 SINUS RYTHUM. RESPIRATIONS EVEN AND UNLABORED. NO SIGNS OR SYMPTOMS OF DISTRESS NOTED. SKIN TEAR NOTED TO LEFT ELBOW. PT HAS NO COMPLAINTS AT THIS TIME. BED IN LOWEST POSITIONS AND CALL LIGHT IS WITH IN REACH. PT ADVISED TO CALL FOR HELP WHEN GETTING IN AND OUT OF BED. WILL CONTINUE TO OBSERVE
--- NOTE | 2019-04-14 04:27 | NUR ---
PT HAS CARLOS EDUARDO PEPE. BED SORES NOTED TO BUTTOCKS AREA.
[2019-04-14 05:19] VITALS: BP 131/52
[2019-04-14 06:08] LABS: INR 1.55 (0.85-1.17); PROTIME 18.4 SECONDS (11.6-15.0)
[2019-04-14 06:25] LABS: BASOPHILS 0.8 % (0-2); EOSINOPHILS 2.8 % (0-7); HEMATOCRIT 28.2 % (36.0-48.0); HEMOGLOBIN 8.7 g/dL (12-16); IMMATURE GRANULOCYTES 0.3 % (0-5); MCH 28.1 pg (26.0-34.0); MCHC 30.9 g/dL (31.0-37.0); MEAN PLATELET VOLUME 9.6 fL (7.4-10.4); MONOCYTES 15.3 % (2-11); NEUTROPHILS 59.8 % (40-80); PLATELET COUNT 282 10x3/uL (130-400); RDW 15.4 % (11.5-14.5); WBC 7.9 10x3/uL (4.8-10.8)
[2019-04-14 06:48] LABS: ALKALINE PHOSPHATASE 77 U/L (46-116); ALT (SGPT) 8 U/L (10-68); BILIRUBIN - TOTAL 0.76 mg/dL (0.2-1.3); CALC OSMOLALITY 277 mosm/kg (275-300); CALCIUM 7.9 mg/dL (8.5-10.1); CARBON DIOXIDE 30.3 mmol/L (21.0-32.0); CHLORIDE - SERUM 105 mmol/L (98-107); CREATININE - SERUM 0.6 mg/dL (0.6-1.3); GLUCOSE 103 mg/dL (74-106); POTASSIUM - SERUM 3.9 mmol/L (3.5-5.1); SODIUM 140 mmol/L (136-145); UREA NITROGEN 9 mg/dL (7-18); eGFR NON AFRICAN AMERICAN > 90 mL/min (90-120)
--- NOTE | 2019-04-14 10:17 | NUR ---
PT SITTING UP IN BED RESTING QUIETLY TALKING ON THE PHONE. PT DENIES ANY CURRENT PAIN OR NEEDS AT THIS TIME. CL IN REACH, BED IN LOWEST, SIDE RAILS X2. WILL CPOC.
[2019-04-14 10:38] VITALS: BP 125/50
[2019-04-14 13:15] LABS: HEMOGLOBIN 9.8 g/dL (12-16)
[2019-04-14] MEDS ORDERED: COUMADIN5 MG PO (14:06)
[2019-04-14 15:26] VITALS: BP 124/61
--- NOTE | 2019-04-14 15:49 | NUR ---
PT VERY UPSET AND TEARFUL STATING SHE CANT GET INTO A W/C AND SHE IS IN PAIN AND ITS NOT FAIR THEY WONT GIVE HER REHAB HOWEVER SHE HAS BEEN OFFERED MULTIPLE TIMES AND REFUSES IT. DAUGHTER AT BEDSIDE AND STATES THEY WILL JUST HAVE TO GO BY AMBULANCE AND UNDERSTANDS SHE IS NOT BEDBOUND SO INSURANCE MAY NOT COVER IT. THEY BOTH VERBALIZED UNDERSTANDING. PROVIDED PT WITH ANXIETY MEDICATION AND PAIN MEDICATION REQUESTED. WILL DISCUSS WITH CASE MANAGEMENT. NO IMMEDIATE NEEDS.
--- NOTE | 2019-04-14 18:21 | MORECARE ---
CASE MANAGEMENT DISCHARGE SUMMARY PATIENT: VINAY SYED UNIT: [id number] ADM DATE: 04/10/19 AGE: 83 : 37 SEX: F ROOM/BED: D.3021 AUTHOR: ANNY,DOC PHYSICIAN: REFERRING PHYSICIAN: CAROL BARROW MD DATE OF SERVICE: 04/14/19 Discharge Plan Patient Name: VINAY SYED Facility: [facility]:[place] : 1935 Planned Disposition: Home with Home Health Anticipated Discharge Date: 04/14/19 Discharge Date: Expected LOS: 4 Initial Reviewer: [id number] Initial Review Date: 04/10/2019 Generated: 04/14/19 7:20 pm Comments DCP- Discharge Planning Updated by [id number]: Jayy Oseguera on 04/14/19 5:[address] Patient Name: VINAY SYED Encounter No: [id number] : 1935 Primary Insurance: MEDICARE A & B Anticipated DC Date: 04-14-2019 Planned Disposition: Home with Home Health External Planned Provider: [facility] DCP follow-up note: BLAKE RECEIVED DISCHARGE ORDER, NOTIFIED [facility] AT [phone] OF RESUMPTION AND NEED FOR PT INR TESTING. [facility] WILL SEE SOON POSSIBLE AND CONTACT DOCTOR FOR MORE DETAILED INSTRUCTIONS. IVANA RENO FAXED DISCHARGE INFORMATION TO [facility] AT [phone]. ORGANIC SECTION TECHNICAL LEAD NOTIFIED. BLAKE RECEIVED CALL FROM PT'S DAUGHTER WHO INFORMED CM THAT THEY WANTED PT TO HAVE THE TEST WHERE PT SWALLOWS CAMERA. CM EXPLAINED THAT PT IS STABLE FOR DISCHARGE AND THEY WOULD BE CONSIDERED OUTPATIENT TEST THE DOCTOR DID NOT FEEL THIS WAS NECESSARY AT THIS TIME. PT'S DAUGHTER STATES THAT THEY CANNOT GET PT INTO A CAR AND OUT OF THE CAR TO GET HER HOME. BLAKE EXPLAINED THAT DISCUSSED WITH PT AND OTHER DAUGHTER IN ROOM, PT HAS REFUSED THERAPY SERVICES AND REFUSED [facility] OR INPATIENT REHAB SERVICES. PT WAS TRANSFERRING TO WHEELCHAIR AND BEDSIDE COMMODE AND PER BEDSIDE NURSE THIS EVENING, PT WILL NOT QUALIFY FOR AMBULANCE. CM EXPLAINED THAT IF HOSPITAL STAFF COULD ASSIST THEM IN GETTING PT INTO THE CAR, THEY COULD CALL [facility] AFTER ARRIVAL AT HOME TO ASSIST WITH GETTING PT INTO THE HOUSE. CM ALSO EXPLAINED THAT THEY MAY CALL [facility] TO MAKE FINANCIAL ARRANGEMENTS FOR AMBULANCE TRANSPORT HOME. SHE ASKED CM TO SPEAK TO THE PATIENT AND OTHER DAUGHTER IN THE ROOM. CM MET WITH PT AND LORA IN ROOM. CM EXPLAINED THE ABOVE AGAIN IN DETAIL. PT STILL REFUSED TO GO TO REHAB OR [facility] RE[facility]AB. PT STATES SHE IS GOING HOME. CM ASKED ABOUT HER CARE AT HOME, PT'S DAUGHTER REPORTS THEY HAVE CAREGIVERS AND FAMILY TO ASSIST. PT IS NOT WANTING TO PAY FOR AMBULANCE TRANSPORT HOME. PT NOR DAUGHTER RESPONDED TO HAVING STAFF HELP PT GET INTO THE CAR AND HAVING [facility] ASSIST GETTING PT IN THE HOME FOR FREE AFTER ARRIVAL AT HOME. CM PROVIDED INFORMATION TO PT REGARDING MODIFIED MOBILE NON EMERGENCY MEDICAL TRANSPORTATION. THEY ARE CONSIDERING OPTIONS FOR TRANSPORT HOME. BEDSIDE NURSE NOTIFIED. Jayy Oseguera, CASE MANAGEMENT DCP- Discharge Planning Updated by [id number]: Jayy Oseguera on 04/12/19 3:[address] Patient Name: VINAY SYED Admission Status: ER Accout number: [id number] Admission Date: 04-10-2019 : 1935 Admission Diagnosis:ANEMIA, UNSPECIFIED Attending: PAT Current LOS: 2 Anticipated DC Date: Planned Disposition: Home with Home Health Primary Insurance: MEDICARE A & B PLANNED EXTERNAL PROVIDER: [facility] Discharge Planning Comments: CM RECEIVED ORDER FOR INPATIENT REHAB PRESCREENING. CM SPOKE TO KANDY OF INPATIENT REHAB WHO INFORMED CM THAT PT HAS TOLD ALL THERAPISTS THAT SHE DOES NOT WANT REHAB PLACEMENT AND PLANS TO GO HOME WITH HER SPOUSE. CM MET WITH PT IN ROOM TO DISCUSS DISCHARGE PLANNING AND NEEDS. VINAY SYED provided verbal consent to discuss current and ongoing needs with/in the presence of: DAUGHTERLORA. PT REPORTS LIVING AT HOME DEPENDENTLY WITH HER SPOUSE. PT HAS ASSISTANCE WITH GETTING INTO AND OUT OF BATHTUB. PT'S DAUGHTER COOKS AND ALSO ASSISTS IF NEEDED IN THE HOME. PT HAS PORTABLE OXYGEN SCOOTER, ADUSTABLE BED, TRANSFER WHEELCHAIR, NEBULIZER, SHOWER CHAIR WALKER AND WHEELCHAIR. PT HAS NO PREFERENCE ON PROVIDER OF MEDICAL EQUIPMENT. PT HAS [facility] AND WANTS THERAPY AT HOME. CM DISCUSSED AVAILABILITY OF HOME HEALTH, REHAB SERVICES AND MEDICAL EQUIPMENT. PT DENIES NEED FOR REHAB PLACEMENT, STATES SHE IS GOING NOWHERE BUT HOME. PT'S DAUGHTER IN AGREEMENT. PT REPORTS HER FAMILY WILL PICK HER UP FOR DISCHARGE HOME. IMPORTANT MESSAGE FROM MEDICARE PROVIDED AND EXPLAINED. PT SIGNED CHOICE FOR [facility], REFUSAL FOR REHAB PLACEMENT. PT PLANS TO DISCHARGE HOME WITH FAMILY AND [facility], REFUSED REHAB PLACEMENT. PT WANTS RESUPTION WITH [facility], CM WILL NEED NEW ORDER FOR HOME HEALTH PHYSICAL THERAPY TO COMPLETE HOME HEALTH RESUMPTION WITH [facility]. CM TO CONTINUE TO FOLLOW AND ASSIST NEEDED. Medical Van Driver: Jayy Oseguera DCPIA - Discharge Planning Initial Assessment Updated by [id number]: Jayy Oseguera on 04/12/19 4:43 pm * Is the patient Alert and Oriented? Yes * How many steps to enter\exit or inside your home? RAMP * PCP DR. MAHONEY * [facility]acy [facility] ON [address] * Preadmission Environment Home with Family * ADLs Partial Dependent * Partial ADLs (Assistance needed) Bathing * Equipment Nebulizer Other Oxygen Power Chair or Electric Scooter Shower Chair Walker Wheelchair * Other Equipment PORTABLE OXYGEN, [id number], ADJUSTABLE BED, TRANSFER WHEELCHAIR * List name and contact numbers for known caregivers / representatives who currently or will assist patient after discharge: LORA BILLS, DTR, * Verbal permission to speak to the caregivers and representatives has been obtained from the patient. Yes * Community resources currently utilized Home Health * Please name any agencies selected above. [facility] * Additional services required to return to the preadmission environment? No * Can the patient safely return to the preadmission environment? Yes * Has this patient been hospitalized within the prior 30 days at any hospital? Yes Last DP export: 04/12/19 3:49 p Patient Name: VINAY SYED Page 40768 at 1821 All edits/amendments must be made on the electronic document DICTATION DATE: 04/14/191819 CHIEF SCHOOL FINANCE OFFICER: ANN 04/14/191819 RPT#: [id number] [place] DATE: STATUS: ADM IN [facility] [address] [place] [address] END OF REPORT
--- NOTE | 2019-04-14 18:29 | MORECARE ---
CASE MANAGEMENT DISCHARGE SUMMARY PATIENT: VINAY SYED UNIT: [id number] ADM DATE: 04/10/19 AGE: 83 : 37 SEX: F ROOM/BED: D.6696 AUTHOR: ANNY,DOC PHYSICIAN: REFERRING PHYSICIAN: CAROL BARROW MD DATE OF SERVICE: 04/14/19 Discharge Plan Patient Name: VINAY SYED Facility: [facility]:[place] : 1935 Planned Disposition: Home with Home Health Anticipated Discharge Date: 04/14/19 Discharge Date: Expected LOS: 4 Initial Reviewer: [id number] Initial Review Date: 04/10/2019 Generated: 04/14/19 7:29 pm Comments DCP- Discharge Planning Updated by [id number]: Jayy Oseguera on 04/14/19 5:[address] Patient Name: VINAY SYED Encounter No: [id number] : 1935 Primary Insurance: MEDICARE A & B Anticipated DC Date: 04-14-2019 Planned Disposition: Home with Home Health External Planned Provider: [facility] DCP follow-up note: BLAKE RECEIVED DISCHARGE ORDER, NOTIFIED [facility] AT [phone] OF RESUMPTION AND NEED FOR PT INR TESTING. [facility] WILL SEE SOON POSSIBLE AND CONTACT DOCTOR FOR MORE DETAILED INSTRUCTIONS. IVANA RENO FAXED DISCHARGE INFORMATION TO [facility] AT [phone]. GOURMET COFFEE ATTENDANT NOTIFIED. BLAKE RECEIVED CALL FROM PT'S DAUGHTER WHO INFORMED CM THAT THEY WANTED PT TO HAVE THE TEST WHERE PT SWALLOWS CAMERA. CM EXPLAINED THAT PT IS STABLE FOR DISCHARGE AND THEY WOULD BE CONSIDERED OUTPATIENT TEST THE DOCTOR DID NOT FEEL THIS WAS NECESSARY AT THIS TIME. PT'S DAUGHTER STATES THAT THEY CANNOT GET PT INTO A CAR AND OUT OF THE CAR TO GET HER HOME. BLAKE EXPLAINED THAT DISCUSSED WITH PT AND OTHER DAUGHTER IN ROOM, PT HAS REFUSED THERAPY SERVICES AND REFUSED INTERMEDIATE OR INPATIENT REHAB SERVICES. PT WAS TRANSFERRING TO WHEELCHAIR AND BEDSIDE COMMODE AND PER BEDSIDE NURSE THIS EVENING, PT WILL NOT QUALIFY FOR AMBULANCE. CM EXPLAINED THAT IF HOSPITAL STAFF COULD ASSIST THEM IN GETTING PT INTO THE CAR, THEY COULD CALL [employer] AFTER ARRIVAL AT HOME TO ASSIST WITH GETTING PT INTO THE HOUSE. CM ALSO EXPLAINED THAT THEY MAY CALL [employer] TO MAKE FINANCIAL ARRANGEMENTS FOR AMBULANCE TRANSPORT HOME. SHE ASKED CM TO SPEAK TO THE PATIENT AND OTHER DAUGHTER IN THE ROOM. CM MET WITH PT AND LORA IN ROOM. CM EXPLAINED THE ABOVE AGAIN IN DETAIL. PT STILL REFUSED TO GO TO REHAB OR INTERMEDIATE REHAB. PT STATES SHE IS GOING HOME. CM ASKED ABOUT HER CARE AT HOME, PT'S DAUGHTER REPORTS THEY HAVE CAREGIVERS AND FAMILY TO ASSIST. PT IS NOT WANTING TO PAY FOR AMBULANCE TRANSPORT HOME. PT NOR DAUGHTER RESPONDED TO HAVING STAFF HELP PT GET INTO THE CAR AND HAVING [employer] ASSIST GETTING PT IN THE HOME FOR FREE AFTER ARRIVAL AT HOME. CM PROVIDED INFORMATION TO PT REGARDING MODIFIED MOBILE NON EMERGENCY MEDICAL TRANSPORTATION. THEY ARE CONSIDERING OPTIONS FOR TRANSPORT HOME. BEDSIDE NURSE NOTIFIED. Jayy Oseguera, CASE MANAGEMENT DCP- Discharge Planning Updated by [id number]: Jayy Oseguera on 04/12/19 3:[address] Patient Name: VINAY SYED Admission Status: ER Accout number: [id number] Admission Date: 04-10-2019 : 1935 Admission Diagnosis:ANEMIA, UNSPECIFIED Attending: PAT Current LOS: 2 Anticipated DC Date: Planned Disposition: Home with Home Health Primary Insurance: MEDICARE A & B PLANNED EXTERNAL PROVIDER: [facility] Discharge Planning Comments: CM RECEIVED ORDER FOR INPATIENT REHAB PRESCREENING. CM SPOKE TO KANDY OF INPATIENT REHAB WHO INFORMED CM THAT PT HAS TOLD ALL THERAPISTS THAT SHE DOES NOT WANT REHAB PLACEMENT AND PLANS TO GO HOME WITH HER SPOUSE. CM MET WITH PT IN ROOM TO DISCUSS DISCHARGE PLANNING AND NEEDS. VINAY SYED provided verbal consent to discuss current and ongoing needs with/in the presence of: DAUGHTERLORA. PT REPORTS LIVING AT HOME DEPENDENTLY WITH HER SPOUSE. PT HAS ASSISTANCE WITH GETTING INTO AND OUT OF BATHTUB. PT'S DAUGHTER COOKS AND ALSO ASSISTS IF NEEDED IN THE HOME. PT HAS PORTABLE OXYGEN SCOOTER, ADUSTABLE BED, TRANSFER WHEELCHAIR, NEBULIZER, SHOWER CHAIR WALKER AND WHEELCHAIR. PT HAS NO PREFERENCE ON PROVIDER OF MEDICAL EQUIPMENT. PT HAS [facility] AND WANTS THERAPY AT HOME. CM DISCUSSED AVAILABILITY OF HOME HEALTH, REHAB SERVICES AND MEDICAL EQUIPMENT. PT DENIES NEED FOR REHAB PLACEMENT, STATES SHE IS GOING NOWHERE BUT HOME. PT'S DAUGHTER IN AGREEMENT. PT REPORTS HER FAMILY WILL PICK HER UP FOR DISCHARGE HOME. IMPORTANT MESSAGE FROM MEDICARE PROVIDED AND EXPLAINED. PT SIGNED CHOICE FOR [facility], REFUSAL FOR REHAB PLACEMENT. PT PLANS TO DISCHARGE HOME WITH FAMILY AND [facility], REFUSED REHAB PLACEMENT. PT WANTS RESUPTION WITH [facility], CM WILL NEED NEW ORDER FOR HOME HEALTH PHYSICAL THERAPY TO COMPLETE HOME HEALTH RESUMPTION WITH [facility]. CM TO CONTINUE TO FOLLOW AND ASSIST NEEDED. Online Program Coordinator: Jayy Oseguera DCPIA - Discharge Planning Initial Assessment Updated by [id number]: Jayy Oseguera on 04/14/19 6:26 pm * Is the patient Alert and Oriented? Yes * How many steps to enter\exit or inside your home? RAMP * PCP DR. MAHONEY * Pharmacy [facility] ON [address] * Preadmission Environment Home with Family * ADLs Partial Dependent * Partial ADLs (Assistance needed) Bathing * Equipment Nebulizer Other Oxygen Power Chair or Electric Scooter Shower Chair Walker Wheelchair * Other Equipment PORTABLE OXYGEN, [id number], ADJUSTABLE BED, TRANSFER WHEELCHAIR * List name and contact numbers for known caregivers / representatives who currently or will assist patient after discharge: LORA BILLS, DTR, TONE LOWE, DTR, * Verbal permission to speak to the caregivers and representatives has been obtained from the patient. Yes * Community resources currently utilized Home Health * Please name any agencies selected above. [facility] * Additional services required to return to the preadmission environment? No * Can the patient safely return to the preadmission environment? Yes * Has this patient been hospitalized within the prior 30 days at any hospital? Yes Last DP export: 04/14/19 5:21 p Patient Name: VINAY SEYD Page [id number] at 3589 All edits/amendments must be made on the electronic document DICTATION DATE: 04/14/191828 BIOLOGICAL ENGINEER: ANN 04/14/191828 RPT#: [id number] DC DATE: STATUS: ADM IN [facility] [address] [place] [address] END OF REPORT
--- NOTE | 2019-04-14 22:57 | NUR ---
PT LFA IV DC'D. PT TRANSFERED TO WHEELCHAIR. DISCHARGE INSTRUCTIONS GIVEN.
--- NOTE | 2019-04-15 07:45 | MORECARE ---
CASE MANAGEMENT DISCHARGE SUMMARY PATIENT: VINAY SYED UNIT: [id number] ADM DATE: 04/10/19 AGE: 83 : 37 SEX: F ROOM/BED: D.9399 AUTHOR: ANNY,DOC PHYSICIAN: REFERRING PHYSICIAN: CAROL BARROW MD DATE OF SERVICE: 04/15/19 Discharge Plan Patient Name: VINAY SYED Facility: [facility]:[place] : 1935 Planned Disposition: Home with Home Health Anticipated Discharge Date: 04/14/19 Discharge Date: 04/14/2019 Expected LOS: 4 Initial Reviewer: [email or web address] Initial Review Date: 04/10/2019 Generated: 04/15/19 8:45 am Comments DCP- Discharge Planning Updated by [id number]: Jayy Oseguera on 04/14/19 5:[address] Patient Name: VINAY SYED Encounter No: [id number] : 1935 Primary Insurance: MEDICARE A & B Anticipated DC Date: 04-14-2019 Planned Disposition: Home with Home Health External Planned Provider: [facility] DCP follow-up note: BLAKE RECEIVED DISCHARGE ORDER, NOTIFIED [facility] AT [phone] OF RESUMPTION AND NEED FOR PT INR TESTING. SIS WILL SEE SOON POSSIBLE AND CONTACT DOCTOR FOR MORE DETAILED INSTRUCTIONS. IVANA RENO FAXED DISCHARGE INFORMATION TO [facility] AT [phone]. OPTOMETRIST/PRACTICE OWNER NOTIFIED. BLAKE RECEIVED CALL FROM PT'S DAUGHTER WHO INFORMED CM THAT THEY WANTED PT TO HAVE THE TEST WHERE PT SWALLOWS CAMERA. CM EXPLAINED THAT PT IS STABLE FOR DISCHARGE AND THEY WOULD BE CONSIDERED OUTPATIENT TEST THE DOCTOR DID NOT FEEL THIS WAS NECESSARY AT THIS TIME. PT'S DAUGHTER STATES THAT THEY CANNOT GET PT INTO A CAR AND OUT OF THE CAR TO GET HER HOME. BLAKE EXPLAINED THAT DISCUSSED WITH PT AND OTHER DAUGHTER IN ROOM, PT HAS REFUSED THERAPY SERVICES AND REFUSED RETIREMENT OR INPATIENT REHAB SERVICES. PT WAS TRANSFERRING TO WHEELCHAIR AND BEDSIDE COMMODE AND PER BEDSIDE NURSE THIS EVENING, PT WILL NOT QUALIFY FOR AMBULANCE. CM EXPLAINED THAT IF HOSPITAL STAFF COULD ASSIST THEM IN GETTING PT INTO THE CAR, THEY COULD CALL [facility] AFTER ARRIVAL AT HOME TO ASSIST WITH GETTING PT INTO THE HOUSE. CM ALSO EXPLAINED THAT THEY MAY CALL [facility] TO MAKE FINANCIAL ARRANGEMENTS FOR AMBULANCE TRANSPORT HOME. SHE ASKED CM TO SPEAK TO THE PATIENT AND OTHER DAUGHTER IN THE ROOM. CM MET WITH PT AND LORA IN ROOM. CM EXPLAINED THE ABOVE AGAIN IN DETAIL. PT STILL REFUSED TO GO TO REHAB OR RETIREMENT REHAB. PT STATES SHE IS GOING HOME. CM ASKED ABOUT HER CARE AT HOME, PT'S DAUGHTER REPORTS THEY HAVE CAREGIVERS AND FAMILY TO ASSIST. PT IS NOT WANTING TO PAY FOR AMBULANCE TRANSPORT HOME. PT NOR DAUGHTER RESPONDED TO HAVING STAFF HELP PT GET INTO THE CAR AND HAVING [facility] ASSIST GETTING PT IN THE HOME FOR FREE AFTER ARRIVAL AT HOME. CM PROVIDED INFORMATION TO PT REGARDING MODIFIED MOBILE NON EMERGENCY MEDICAL TRANSPORTATION. THEY ARE CONSIDERING OPTIONS FOR TRANSPORT HOME. BEDSIDE NURSE NOTIFIED. Jayy Oseguera, CASE MANAGEMENT DCP- Discharge Planning Updated by [id number]: Jayy Oseguera on 04/12/19 3:[address] Patient Name: VINAY SYED Admission Status: ER Accout number: [id number] Admission Date: 04-10-2019 : 1935 Admission Diagnosis:ANEMIA, UNSPECIFIED Attending: PAT Current LOS: 2 Anticipated DC Date: Planned Disposition: Home with Home Health Primary Insurance: MEDICARE A & B PLANNED EXTERNAL PROVIDER: [facility] Discharge Planning Comments: CM RECEIVED ORDER FOR INPATIENT REHAB PRESCREENING. CM SPOKE TO KANDY OF INPATIENT REHAB WHO INFORMED CM THAT PT HAS TOLD ALL THERAPISTS THAT SHE DOES NOT WANT REHAB PLACEMENT AND PLANS TO GO HOME WITH HER SPOUSE. CM MET WITH PT IN ROOM TO DISCUSS DISCHARGE PLANNING AND NEEDS. VINAY SYED provided verbal consent to discuss current and ongoing needs with/in the presence of: DAUGHTERLORA. PT REPORTS LIVING AT HOME DEPENDENTLY WITH HER SPOUSE. PT HAS ASSISTANCE WITH GETTING INTO AND OUT OF BATHTUB. PT'S DAUGHTER COOKS AND ALSO ASSISTS IF NEEDED IN THE HOME. PT HAS PORTABLE OXYGEN SCOOTER, ADUSTABLE BED, TRANSFER WHEELCHAIR, NEBULIZER, SHOWER CHAIR WALKER AND WHEELCHAIR. PT HAS NO PREFERENCE ON PROVIDER OF MEDICAL EQUIPMENT. PT HAS [facility] AND WANTS THERAPY AT HOME. CM DISCUSSED AVAILABILITY OF HOME HEALTH, REHAB SERVICES AND MEDICAL EQUIPMENT. PT DENIES NEED FOR REHAB PLACEMENT, STATES SHE IS GOING NOWHERE BUT HOME. PT'S DAUGHTER IN AGREEMENT. PT REPORTS HER FAMILY WILL PICK HER UP FOR DISCHARGE HOME. IMPORTANT MESSAGE FROM MEDICARE PROVIDED AND EXPLAINED. PT SIGNED CHOICE FOR [facility], REFUSAL FOR REHAB PLACEMENT. PT PLANS TO DISCHARGE HOME WITH FAMILY AND [facility], REFUSED REHAB PLACEMENT. PT WANTS RESUPTION WITH [facility], CM WILL NEED NEW ORDER FOR HOME HEALTH PHYSICAL THERAPY TO COMPLETE HOME HEALTH RESUMPTION WITH [facility]. CM TO CONTINUE TO FOLLOW AND ASSIST NEEDED. Prison Psychiatrist: Jayy Oseguera DCPIA - Discharge Planning Initial Assessment Updated by [id number]: Jayy Oseguera on 04/14/19 6:26 pm * Is the patient Alert and Oriented? Yes * How many steps to enter\exit or inside your home? RAMP * PCP DR. MAHONEY * Pharmacy [facility] ON [address] * Preadmission Environment Home with Family * ADLs Partial Dependent * Partial ADLs (Assistance needed) Bathing * Equipment Nebulizer Other Oxygen Power Chair or Electric Scooter Shower Chair Walker Wheelchair * Other Equipment PORTABLE OXYGEN, [id number], ADJUSTABLE BED, TRANSFER WHEELCHAIR * List name and contact numbers for known caregivers / representatives who currently or will assist patient after discharge: LORA BILLS, DTR, TONE LOWE, DTR, * Verbal permission to speak to the caregivers and representatives has been obtained from the patient. Yes * Community resources currently utilized Home Health * Please name any agencies selected above. [facility] * Additional services required to return to the preadmission environment? No * Can the patient safely return to the preadmission environment? Yes * Has this patient been hospitalized within the prior 30 days at any hospital? Yes Last DP export: 04/14/19 5:30 p Patient Name: VINAY SYED Page [id number] at 0745 All edits/amendments must be made on the electronic document DICTATION DATE: 04/15/19743 SMOKE CHASER: ANN 04/15/19743 RPT#: [id number] DC DATE:04/14/19 STATUS: DIS IN [facility] [address] [place] [address] END OF REPORT
== END 2019-04-14 22:59 | disposition home health service (06) | DRG 812 ==
LOC: D.ER 14:45 → D.M2 18:36
PROVIDERS: Emergency Medicine; Family Medicine; Internal Medicine Nephrology; ADMIT Family Medicine; ATTEND Family Medicine
DX: D64.9 Anemia, unspecified (principal); W18.30XA Fall on same level, unspecified, initial encounter; I10 Essential (primary) hypertension; I25.10 Atherosclerotic heart disease of native coronary artery without angina pectoris; Z79.01 Long term (current) use of anticoagulants; K21.9 Gastro-esophageal reflux disease without esophagitis; K44.9 Diaphragmatic hernia without obstruction or gangrene; E66.9 Obesity, unspecified; E87.6 Hypokalemia; M25.522 Pain in left elbow; M25.512 Pain in left shoulder; M25.552 Pain in left hip; R19.5 Other fecal abnormalities; R26.89 Other abnormalities of gait and mobility; R42 Dizziness and giddiness; R53.81 Other malaise; J45.909 Unspecified asthma, uncomplicated; F32.9 Major depressive disorder, single episode, unspecified; Z86.711 Personal history of pulmonary embolism; Z86.718 Personal history of other venous thrombosis and embolism

== ENCOUNTER → 2019-05-31 13:27 | Outpatient (CLI) | payer MEDICARE, OTHER ==
[~2019-05-31 13:27] MED LIST changes: +COREG 3.1253.125 MG PO; +ELIQUIS5 MG PO; +ZANAFLEX2 M1 PO
[2019-05-31 15:45] LABS: BASOPHILS 1.5 % (0-2); EOSINOPHILS 4.2 % (0-7); HEMATOCRIT 26.8 % (36.0-48.0); HEMOGLOBIN 8.2 g/dL (12-16); IMMATURE GRANULOCYTES 0.2 % (0-5); LYMPHOCYTES 31.7 % (15-50); MCH 27.5 pg (26.0-34.0); MCHC 30.6 g/dL (31.0-37.0); MCV 89.9 fL (80.0-100.0); MEAN PLATELET VOLUME 8.6 fL (7.4-10.4); MONOCYTES 13.9 % (2-11); NEUTROPHILS 48.5 % (40-80); PLATELET COUNT 321 10x3/uL (130-400); RBC 2.98 10x6/uL (4.00-5.40); RDW 17.1 % (11.5-14.5)
[2019-05-31 16:12] LABS: INR 1.6 (0.85-1.17); PROTIME 18.9 SECONDS (11.6-15.0)
== END | disposition home or self-care (01) ==
LOC: D.LABREF 13:27
PROVIDERS: ATTEND Family Medicine
DX: D62 Acute posthemorrhagic anemia (principal); I48.91 Unspecified atrial fibrillation

== ENCOUNTER → 2019-06-07 17:03 | Outpatient (CLI) | payer MEDICARE, OTHER ==
[2019-06-07 17:13] LABS: BASOPHILS 0.7 % (0-2); EOSINOPHILS 3.8 % (0-7); HEMATOCRIT 28.3 % (36.0-48.0); HEMOGLOBIN 8.5 g/dL (12-16); IMMATURE GRANULOCYTES 0.2 % (0-5); LYMPHOCYTES 28.8 % (15-50); MCH 27.3 pg (26.0-34.0); MEAN PLATELET VOLUME 8.8 fL (7.4-10.4); MONOCYTES 12.9 % (2-11); NEUTROPHILS 53.6 % (40-80); PLATELET COUNT 339 10x3/uL (130-400); RBC 3.11 10x6/uL (4.00-5.40); RDW 16.9 % (11.5-14.5); WBC 5.5 10x3/uL (4.8-10.8)
== END | disposition home or self-care (01) ==
LOC: D.LABREF 17:03
PROVIDERS: ATTEND Family Medicine
DX: D62 Acute posthemorrhagic anemia (principal); Z79.01 Long term (current) use of anticoagulants

== ENCOUNTER → 2019-06-14 13:53 | Outpatient (CLI) | payer MEDICARE, OTHER ==
[2019-06-14 14:30] LABS: EOSINOPHILS 3.6 % (0-7); HEMATOCRIT 31.2 % (36.0-48.0); HEMOGLOBIN 9.1 g/dL (12-16); IMMATURE GRANULOCYTES 0.4 % (0-5); LYMPHOCYTES 30.9 % (15-50); MCH 27.4 pg (26.0-34.0); MCHC 29.2 g/dL (31.0-37.0); MEAN PLATELET VOLUME 8.9 fL (7.4-10.4); MONOCYTES 13.2 % (2-11); NEUTROPHILS 49.9 % (40-80); PLATELET COUNT 383 10x3/uL (130-400); RBC 3.32 10x6/uL (4.00-5.40); WBC 4.5 10x3/uL (4.8-10.8)
[2019-06-14 15:10] LABS: PROTIME 46.4 SECONDS (11.6-15.0)
[2019-06-14 15:19] LABS: INR 5.14 (0.85-1.17)
== END | disposition home or self-care (01) ==
LOC: D.LABREF 13:53
PROVIDERS: ATTEND Family Medicine
DX: T45.515A Adverse effect of anticoagulants, initial encounter (principal)

== ENCOUNTER → 2019-08-02 21:24 | Outpatient (CLI) | payer MEDICARE, OTHER ==
[2019-08-02 21:51] LABS: BASOPHILS 0.3 % (0-2); EOSINOPHILS 4.4 % (0-7); HEMOGLOBIN 9.3 g/dL (12-16); IMMATURE GRANULOCYTES 0.3 % (0-5); LYMPHOCYTES 26.2 % (15-50); MCH 24.2 pg (26.0-34.0); MCHC 28.2 g/dL (31.0-37.0); MCV 85.7 fL (80.0-100.0); MEAN PLATELET VOLUME 9.4 fL (7.4-10.4); MONOCYTES 14.3 % (2-11); NEUTROPHILS 54.5 % (40-80); PLATELET COUNT 350 10x3/uL (130-400); RBC 3.85 10x6/uL (4.00-5.40); RDW 18.1 % (11.5-14.5)
[2019-08-02 21:59] LABS: INR 1.55 (0.85-1.17); PROTIME 18.4 SECONDS (11.6-15.0)
== END | disposition home or self-care (01) ==
LOC: D.LABREF 21:24
PROVIDERS: ATTEND Family Medicine
DX: I48.91 Unspecified atrial fibrillation (principal); D64.9 Anemia, unspecified